=== PATIENT | female | born 1950 | race Caucasian/White ===

== ENCOUNTER → 2019-11-22 11:27 | Outpatient (CLI) | payer MEDICARE, BC, SELFPAY ==
--- NOTE | ~2019-11-22 | MM_ITS ---
EXAMINATION: MM screening kamila BI w david HISTORY: Screening mammogram TECHNIQUE: Craniocaudal and mediolateral oblique 3-D tomosynthesis images were obtained and synthetic 2-D images were generated. CAD analysis was submitted and interpreted. COMPARISON: 10/23/2018, 10/13/2017, 10/01/2016 bilateral digital screening mammogram examinations BREAST PARENCHYMAL COMPOSITION: There are scattered areas of fibroglandular density. FINDINGS: Occasional benign calcifications. Stable mild fibroglandular asymmetry. There is no evid ence of suspicious mass, calcification, or architectural distortion to suggest malignancy in either b reast. There has been no suspicious interval change. IMPRESSION: 1. No mammographic evidence of malignancy. 2. Recommend routine screening mammography in one year. BI-RADS Category 2: Benign finding(s). Reviewed, dictated and finalized at location A. 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
== END ==
PROVIDERS: PCP Internal Medicine; Visit Provider Internal Medicine
DX: Z12.31 Encounter for screening mammogram for malignant neoplasm of breast (principal)
CPT/HCPCS: 77063; 77067

== ENCOUNTER 2020-03-07 12:15 | Outpatient (CLI) | payer MEDICARE, BC, SELFPAY ==
--- NOTE | ~2020-03-07 | CT_ITS ---
EXAMINATION: CT abdomen w con INDICATION: Primary biliary cirrhosis, elevated liver function tests TECHNIQUE: Computed tomographic images of the abdomen were obtained after the administration of 100 c c of Omnipaque 350 intravenous contrast. The dose-length product (DLP) was 743.77 mGy-cm. Automated e xposure control and iterative reconstruction technique were employed. COMPARISON: 02/22/2015 FINDINGS: The lung bases are clear. The heart size is normal. Chronic mild liver surface nodularity i s again noted. A 2.6 cm mass of liver segment is decrease in size and has previously been characte rized as a hemangioma. There is diffuse heterogeneous enhancement of the liver, consistent with histo ry of primary biliary cirrhosis Stones are present in the nondistended gallbladder. The spleen, pancr eas, and adrenal glands are normal. There are areas of cortical scarring in the right kidney. The lef t kidney is unremarkable. There is chronic mild upper abdominal lymphadenopathy which is likely react felecia. There is severe thoracolumbar spondylosis. IMPRESSION: 1. Findings consistent with history of primary biliary cirrhosis including liver surface nodularity a nd heterogeneous enhancement of the liver. 2. Cholelithiasis without evidence of cholecystitis. Reviewed, dictated and finalized at location A. IMPRESSION: 1. Findings consistent with history of primary biliary cirrhosis including live r surface nodularity and heterogeneous enhancement of the liver. 2. Cholelithiasis without evidence of cholecystitis.
[2020-03-07 12:38] LABS: Estimated Glomerular Filt Rate > 60
== END 2020-03-07 12:16 | disposition home or self-care (01) ==
LOC: ANHIMG 12:19
PROVIDERS: PCP Internal Medicine; Visit Provider Internal Medicine Gastroenterology
DX: K74.3 Primary biliary cirrhosis (principal); R94.5 Abnormal results of liver function studies; K80.20 Calculus of gallbladder without cholecystitis without obstruction
CPT/HCPCS: 36415; 74160; Q9967

== ENCOUNTER → 2020-06-29 10:29 | Outpatient (CLI) | payer MEDICARE, BC, SELFPAY ==
--- NOTE | ~2020-06-29 | XR_ITS ---
EXAMINATION: HAND-SHEA ARTHRITIS 3+VIEWS DATE: 06/29/2020 11:03 INDICATION: Rheumatoid arthritis with limited range of motion at both hands, right greater than left TECHNIQUE: Posteroanterior, lateral, and oblique views of the left and of the right hands as well as a ballcatchers view of both hands were obtained. COMPARISON: None. FINDINGS: No fracture at either hand. Advanced osteoarthritis at the bilateral first carpal metacarpal joints w ith remodeling of the bones at both sides of the joint space and mild dorsal subluxation of the base of the first metacarpals. Severe osteoarthritis at the right second distal interphalangeal joint. Mod erate severity at the bilateral triscaphe joints and at the majority the remaining interphalangeal alla ints of both hands. There are secondary mild ulnar angulation at the right third and fifth proximal i nterphalangeal joints. Mild osteoarthritis at the bilateral first carpal metacarpal joints. No cortic al erosions or significant joint space narrowing at the remaining metacarpophalangeal joints to sugge st rheumatoid arthritis. IMPRESSION: 1. Polyarticular osteoarthritis, advanced at the bilateral first carpometacarpal joints and moderate to severe at many of the remaining joints in both hands. No findings to suggest rheumatoid arthritis. Reviewed, dictated and finalized at location A. IMPRESSION: 1. Polyarticular osteoarthritis, advanced at the bilateral first carpometacarpa l joints and moderate to severe at many of the remaining joints in both hands. No findings to suggest rheumatoid arthritis.
== END ==
PROVIDERS: PCP Internal Medicine; Visit Provider Internal Medicine
DX: E03.9 Hypothyroidism, unspecified (principal); M05.79 Rheumatoid arthritis with rheumatoid factor of multiple sites without organ or systems involvement
CPT/HCPCS: 73130

== ENCOUNTER → 2020-10-08 13:17 | Outpatient (CLI) | payer MEDICARE, BC, SELFPAY ==
--- NOTE | ~2020-10-08 | CT_ITS ---
EXAMINATION: CT abdomen wo/w con DATE: 10/08/2020 13:53 INDICATION: Abdominal pain. Primary biliary cirrhosis. TECHNIQUE: Computed tomography (CT) of the abdomen was performed without and with 100 mL Omnipaque-35 0 intravenous contrast. Automated exposure control and iterative reconstruction technique were employ ed. The dose-length product was 1885.19 mGy-cm. COMPARISON: 03/07/2020 FINDINGS: Unchanged minimal lingular atelectasis/scarring. Heart size is normal. No pericardial or pleural effu baljeet. Small diverticulum arising from the fundus of the stomach. Hepatomegaly with nodular liver surf kuldeep consistent with given history of cirrhosis with minimal perihepatic ascites. There is a subtle 3. 5 x 2.1 cm region of decreased attenuation on the precontrast images in segment 7 of liver which sunni esponds to a hemangioma identified with characteristic contrast enhancement pattern on prior MRI date d 02/17/2009. There is no discernible contrast enhancement or washout relative to the surrounding live r on the postcontrast images. No other suspicious hepatic lesions identified. A few small calcified g allstones in the dependent aspect of the partially decompressed, normal-appearing gallbladder. No int ra or extra hepatic biliary ductal dilation. Splenomegaly measuring 14.2 cm in craniocaudal length. S plenic calcification consistent with old granulomatous disease. Pancreas, bilateral adrenal glands an d kidneys are normal. Diffuse mesenteric edema and multiple mildly enlarged gastrohepatic, periportal , portacaval and para-aortic lymph nodes which are likely reactive. The visualized tip of the appendi x is normal. No bowel obstruction. Severe thoracolumbar spondylosis. IMPRESSION: 1. Cirrhosis with portal venous hypertension as evidenced by both splenomegaly, minimal perihepatic a scites and diffuse mesenteric edema. 2. Mild likely reactive abdominal lymphadenopathy. 3. Cholelithiasis. Reviewed, dictated and finalized at location A. 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 Cirrhosis with portal venous hypertension as evidenced by both splenomegaly, minimal perihepatic ascites and diffuse mesenteric edema. 2. Mild likely reactive abdominal lymphadenopathy. 3. Cholelithiasis.
[2020-10-08 13:38] LABS: Estimated Glomerular Filt Rate > 60
== END | disposition home or self-care (01) ==
PROVIDERS: PCP Internal Medicine; Visit Provider Internal Medicine
DX: R10.9 Unspecified abdominal pain (principal); K74.3 Primary biliary cirrhosis; K80.20 Calculus of gallbladder without cholecystitis without obstruction
CPT/HCPCS: 74170; Q9967

== ENCOUNTER → 2020-11-16 00:30 | Outpatient (CLI) | payer MEDICARE, BC, SELFPAY ==
[2020-11-16 17:47] LABS: SARS-CoV-2 RNA PCR Negative
== END ==
PROVIDERS: PCP Internal Medicine; Visit Provider Internal Medicine Gastroenterology
DX: Z01.812 Encounter for preprocedural laboratory examination (principal); Z20.822 Contact with and (suspected) exposure to COVID-19
CPT/HCPCS: C9803; U0003; U0005

== ENCOUNTER 2020-11-19 00:50 | Day surgery (SDC) | payer MEDICARE, BC, SELFPAY ==
[2020-11-09 09:48] VITALS: BMI 32.9
[2020-11-19 08:09] VITALS: BP 146/63; PULSE 74; RESP 20; TEMP 36.8; O2SAT 97
[2020-11-19] MEDS: LACTATED RINGERS 1,000 ML 150 ML IV CONT (08:18)
--- NOTE | 2020-11-19 09:08 | PM.HPGS ---
History of Present Illness History of Present Illness Consent: Risks, benefits, and alternatives have been discussed and questions answered. Patient agrees to proceed with procedure. Chief complaint: hx of colon polyps, Primary Biliary Cirrhosis Narrative: Sheba Nunez is a 70 year old female with a history of multiple colon polyps. She is also having epigastric abdominal pain PMFSH Past Medical History Medical History Allergies OSCAR positive (~09/2020) Asthma H/O gastroesophageal reflux (GERD) Mitral valve disease Psoriasis Psoriasis with arthropathy Surgical History Surgical History H/O tubal ligation History of mandibular surgery Family History Family History Father Cerebrovascular accident Family history of heart disease in male family member before age 55 Family history of cardiovascular disease Social History Social History Smoking packs per day: 1.5 Smoking cigarettes per day: 30.0 Years smoked: 50 Smoking pack-years: 75.00 Smoking status: Former smoker Tobacco type: cigarettes Smoking end date: 09/21/10 Alcohol intake: current Drinks per week: 5 Substance use type: does not use Living arrangements: alone Spiritual care concerns: No Meds Home Medications and Allergies Home Medications Medication Instructions Recorded Confirmed Type aspirin 81 mg tablet,delayed 81 mg PO DAILY 08/26/19 11/13/20 History release calcium carbonate 600 mg(1,500 1 tablet PO BID 08/26/19 11/13/20 History mg)-vitamin D3 800 unit chewable tablet folic acid 1 mg tablet 1 mg PO DAILY 08/26/19 11/13/20 History albuterol sulfate 90 mcg/actuation 1 inhalation INHALATION Q4H PRN 02/20/20 11/13/20 History aerosol inhaler umeclidinium 62.5 mcg-vilanterol 1 inhalation INHALATION Q24H #14 04/16/20 11/13/20 Rx 25 mcg/actuation powdr for each inhalation lansoprazole 30 mg capsule,delayed 30 mg PO DAILY #90 cap 08/20/20 11/13/20 Rx release lisinopril 10 1 tablet PO DAILY #90 tablet 09/03/20 11/13/20 Rx mg-hydrochlorothiazide 12.5 mg tablet omega 5-kot-ukh-fish oil 1,200 mg 1 cap PO DAILY 09/04/20 11/13/20 History (144 mg-216 mg) capsule ursodiol 300 mg capsule See Rx Instructions .ROUTE 09/17/20 11/13/20 Rx .COMPLEX #270 cap levothyroxine 200 mcg capsule 200 mcg PO DAILY #90 cap 10/10/20 11/13/20 Rx Allergies Allergy/AdvReac Type Severity Reaction Status Date / Time cefuroxime Allergy Unknown Swelling Verified 11/19/20 08:05 of Lip/Tongue/Throat Vital Signs Vital Signs - 24 hr 11/19/20 08:09 Temperature 36.8 C Pulse Rate 74 Respiratory Rate 20 Blood Pressure 146/63 H Pulse Oximetry 97 Exam Const: General: alert Orientation/consciousness: patient oriented x3 Resp: Auscultation: clear to auscultation bilaterally Cardio: Rhythm: regular rhythm GI: GI Palp: Yes Soft to palpation and No Tenderness to palpation present (GI) Neuro: General: patient oriented x3 Assessment and Plan Assessment and plan (1) Colon cancer screening: Code(s): Z12.11 - Encounter for screening for malignant neoplasm of colon Status: Acute (2) Epigastric pain: Code(s): R10.13 - Epigastric pain Status: Acute Assessment and Plan: Colonoscopy with possible biopsy or polypectomy or cautery or injection of substances.EGD with possible biopsy or dilatation or cautery.
--- NOTE | 2020-11-19 09:10 | WPDANESEPPF ---
Anes - Initial Pre Proc Eval Procedure: Operation Date: 11/19/20 09:30 Proposed Procedures p Esophagogastroduodenoscopy & Colonoscopy - Edward Marie MD Date/Time: 11/19/20 09:10 Surgeon: Edward Marie MD Pre Op Diagnosis: hx of colon polyps, Primary Biliary Cirrhosis Patient Data Age: 70 Gender: F Height: 5 ft 4 in Weight: 82.9 kg Last Vital Signs Temp 98.2 F 11/19/20 08:09 Pulse 74 11/19/20 08:09 Resp 20 11/19/20 08:09 BP 146/63 H 11/19/20 08:09 Pulse Ox 97 11/19/20 08:09 Allergies Allergy/AdvReac Type Severity Reaction Status Date / Time cefuroxime Allergy Unknown Swelling Verified 11/19/20 08:05 of Lip/Tongue/Throat Home Medications Medication Instructions Recorded Confirmed Type aspirin 81 mg tablet,delayed 81 mg PO DAILY 08/26/19 11/13/20 History release calcium carbonate 600 mg(1,500 1 tablet PO BID 08/26/19 11/13/20 History mg)-vitamin D3 800 unit chewable tablet folic acid 1 mg tablet 1 mg PO DAILY 08/26/19 11/13/20 History albuterol sulfate 90 mcg/actuation 1 inhalation INHALATION Q4H PRN 02/20/20 11/13/20 History aerosol inhaler umeclidinium 62.5 mcg-vilanterol 1 inhalation INHALATION Q24H #14 04/16/20 11/13/20 Rx 25 mcg/actuation powdr for each inhalation lansoprazole 30 mg capsule,delayed 30 mg PO DAILY #90 cap 08/20/20 11/13/20 Rx release lisinopril 10 1 tablet PO DAILY #90 tablet 09/03/20 11/13/20 Rx mg-hydrochlorothiazide 12.5 mg tablet omega 7-opr-wip-fish oil 1,200 mg 1 cap PO DAILY 09/04/20 11/13/20 History (144 mg-216 mg) capsule ursodiol 300 mg capsule See Rx Instructions .ROUTE 09/17/20 11/13/20 Rx .COMPLEX #270 cap levothyroxine 200 mcg capsule 200 mcg PO DAILY #90 cap 10/10/20 11/13/20 Rx Patient hx anesthesia problems: none Family hx anesthesia problems: none PMFSH Past Medical History Medical History Allergies OSCAR positive (~09/2020) Asthma H/O gastroesophageal reflux (GERD) Mitral valve disease Psoriasis Psoriasis with arthropathy Surgical History Surgical History H/O tubal ligation History of mandibular surgery Family History Family History Father Cerebrovascular accident Family history of heart disease in male family member before age 55 Family history of cardiovascular disease Social History Social History Smoking packs per day: 1.5 Smoking cigarettes per day: 30.0 Years smoked: 50 Smoking pack-years: 75.00 Smoking status: Former smoker Tobacco type: cigarettes Smoking end date: 09/21/10 Alcohol intake: current Drinks per week: 5 Substance use type: does not use Living arrangements: alone Spiritual care concerns: No Anes - Eval Final PreProcedure Day of Procedure 11/19/20 09:10 Patient weight: obese Heart: regular rate and rhythm Lungs: clear to auscultation Airway: Mallampati scale class II Neurological: alert and oriented Last oral intake: >/= 8 hours ASA classification: III Emergent: no Anesthetic plan: proceed Anesthesia type and monitoring: general GIVS and standard monitoring Informed Consent: The patient's anesthetic plan and its attendant risks and benefits were discussed with the patient/family/POA. Questions were solicited and answers provided to the satisfaction of the patient/family/POA.
[2020-11-19 09:57] VITALS: BP 95/57; PULSE 67; RESP 24; O2SAT 95
[2020-11-19 10:07] VITALS: BP 122/74; PULSE 70; RESP 20; O2SAT 98
[2020-11-19 10:17] VITALS: BP 121/68; PULSE 70; RESP 20; O2SAT 99
[2020-11-19] MEDS: SIMETHICONE ORAL SUSPENSION 20 MG/0.3 ML 30 ML BOTTLE 0.6 ML IRRIGATION (10:35)
== END 2020-11-19 10:31 | disposition home or self-care (01) ==
PROVIDERS: PCP Internal Medicine; Visit Provider Internal Medicine Gastroenterology
PROC: 0DJ08ZZ Inspection of Upper Intestinal Tract, Via Natural or Artificial Opening Endoscopic (ICD-10-PCS; CPT 43235; principal; 2020-11-19 09:30)
DX: Z12.11 Encounter for screening for malignant neoplasm of colon (principal); D12.0 Benign neoplasm of cecum; D12.3 Benign neoplasm of transverse colon; K31.7 Polyp of stomach and duodenum; I85.00 Esophageal varices without bleeding; K21.9 Gastro-esophageal reflux disease without esophagitis; I05.9 Rheumatic mitral valve disease, unspecified; L40.50 Arthropathic psoriasis, unspecified; J45.909 Unspecified asthma, uncomplicated; Z87.891 Personal history of nicotine dependence; Z79.82 Long term (current) use of aspirin
CPT/HCPCS: 45385; 43251; 88305; A9270; J2001; J2704; J7120

== ENCOUNTER → 2020-11-28 10:33 | Outpatient (CLI) | payer MEDICARE, BC, SELFPAY ==
--- NOTE | ~2020-11-28 | CT_ITS ---
EXAMINATION:CT lung screening DATE: 11/28/2020 10:58 INDICATION: Personal history of tobacco dependence. Smoker who quit 10 years ago with 75 pack year hi story. TECHNIQUE: Computed tomography (CT) of the chest was performed without intravenous contrast. Automate d exposure control and iterative reconstruction technique were employed. The dose-length product (DLP ) was 82.96 mGy-cm. COMPARISON: Chest CT 01/07/19 FINDINGS: There is mild atelectasis bilaterally. There is mild emphysema. Calcified right lung nodule s and calcified right hilar lymph nodes are consistent with old granulomatous disease. No pleural eff usion. The heart size is normal. There are coronary artery calcifications. No pericardial effusion. T he liver demonstrates surface nodularity, consistent with cirrhosis. There is a moderate volume of as cites. There is severe cervical and thoracic spondylosis. IMPRESSION: 1. Lung-RADS category 1: Negative. Continue annual screening with noncontrast low-dose chest CT in 12 months. 2. Cirrhosis of the liver. 3. Moderate volume of ascites. Reviewed, dictated and finalized at location A. 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 Lung-RADS category 1: Negative. Continue annual screening with noncontrast l ow-dose chest CT in 12 months. 2. Cirrhosis of the liver. 3. Moderate volume of ascites.
== END ==
PROVIDERS: PCP Internal Medicine; Visit Provider Internal Medicine
DX: Z12.2 Encounter for screening for malignant neoplasm of respiratory organs (principal); Z87.891 Personal history of nicotine dependence; K76.0 Fatty (change of) liver, not elsewhere classified; R18.8 Other ascites
CPT/HCPCS: 71271

== ENCOUNTER → 2020-11-28 10:34 | Outpatient (CLI) | payer MEDICARE, BC, SELFPAY ==
--- NOTE | ~2020-11-28 | XR_ITS ---
EXAMINATION: XR sacroiliac joints min 3V INDICATION: Psoriasis, chronic low back pain TECHNIQUE: AP and bilateral oblique views of the sacroiliac joints are obtained. COMPARISON: None available FINDINGS: The joint spaces are normal. There is no abnormal erosion or sclerosis of the sacroiliac alla ints. No fracture is identified. There is mild lower lumbar spondylosis. Phleboliths are present in t he pelvis. IMPRESSION: 1. Unremarkable examination. Reviewed, dictated and finalized at location A. 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
== END ==
PROVIDERS: PCP Internal Medicine; Visit Provider Internal Medicine
DX: L40.9 Psoriasis, unspecified (principal)
CPT/HCPCS: 72202

== ENCOUNTER 2020-11-29 09:01 | Outpatient (CLI) | payer MEDICARE, BC, SELFPAY | END 2020-11-29 09:02 | disposition home or self-care (01) | LOC: ANHCOVIDVC 09:01 | PROVIDERS: PCP Internal Medicine | DX: Z23 Encounter for immunization (principal) | CPT/HCPCS: 0001A; 91300 ==

== ENCOUNTER 2020-12-20 09:01 | Outpatient (CLI) | payer MEDICARE, BC, SELFPAY | END 2020-12-20 09:02 | disposition home or self-care (01) | LOC: ANHCOVIDVC 09:01 | PROVIDERS: PCP Internal Medicine | DX: Z23 Encounter for immunization (principal) | CPT/HCPCS: 0002A; 91300 ==

== ENCOUNTER 2021-01-07 08:08 | Outpatient (CLI) | payer MEDICARE, BC, SELFPAY ==
--- NOTE | ~2021-01-07 | XR_ITS ---
XR pelvis 1-2V DATE: 01/07/2021 08:28 INDICATION: Low back pain, right posterior hip pain. No injury. TECHNIQUE: AP view COMPARISON: None FINDINGS: The pubic symphysis and sacroiliac joints are intact. No pelvic fracture or bone destructio n is evident. No fracture or dislocation is evident at either hip. Hip joint spaces are symmetric and relatively preserved. IMPRESSION: No significant abnormality Reviewed, dictated and finalized at location A. IMPRESSION: No significant abnormality
--- NOTE | ~2021-01-07 | XR_ITS ---
XR lumbar spine 2-3V DATE: 01/07/2021 08:28 INDICATION: Low back pain radiating to right hip TECHNIQUE: AP, lateral, coned lateral lumbosacral views COMPARISON: None FINDINGS: Prominent eburnation and degenerative spurring at multiple lower thoracic interspaces. There are 6 functional lumbar vertebrae. There is multilevel degenerative disc disease, most pronounced at the last lumbosacral interspaces. There is prominent degenerative change at the apophyseal joints with slight grade 1 anterolisthesis b etween last 2 functional lumbar vertebra as result. The lumbar pedicles are intact. The sacroiliac joints are intact. IMPRESSION: Extensive degenerative changes of the lower thoracic and lumbar spine Reviewed, dictated and finalized at location A. IMPRESSION: Extensive degenerative changes of the lower thoracic and lumbar spi ne
[2021-01-10 06:09] LABS: Triiodothyronine T3 Free 2.4 pg/mL (2.3-4.2)
== END 2021-01-07 08:09 | disposition home or self-care (01) ==
PROVIDERS: PCP Internal Medicine; Visit Provider Internal Medicine
DX: E03.9 Hypothyroidism, unspecified (principal); M51.34 Other intervertebral disc degeneration, thoracic region; M51.36 Other intervertebral disc degeneration, lumbar region
CPT/HCPCS: 36415; 72100; 72170; 84439; 84443; 84481

== ENCOUNTER 2021-01-14 07:57 | Outpatient (CLI) | payer MEDICARE, BC, SELFPAY ==
--- NOTE | 2021-01-14 | EST_ITS ---
Patient Info Name: Sheba Nunez Age: 70 years : 1950 Gender: Female Ht: 63 in Wt: 170 lbs BSA: 1.88 m2 Exam Date: 01/14/2021 9:10 AM Exam Location: [facility] Stress Patient Status: Outpatient Admit Date: 01/14/2021 Staff Ordering Physician: Solo Alcocer MD Attending Provider: Solo Alcocer MD Exercise Technologist: Jenny Gaytan RDCS Exercise Physician: Gerald Rausch DO Exam Type: CA stress jennifer w NM Study Info A regadenoson stress test was performed. Summary 1. 1. Negative lexiscan stress test for ischemic ST changes by ECG criteria. 2. 2. Stable hemodynamics throughout the test. 3. 3. Nuclear scan to follow and will be reported separately. Please correlate with it. 4. 4. Patient informed of the above results. Protocol: Lexiscan Stress ECG Details Stage: REST Duration (min): 8 min : 4 sec HR (bpm): 71 SBP (mmHg): 119 DBP (mmHg): 67 Stage: REST Duration (min): 10 min : 24 sec HR (bpm): 70 SBP (mmHg): 119 DBP (mmHg): 67 Stage: STAGE 1 Duration (min): 1 min : 0 sec HR (bpm): 86 SBP (mmHg): 123 DBP (mmHg): 71 Stage: RECOVERY Duration (min): 1 min : 0 sec HR (bpm): 91 SBP (mmHg): 123 DBP (mmHg): 53 Stage: RECOVERY Duration (min): 2 min : 0 sec HR (bpm): 90 SBP (mmHg): 123 DBP (mmHg): 53 Stage: RECOVERY Duration (min): 3 min : 0 sec HR (bpm): 90 SBP (mmHg): 121 DBP (mmHg): 55 Stage: RECOVERY Duration (min): 3 min : 8 sec HR (bpm): 89 SBP (mmHg): 121 DBP (mmHg): 55 Rest HR: 70 bpm Peak HR: 93 bpm Rest Sys BP: 119 mmHg Peak Sys BP: 123 mmHg Max Pred HR: 152 bpm % Max Pred HR: 61 % Target HR: 129 bpm Max RPP: 11,439 bpm*mmHg Termination Reason: Completed protocol Cardiac Symptoms: Shortness of breath Total Time: 1 min : 0 sec Rest Munson BP: 67 mmHg Peak Munson BP: 71 mmHg Total Dose: 0.4 mg Resting ECG Sinus rhythm, borderline ST-T wave abnormality in inferior leads. Stress ECG No ST changes. Arrhythmias None. Report Signatures
--- NOTE | ~2021-01-14 | NM_ITS ---
EXAMINATION: NM jennifer stress w perfusion DATE: 01/14/2021 11:44 INDICATION: Chest pain. TECHNIQUE: Rest images were obtained following intravenous administration of 10.9 mCi Tc99m tetrofosm in (Myoview). The patient was infused intravenously with Lexiscan (regadenoson). Then, 33.4 mCi Tc99m tetrofosmin (Myoview) was administered intravenously, and stress images were obtained. Data was lana nstructed into short axis and horizontal and vertical long axis SPECT images. Gated SPECT images were also obtained. COMPARISON: None. FINDINGS: There is no definite reversible or fixed perfusion abnormality to suggest ischemia or infar ction. There is no segmental wall motion abnormality. Left ventricular ejection fraction measures > 70%. IMPRESSION: 1. No definite ischemia or infarct. 2. Normal left ventricular ejection fraction measuring >70%. Reviewed, dictated and finalized at location A.
== END 2021-01-14 07:58 | disposition home or self-care (01) ==
PROVIDERS: PCP Internal Medicine; Visit Provider Internal Medicine
DX: R07.9 Chest pain, unspecified (principal)
CPT/HCPCS: 78452; 93017; A9502; J2785

== ENCOUNTER → 2021-01-26 08:09 | Outpatient (CLI) | payer MEDICARE, BC, SELFPAY ==
--- NOTE | ~2021-01-26 | MR_ITS ---
EXAMINATION: MR cervical spine wo con DATE: 01/26/2021 09:45 INDICATION: Neck pain. TECHNIQUE: Magnetic resonance imaging (MRI) of the cervical spine was performed without intravenous c ontrast. Sequences included sagittal T2-weighted FSE, sagittal STIR FSE, sagittal T1-weighted FSE, ax ial MERGE, and axial T2-weighted FSE. COMPARISON: Cervical spine MRI 10/15/2011 FINDINGS: There is 11 degrees dextroscoliosis of cervical spine. There is 2 mm anterolisthesis of C4 on C5, 2 mm retrolisthesis of C5 on C6, and 2 mm anterolisthesis of C7 on T1. There is mildly decreas ed disc height at C4-C5 and severely decreased disc height at C5-C6 and C6-C7. The spinal cord signal intensity is normal. The following disc levels are specifically discussed: C2-C3: The disc does not extend beyond the endplate margin. There is ankylosis of the uncovertebral j oints without hypertrophy. There is ankylosis of the facet joints without hypertrophy. There is no ne ural foraminal stenosis. There is no central canal stenosis. C3-C4: The disc does not extend beyond the endplate margin. There is ankylosis of the uncovertebral j oints without hypertrophy. There is ankylosis of the facet joints with mild hypertrophy. There is mil d bilateral neural foraminal stenosis. There is no central canal stenosis. C4-C5: The disc does not extend beyond the endplate margin. There is severe bilateral uncovertebral j oint osteoarthritis. There is severe bilateral facet joint osteoarthritis. There is moderate bilatera l neural foraminal stenosis. There is mild central canal stenosis. C5-C6: The disc is bulging. There is severe bilateral uncovertebral joint osteoarthritis. There is mi ld right and severe left facet joint osteoarthritis. There is mild right and moderate left neural for aminal stenosis. There is mild central canal stenosis with ventral indentation of the spinal cord. C6-C7: The disc is bulging. There is severe bilateral uncovertebral joint osteoarthritis. There is mi ld right and moderate left facet joint osteoarthritis. There is mild right and moderate left neural f oraminal stenosis. There is mild central canal stenosis with ventral indentation of the spinal cord. C7-T1: The disc does not extend beyond the endplate margin. There is no uncovertebral joint osteoarth ritis. There is severe bilateral facet joint osteoarthritis. There is mild bilateral neural foraminal stenosis. There is no central canal stenosis. IMPRESSION: 1. Severe cervical spondylosis, stable from 10/15/2011. 2. Ankylosis of the uncovertebral joints and facet joints at C2-C3 and C3-C4. Reviewed, dictated and finalized at location A.
--- NOTE | ~2021-01-26 | MR_ITS ---
EXAMINATION: MR lumbar spine wo con DATE: 01/26/2021 10:05 INDICATION: Low back pain. TECHNIQUE: Magnetic resonance imaging (MRI) of the lumbar spine was performed without intravenous con trast. Sequences included sagittal T2-weighted FSE, sagittal T2-weighted FS FSE, sagittal T1-weighted FSE, and axial T2-weighted FSE. COMPARISON: Lumbar spine radiographs 01/07/2021 FINDINGS: There is 4 degrees dextrocurvature of lumbar spine. There is 3 mm retrolisthesis of T12 on L1, L1 on L2, L2 on L3, and L3 on L4. There is mild chronic anterior wedging of T11 and T12 vertebral bodies. There is severely decreased disc height from T10-T11 through T12-L1, moderately decreased di sc height from L1-L2 through L4-L5, and severely decreased disc height at L5-S1. There is a hemangiom a in L2 vertebral body. The distal spinal cord signal intensity is normal. The conus medullaris is at L1-L2. The following disc levels are specifically discussed: L1-L2: The disc is bulging. There is moderate bilateral facet joint osteoarthritis. There is mild ofe ateral neural foraminal stenosis. There is mild central canal stenosis. L2-L3: The disc is bulging. There is moderate bilateral facet joint osteoarthritis. There is mild ofe ateral neural foraminal stenosis. There is mild central canal stenosis. L3-L4: The disc is bulging and has an annular fissure. There is mild bilateral facet joint osteoarthr itis. There is mild right neural foraminal stenosis. There is mild central canal stenosis. L4-L5: The disc is bulging and has an annular fissure. There is severe bilateral facet joint osteoart hritis. There is mild bilateral neural foraminal stenosis. There is moderate central canal stenosis. L5-S1: The disc is bulging and has an annular fissure. There is severe right and moderate left facet joint osteoarthritis. There is mild bilateral neural foraminal stenosis. There is mild central canal stenosis. IMPRESSION: 1. Severe lumbar spondylosis. Reviewed, dictated and finalized at location A.
== END ==
PROVIDERS: PCP Internal Medicine; Visit Provider Nurse Practitioner Family
DX: M47.892 Other spondylosis, cervical region (principal); M47.896 Other spondylosis, lumbar region
CPT/HCPCS: 72141; 72148

== ENCOUNTER → 2021-01-31 10:08 | Outpatient (CLI) | payer MEDICARE, BC, SELFPAY ==
--- NOTE | ~2021-01-31 | MM_ITS ---
EXAMINATION: MM screening [facility] BI w david HISTORY: Screening mammogram TECHNIQUE: Craniocaudal and mediolateral oblique 3-D tomosynthesis images were obtained and synthetic 2-D images were generated. CAD analysis was submitted and interpreted. COMPARISON: 11/22/2019, 10/23/2018, 10/13/2017 BREAST PARENCHYMAL COMPOSITION: There are scattered areas of fibroglandular density. FINDINGS: There is no evidence of suspicious mass, calcification, or architectural distortion to sugg est malignancy in either breast. There has been no suspicious interval change. IMPRESSION: 1. No mammographic evidence of malignancy. 2. Recommend routine screening mammography in one year. BI-RADS Category 1: Negative Reviewed, dictated and finalized at location A.
== END ==
PROVIDERS: PCP Internal Medicine; Visit Provider Internal Medicine
DX: Z12.31 Encounter for screening mammogram for malignant neoplasm of breast (principal)
CPT/HCPCS: 77063; 77067

== ENCOUNTER 2021-03-29 14:08 | Inpatient (IN) | payer MEDICARE, BC, SELFPAY ==
--- NOTE | ~2021-03-29 | US_ITS ---
EXAMINATION: US retroperitoneal duplex ltd DATE: 03/30/2021 09:21 INDICATION: Hypertension. TECHNIQUE: Multiple grayscale, color Doppler, and pulsed Doppler images of the kidneys and renal jennifer joanna were obtained. COMPARISON: CT abdomen 10/08/2020 FINDINGS: The aorta peak systolic velocity is 151 cm/s. The right renal artery peak systolic velocity is 99 cm/ s in the proximal segment, 92 cm/s in the mid segment, and 53 cm/s in the distal segment. The left re nal artery peak systolic velocity is 64 cm/s in the proximal segment, 89 cm/s in the mid segment, and 52 cm/s in the distal segment. IMPRESSION: 1. No Doppler evidence of renal artery stenosis. The prior CT similarly shows no significant renal a rtery stenosis. Reviewed, dictated and finalized at location A. IMPRESSION: 1. No Doppler evidence of renal artery stenosis. The prior CT similarly shows no significant renal artery stenosis.
--- NOTE | ~2021-03-29 | US_ITS ---
EXAMINATION: US renal BI DATE: 03/30/2021 09:20 INDICATION: Acute kidney injury. TECHNIQUE: Multiple ultrasound grayscale images of the kidneys were obtained. COMPARISON: CT abdomen 10/08/2020 FINDINGS: The right kidney measures 10.1 x 4.9 x 4.1 cm. The left kidney measures 11.8 x 6.2 x 5.7 cm. The kidn eys demonstrate normal parenchymal echogenicity. There is no hydronephrosis. The bladder is normal. T here is a small volume of ascites. IMPRESSION: 1. Normal kidneys. No hydronephrosis. 2. Small volume of ascites. Reviewed, dictated and finalized at location A.
[2021-03-29 14:46] VITALS: BP 94/48; PULSE 83; RESP 18; TEMP 36.9; O2SAT 98
[2021-03-29 15:12] LABS: Basophils Absolute Auto 0.1 K/mm3 (0.0-0.1); Eosinophils Absolute Auto 0.2 K/mm3 (0-0.3); Eosinophils Percent Auto 1.3 % (0-4.4); Hematocrit 40.2 % (37.0-47.0); Hemoglobin 14.2 g/dL (12.0-15.0); Immature Granulocyte Absolute 0.03 K/mm3 (0.00-0.031); Immature Granulocyte Percent A 0.3 % (0-0.5); Lymphocytes Percent Auto 22.9 % (18.3-44.2); Mean Corpuscular HGB Conc 35.3 g/dl (32-36); Mean Corpuscular Hemoglobin 33.6 pg (26-34); Mean Corpuscular Volume 95.3 fl (80-100); Mean Platelet Volume 9.8 fl (7.4-10.4); Monocytes Absolute Auto 1.3 K/mm3 (0.1-0.6); Neutrophils Absolute Auto 7.2 K/mm3 (1.3-6.7); Neutrophils Percent Auto 63.5 % (45.5-73.1); Platelet Count Result 533 k/mm3 (150-375); Red Blood Count 4.22 M/mm3 (4.2-5.4); Red Cell Distribution Width 15.4 % (11.5-14.5); White Blood Count 11.4 K/mm3 (4.5-10.0)
[2021-03-29 15:25] LABS: Alanine Aminotransferase 19 U/L (4-35); Albumin Level 3.6 g/dL (3.5-5.1); Alkaline Phosphatase 367 U/L (38-126); Anion Gap 11 mmol/L (8-16); Aspartate Amino Transferase 43 U/L (14-36); Bilirubin,Total 1.6 mg/dL (0.2-1.3); Blood Urea Nitrogen 30 mg/dL (7-17); Calcium 9.3 mg/dL (8.4-10.2); Carbon Dioxide 24 mmol/L (22-30); Chloride 103 mmol/L (98-107); Estimated CRCL calculation 17 ml/min; Estimated Glomerular Filt Rate 17; Glucose 103 mg/dL (65-105); Lipase 272 U/L (23-300); Potassium 3.1 mmol/L (3.4-5.0); Sodium 138 mmol/L (137-145)
[2021-03-29 17:00] VITALS: BP 102/49; PULSE 82; RESP 14; O2SAT 99
--- NOTE | 2021-03-29 17:15 | ED.GENADULT ---
HPI - General Adult General Chief complaint: Recheck/Abnormal Lab/Rx Stated complaint: elevated BUN Time Seen by Provider: 03/29/21 17:05 History of Present Illness HPI narrative: Patient is 70 years old white female history of primary biliary cirrhosis, scheduled by Dr. Vance who works at [facility] to get CT scan of the abdomen and pelvis for regular checkup. Blood work-up today showed creatinine of 2.6. Patient was asked to go to the emergency room for further evaluation. Patient is asymptomatic, denying any fever, chills, nausea, vomiting, abdominal pain, chest pain, shortness of breath, increased the size of the ascites. Patient also would like to go home after evaluation. Patient is fully vaccinated for COVID-19. Patient was started on Lasix 20 mg once a day on March [address] Vance for ascites. Patient also not been drinking enough fluid lately. Related Data Home Medications Medication Instructions Recorded Confirmed calcium carbonate 600 mg(1,500 1 tablet PO BID 08/26/19 03/26/21 mg)-vitamin D3 800 unit chewable tablet folic acid 1 mg tablet 1 mg PO DAILY 08/26/19 03/26/21 albuterol sulfate 90 mcg/actuation 1 inhalation INHALATION Q4H PRN 02/20/20 03/26/21 aerosol inhaler omega 6-wet-cul-fish oil 1,200 mg 1 cap PO DAILY 09/04/20 03/26/21 (144 mg-216 mg) capsule vitamin B complex 1 tablet PO DAILY 11/26/20 03/26/21 furosemide 20 mg tablet 20 mg PO QAM 03/13/21 03/26/21 spironolactone 50 mg tablet 50 mg PO DAILY 03/13/21 03/26/21 Allergies Allergy/AdvReac Type Severity Reaction Status Date / Time No Known Allergies Allergy Verified 03/29/21 14:53 Review of Systems Review of Systems: Narrative: CONSTITUTIONAL: Denies fever, chills, or sweats. EYES: Denies visual changes, redness, or discharge. ENT: Denies rhinorrhea, congestion, sore throat, or otalgia. CARDIOVASCULAR: Denies chest pain, palpitations, or edema. RESPIRATORY: Denies cough or dyspnea. GASTROINTESTINAL: Denies abdominal pain, nausea, vomiting, or diarrhea. GENITOURINARY: Denies dysuria or hematuria. SKIN: Denies rash or itching. MUSCULOSKELETAL: Denies back pain, joint pain, or myalgia. NEUROLOGIC: Denies headache, numbness, or weakness. PSYCHIATRIC: Denies anxiety or depression. [facility] Past Medical History Medical History Allergies OSCAR positive (~09/2020) Ascites Asthma Benign essential hypertension BMI 28.0-28.9,adult BMI 29.0-29.9,adult BMI 31.0-31.9,adult COPD (chronic obstructive pulmonary disease) KELLER (dyspnea on exertion) Encounter for Medicare annual wellness exam Encounter for routine adult health examination without abnormal findings Follow up H/O gastroesophageal reflux (GERD) Hemorrhoid Hypothyroidism Low back pain Mitral valve disease Mixed hyperlipidemia On shelter drug therapy Personal history of nicotine dependence Psoriasis Psoriasis with arthropathy Umbilical hernia Surgical History Surgical History H/O tubal ligation History of colonoscopy History of mandibular surgery Family History Family History Father Cerebrovascular accident Family history of heart disease in male family member before age 55 Family history of cardiovascular disease Social History Social History Smoking packs per day: 1.5 Smoking cigarettes per day: 30.0 Years smoked: 50 Smoking pack-years: 75.00 Smoking status: Former smoker Tobacco type: cigarettes Smoking end date: 08/21/18 Alcohol intake: current Drinks per week: 5 Substance use type: does not use Spiritual care concerns: No Exam Narrative: Exam Narrative: General appearance: Well-developed, well-nourished Skin: Normal color Head: Normocephalic, nontraumatic Eyes: Clear conjunctiva ENT: Oropharynx normal, ears normal, nose normal N
[2021-03-29 17:55] LABS: Add Urine Microscopic? YES; Appearance Urine Cloudy (Clear); Bilirubin Urine Negative (Negative); Blood Urine Negative (Negative); Color Urine Amber (Yellow); Glucose Urine UA Negative (Negative); Hyaline Casts Urine 20-29 /lpf; Ketones Urine Negative (Negative); Leukocyte Esterase Ur Negative LEU/UL (Negative); Mucus Urine Rare /lpf; Nitrate Urine Negative (Negative); Protein Urine 1+ mg/dL (Negative); RBC Urine 0-2 /hpf (0-2); Specific Grav Ur 1.012 (1.001-1.035); Squamous Epithelial Cell Urine Few /hpf (Few); Urobilinogen Urine Negative mg/dL (<2.0); WBC Urine 0-3 /hpf
[2021-03-29 18:55] VITALS: BP 93/43; PULSE 77; RESP 18; O2SAT 95
[2021-03-29] MEDS: SODIUM CHLORIDE 0.9% IV 1,000 ML 999 ML IV CONT (19:49)
[2021-03-29] MEDS: POTASSIUM CHLORIDE 20 MEQ TABLET 40 MEQ PO (19:49)
[2021-03-29 20:00] VITALS: BP 84/41; PULSE 75; O2SAT 99
[2021-03-29 21:00] VITALS: BP 115/58; PULSE 85; RESP 18; TEMP 36.1; O2SAT 98
--- NOTE | 2021-03-29 21:00 | ADMGEN ---
This patient, Sheba Nunez, was admitted to Medical Room 340-01. Patient/family oriented to hospital policies and general routines including ID bracelet, bed and alarms, visiting hours, pain management, procedures, bathroom and other care routines, personal items, smoking policy, room service/diet, and visiting hours. Information on how to activate the Rapid Response Team has been discussed. Patient/Family are encouraged to report perceived risks to care and to ask questions if they do not understand what they are told or what they should do.
[2021-03-29] MEDS: SODIUM CHLORIDE 0.9% IV 1,000 ML 150 ML IV CONT (21:30)
[2021-03-29 23:31] VITALS: BP 103/46; PULSE 84; RESP 16; TEMP 36.2; O2SAT 97
--- NOTE | 2021-03-30 02:36 | PM.IMHP ---
H&P: HPI History of Present Illness Date/Time: 03/30/21 02:36 Chief Complaint: ABNORMAL LAB Narrative: THIS IS A 70-YEAR-OLD FEMALE WITH PAST MEDICAL HISTORY SIGNIFICANT FOR PRIMARY SCLEROSING CHOLANGITIS, HEPATIC SEVERAL. PATIENT PRESENTED TO THE EMERGENCY ROOM AFTER SHE WAS FOUND TO HAVE AN ABNORMAL LAB VALUE ON ROUTINE LAB WORK. CREATININE WAS ELEVATED. HOWEVER PATIENT DENIES ANY SYMPTOMS NO FEVERS NO CHILLS NO NAUSEA NO VOMITING NO DIARRHEA HAS HAD ISSUES WITH HER HEMORRHOIDS BUT NO OTHER ISSUES NO COUGH NO SPUTUM PRODUCTION NO CHEST PAIN NO SHORTNESS OF BREATH NO ABDOMINAL PAIN. ON REPEAT LAB WORK IN THE EMERGENCY SHE WAS FOUND TO HAVE A CREATININE OF 2.8. PATIENT STATED THAT SHE HAS BEEN ON 3 DIURETICS. Review of Systems Review of Systems: Narrative: ABNORMAL LAB VALUE Constitutional: Constitutional: Denies fatigue, Denies fever(s), Denies lethargy, Denies malaise and Denies weakness Eyes: Eyes: Denies change in vision ENT: Denies nasal congestion, Denies nasal discharge and Denies nasal obstruction Cardiovascular: Cardiovascular: Denies chest pain at rest, Denies irregular heart rhythm, Denies lightheadedness, Denies radiating jaw, neck or arm pain, Denies palpitations and Denies dyspnea on exertion Respiratory: Respiratory: Denies cough and Denies dyspnea Gastrointestinal: Gastrointestinal: Denies diarrhea, Denies nausea and Denies vomiting Genitourinary: Genitourinary: Reports no additional female genitourinary complaints Musculoskeletal: Musculoskeletal: Denies arthralgias and Denies joint swelling Integumentary/Breasts: Skin/Breast: Reports system reviewed and no additional complaints, except as docu Neurologic: Reports system reviewed and no additional complaints, except as documented Psychiatric: Psychiatric: Reports no additional psychiatric complaints Endocrine: Endocrine: Reports no additional endocrine complaints Hematologic/Lymphatic: Hematologic/Lymphatic: Reports no additional hematologic/lymphatic complaints Allergic/Immunologic: Allergic/Immunologic: Reports no additional allergic/immunologic complaints [facility] Past Medical History Medical History Allergies OSCAR positive (~09/2020) Ascites Asthma Benign essential hypertension BMI 28.0-28.9,adult BMI 29.0-29.9,adult BMI 31.0-31.9,adult COPD (chronic obstructive pulmonary disease) KELLER (dyspnea on exertion) Encounter for Medicare annual wellness exam Encounter for routine adult health examination without abnormal findings Follow up H/O gastroesophageal reflux (GERD) Hemorrhoid Hypothyroidism Low back pain Mitral valve disease 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 Personal history of nicotine dependence Psoriasis Psoriasis with arthropathy Umbilical hernia Surgical History Surgical History H/O tubal ligation History of colonoscopy History of mandibular surgery Family History Family History Father Cerebrovascular accident Family history of heart disease in male family member before age 55 Family history of cardiovascular disease Social History Social History Smoking packs per day: 1.5 Smoking cigarettes per day: 30.0 Years smoked: 50 Smoking pack-years: 75.00 Smoking status: Former smoker Tobacco type: cigarettes Second hand tobacco smoke exposure: Yes Smoking end date: 08/21/18 Alcohol intake: never Drinks per week: 5 Substance use: never Substance use type: does not use Spiritual care concerns: No Meds Home Medications and Allergies Home Medications Medication Instructions Recorded Confirmed Type calcium carbonate 600 mg(1,500 1 tablet PO BID 08/26/19 03/29/21 History mg)-vitamin D3 800 unit chewable tablet folic acid 1 mg tablet 1 mg PO DAILY 08/26/19 03/29/21 Histo
[2021-03-30] MEDS: SODIUM CHLORIDE 0.9% IV 1,000 ML 150 ML IV CONT ×3 (04:11→18:17)
[2021-03-30 06:09] LABS: Anion Gap 11 mmol/L (8-16); Blood Urea Nitrogen 29 mg/dL (7-17); Calcium 8.2 mg/dL (8.4-10.2); Carbon Dioxide 20 mmol/L (22-30); Chloride 108 mmol/L (98-107); Estimated CRCL calculation 17 ml/min; Estimated Glomerular Filt Rate 17; Glucose 87 mg/dL (65-105); Potassium 3.4 mmol/L (3.4-5.0); Sodium 139 mmol/L (137-145)
[2021-03-30] MEDS: LEVOTHYROXINE SODIUM 100 MCG TABLET 200 MCG PO (06:34)
[2021-03-30 06:52] LABS: Creatinine Urine 174.8 mg/dL
[2021-03-30 06:55] LABS: Sodium Urine Random 22 meq/L
[2021-03-30 08:00] VITALS: BP 91/42; PULSE 74; RESP 16; TEMP 36.1; O2SAT 99
[2021-03-30] MEDS: UMECLIDINIUM/VILANTEROL 62.5-25 MCG ELLIPTA 1 PUFF INHALATION (08:31)
[2021-03-30] MEDS: FOLIC ACID 1 MG TABLET PO (08:32)
[2021-03-30] MEDS: OMEGA 3 POLYUNSAT FATTY ACIDS 1 GM CAP PO (08:32)
[2021-03-30] MEDS: VITAMIN B COMPLEX CAPSULE 1 CAP PO (08:33)
[2021-03-30] MEDS: PSYLLIUM POWDER PACKET 1 PACKET PO ×2 (08:33→18:17)
[2021-03-30] MEDS: ROSUVASTATIN 10 MG TABLET 20 MG PO (08:33)
[2021-03-30] MEDS: ursodioL 300 MG CAPSULE 600 MG BY MOUTH ×2 (08:33→18:18)
[2021-03-30] MEDS: POTASSIUM CHLORIDE 20 MEQ PACKET (FOR LIQUID) 40 MEQ PO (08:33)
[2021-03-30] MEDS: LANSOPRAZOLE ORAL SUSP 30 MG/10 ML ORAL.SUSP PO (08:41)
[2021-03-30 09:27] VITALS: O2SAT 94
[2021-03-30] MEDS: LIOTHYRONINE SODIUM 5 MCG TABLET PO (09:28)
--- NOTE | 2021-03-30 10:27 | PM.CNNEP ---
Assessment and Plan Assessment and plan (1) SHELDON (acute kidney injury): Code(s): N17.9 - Acute kidney failure, unspecified Status: Acute Assessment and Plan: Sheba has acute kidney injury. Urine electrolytes are pre renal. UA is bland renal ultrasound is normal. She was just placed on diuretics. This is probably the culprit. She has been placed on IV fluids and diuretics were held. The creatinine has not changed but it has only been a few hours. The CO2 dropped a little bit with hydration. Will recheck this tomorrow. (2) Primary biliary cirrhosis: Code(s): K74.3 - Primary biliary cirrhosis Status: Acute Assessment and Plan: The patient has ascites and esophageal varices. (3) Acute hypokalemia: Code(s): E87.6 - Hypokalemia Status: Acute Assessment and Plan: Potassium was low on admission. This has been corrected. (4) Benign essential hypertension: Code(s): I10 - Essential (primary) hypertension Status: Acute Assessment and Plan: Blood pressure is a little bit soft. She is off her blood pressure meds (5) Mixed hyperlipidemia: Code(s): E78.2 - Mixed hyperlipidemia Status: Acute Assessment and Plan: she is on Crestor (6) COPD (chronic obstructive pulmonary disease): Qualifiers: COPD type: unspecified COPD Qualified Code(s): J44.9 - Chronic obstructive pulmonary disease, unspecified Code(s): J44.9 - Chronic obstructive pulmonary disease, unspecified Status: Acute Assessment and Plan: she has stopped smoking History of Present Illness Reason for Consult Consult date: 03/30/21 Chief Complaint Chief complaint: SHELDON,Hypokalemia,History of Primary Biliary Cirrhos History of Present Illness Narrative: Sheba is a very pleasant 70-year-old lady who has multiple medical problems including hypertension, hypothyroidism, hyperlipidemia, primary biliary cirrhosis With ascites and cirrhosis, autoimmune hypothyroidism. positive OSCAR, asthma, COPD, mitral valve disease, psoriasis. The patient has problem was PBC for many years. It was not until the last few months that she has developed ascites. She was referred to [facility] for evaluation. The doctor there placed her on diuretics. She was placed on a loop diuretic and spironolactone to balance the potassium in efforts to reduce the amount of ascites so that she may not need paracentesis. She started these about 2 weeks ago. She went to have a CT scan done with contrast yesterday so they did Pre testing creatinine which was elevated so she was sent to the emergency room. In the ER she was evaluated. She felt okay but her numbers were bad so she was admitted. She has been given some IV fluids. Her diuretics have been held. The patient stop smoking about 6 years ago go. She stopped drinking a while back as well. Review of Systems Constitutional: Constitutional: Reports no additional constitutional complaints Eyes: Eyes: Reports no additional eye complaints ENT: Reports system reviewed and no additional complaints, except as documented Cardiovascular: Cardiovascular: Reports no additional cardiovascular complaints Respiratory: Respiratory: Reports no additional respiratory complaints Gastrointestinal: Gastrointestinal: Reports no additional gastrointestinal complaints Genitourinary: Genitourinary: Reports no additional female genitourinary complaints Musculoskeletal: Musculoskeletal: Reports no additional musculoskeletal complaints Integumentary/Breasts: Skin/Breast: Reports system reviewed and no additional complaints, except as docu Neurologic: Reports system reviewed and no additional complaints, except as documented Psychiatric: Psychiatric: Reports no additional psychiatric complaints Endocrine: Endocrine: Reports no additional endocrine complaints [facility] Past Medical History Medical History (Reviewe
[2021-03-30 12:28] LABS: Albumin Level 2.9 g/dL (3.5-5.1); Anion Gap 11 mmol/L (8-16); Blood Urea Nitrogen 29 mg/dL (7-17); Calcium 8.5 mg/dL (8.4-10.2); Carbon Dioxide 19 mmol/L (22-30); Chloride 108 mmol/L (98-107); Estimated CRCL calculation 17 ml/min; Estimated Glomerular Filt Rate 18; Glucose 100 mg/dL (65-105); Potassium 4.2 mmol/L (3.4-5.0); Sodium 138 mmol/L (137-145)
--- NOTE | 2021-03-30 13:43 | PM.IMPN ---
Progress Note: A&P Assessment and Plan (1) SHELDON (acute kidney injury): Code(s): N17.9 - Acute kidney failure, unspecified Status: Acute Assessment and Plan: Likely 2nd to Lasix and Spironolactone but not improving with IV fluids. UA clear except 20-29 hyaline casts. Chip 22 with FENa 0.2%. Anticardiolipin Ab and mitochondrial Ab positive in November but does have PBC. Renal US normal and renal artery not stenotic. ATN? Dehydration? Hepatorenal? Continue to hold lisinopril, spironolactone and furosemide. Continue IV fluids for now. Appreciate nephrology input. (2) Primary biliary cirrhosis: Code(s): K74.3 - Primary biliary cirrhosis Status: Acute Assessment and Plan: Has developed ascites recently. Has not had paracentesis. Diuretics on hold. Ascites may worsen with the IV fluids. Follow. (3) Internal and external bleeding hemorrhoids: Code(s): K64.4 - Residual hemorrhoidal skin tags; K64.8 - Other hemorrhoids Status: Acute Assessment and Plan: Stable. Continue localized care with [facility]. (4) COPD (chronic obstructive pulmonary disease): Qualifiers: COPD type: unspecified COPD Qualified Code(s): J44.9 - Chronic obstructive pulmonary disease, unspecified Code(s): J44.9 - Chronic obstructive pulmonary disease, unspecified Status: Acute Assessment and Plan: Stable. She no longer smokes. Continue inhalers. (5) Psoriasis: Code(s): L40.9 - Psoriasis, unspecified Status: Acute Assessment and Plan: Patietn with skin rash bilateral LE and up into the groin. Buttock area also affected. Add Triamcinolone ointment prn (6) DVT prophylaxis: Code(s): Z29.9 - Encounter for prophylactic measures, unspecified Status: Acute Assessment and Plan: Heparin Subjective Date/time seen: 03/30/21 13:43 Interval history: 70yo female with PBC here for SHELDON. Patient had CT with contrast ordered but screening labs showed elevated Cr so she was told to come to the ED. She slwpt poorly. Poor UOP. Nml BMs. Poor oral intake over the past few months with a 30# weight loss since November. Has PBC and was doing well until recently when found to have ascites. Started on Lasix and Spirono 6/22/21. Exam Narrative: Exam Narrative: AF 96.9 91/42 74 16 94% ra Gen - NARD Chest - CTA bilaterally, nml RR CV - RRR S1/S2 Abd -Protuberant. Liver tip appreciated. Soft. Positive bowel sounds. Ext - No pedal edema. 2+ DP pulses bilaterally. Psych - normal mood but becomes tearful when talking about her dog being home alone Skin - small, scattered dry crusted lesions bilateral LE with patches of faint erythema worse medial thigh Objective Data Vital Signs Vital Signs: Vital Signs - 24 hr 03/29/21 14:46 03/29/21 17:00 03/29/21 18:55 Temperature 98.5 F Pulse Rate 83 82 77 Respiratory Rate 18 14 18 Blood Pressure 94/48 L 102/49 L 93/43 L Pulse Oximetry 98 99 95 03/29/21 20:00 03/29/21 21:00 03/29/21 23:31 Temperature 96.9 F L 97.1 F L Pulse Rate 75 85 84 Respiratory Rate 18 16 Blood Pressure 84/41 L 115/58 L 103/46 L Pulse Oximetry 99 98 97 03/30/21 08:00 03/30/21 09:27 Temperature 96.9 F L Pulse Rate 74 Respiratory Rate 16 Blood Pressure 91/42 L Pulse Oximetry 99 94 Intake/Output Intake/Output: Intake & Output 03/27/21 03/28/21 03/29/21 03/30/21 23:59 23:59 23:59 23:59 Intake Total 1000 2000 Output Total 75 250 Balance 925 1750 Meds/Results Medications: Active Medications Generic Name Dose Route Start Last Admin Trade Name Freq PRN Reason Stop Dose Admin Albuterol 1 puff 03/30/21 02:34 Albuterol Sulfate (*Sp) Aerosol 1 Puff INHALATION Q4H PRN Shortness Of Breath Calcium Carbonate 500 mg 03/30/21 09:00 03/30/21 08:31 Calcium/Vitamin D 500 Mg Tablet PO 500 mg BID MINAL Administration Fish Oil 1 gm
[2021-03-30 15:03] VITALS: BP 88/42; PULSE 82; RESP 16; TEMP 36.2; O2SAT 95
[2021-03-30] MEDS: TRIAMCINOLONE ACET 0.1% CREAM 15 GM TUBE 1 APPLIC TOPICAL (20:10)
[2021-03-30] MEDS: HEPARIN SODIUM 5,000 UNITS/ML VIAL 5000 UNITS SUB-Q (20:10)
[2021-03-30 23:53] VITALS: BP 102/56; PULSE 83; RESP 16; TEMP 36.6; O2SAT 94
[2021-03-31] MEDS: SODIUM CHLORIDE 0.9% IV 1,000 ML 125 ML IV CONT ×3 (01:47→17:29)
[2021-03-31] MEDS: LEVOTHYROXINE SODIUM 100 MCG TABLET 200 MCG PO (06:05)
[2021-03-31 06:12] LABS: Hematocrit 35.2 % (37.0-47.0); Hemoglobin 12.7 g/dL (12.0-15.0); Mean Corpuscular HGB Conc 36.1 g/dl (32-36); Mean Corpuscular Hemoglobin 34.3 pg (26-34); Mean Corpuscular Volume 95.1 fl (80-100); Mean Platelet Volume 10.1 fl (7.4-10.4); Platelet Count Result 435 k/mm3 (150-375); Red Cell Distribution Width 15.5 % (11.5-14.5); White Blood Count 10.1 K/mm3 (4.5-10.0)
[2021-03-31 06:35] LABS: Albumin Level 2.7 g/dL (3.5-5.1); Anion Gap 10 mmol/L (8-16); Blood Urea Nitrogen 26 mg/dL (7-17); Calcium 8.3 mg/dL (8.4-10.2); Carbon Dioxide 20 mmol/L (22-30); Chloride 111 mmol/L (98-107); Estimated CRCL calculation 22 ml/min; Estimated Glomerular Filt Rate 23; Glucose 84 mg/dL (65-105); Magnesium 1.6 mg/dL (1.6-2.3); Phosphorus 3.6 mg/dL (2.5-4.5); Potassium 3.5 mmol/L (3.4-5.0); Sodium 141 mmol/L (137-145)
[2021-03-31 06:39] LABS: Complement C3 103 mg/dL (88-165)
[2021-03-31 08:00] VITALS: BP 111/54; PULSE 80; RESP 20; TEMP 35.9; O2SAT 97
[2021-03-31] MEDS: PSYLLIUM POWDER PACKET 1 PACKET PO ×2 (08:37→17:47)
[2021-03-31] MEDS: ROSUVASTATIN 10 MG TABLET 20 MG PO (08:38)
[2021-03-31] MEDS: ursodioL 300 MG CAPSULE 600 MG BY MOUTH ×2 (08:38→17:47)
[2021-03-31] MEDS: VITAMIN B COMPLEX CAPSULE 1 CAP PO (08:38)
[2021-03-31] MEDS: LANSOPRAZOLE ORAL SUSP 30 MG/10 ML ORAL.SUSP PO (08:39)
[2021-03-31] MEDS: LIOTHYRONINE SODIUM 5 MCG TABLET PO (08:39)
[2021-03-31] MEDS: UMECLIDINIUM/VILANTEROL 62.5-25 MCG ELLIPTA 1 PUFF INHALATION (08:39)
[2021-03-31] MEDS: TRIAMCINOLONE ACET 0.1% CREAM 15 GM TUBE 1 APPLIC TOPICAL ×2 (08:39→20:46)
[2021-03-31] MEDS: FOLIC ACID 1 MG TABLET PO (08:39)
[2021-03-31] MEDS: OMEGA 3 POLYUNSAT FATTY ACIDS 1 GM CAP PO (08:39)
--- NOTE | 2021-03-31 09:01 | PM.IMPN ---
Progress Note: A&P Assessment and Plan (1) SHELDON (acute kidney injury): Code(s): N17.9 - Acute kidney failure, unspecified Status: Acute Assessment and Plan: Likely 2nd to Lasix and Spironolactone but not improving with IV fluids. UA clear except hyaline casts. Chip 22 with FENa 0.2%. Anticardiolipin Ab and mitochondrial Ab positive in November but does have PBC. Renal US normal and renal artery not stenotic. ATN? Dehydration? Hepatorenal? Continue to hold lisinopril, spironolactone and furosemide. Continue IV fluids for now. Appreciate nephrology input. (2) Primary biliary cirrhosis: Code(s): K74.3 - Primary biliary cirrhosis Status: Acute Assessment and Plan: Has developed ascites recently. Has not had paracentesis. Started on Lasix and Spirono 03/12/21. Diuretics on hold. Ascites worsened with the continous IV fluids. today stopped IVFs, want to restart diuresis with oral diuretics, but BPs are marginal. Abdominal ascites present with veins prominent. She sees Dr. Carrizales for her Liver Dsyfxn. Tomorrow, Sheba will need interventional radiology to take a look at her collection of abdominal ascites - may need a paracentesis prior to discharge. (3) Internal and external bleeding hemorrhoids: Code(s): K64.4 - Residual hemorrhoidal skin tags; K64.8 - Other hemorrhoids Status: Acute Assessment and Plan: Stable. Continue localized care with [facility]. no complaints at this time no bleeding noted (4) COPD (chronic obstructive pulmonary disease): Qualifiers: COPD type: unspecified COPD Qualified Code(s): J44.9 - Chronic obstructive pulmonary disease, unspecified Code(s): J44.9 - Chronic obstructive pulmonary disease, unspecified Status: Acute Assessment and Plan: Chronic. No wheezing, no SOB, no dyspnea, no O2 needed. Stable. She no longer smokes. Continue inhalers. (5) Psoriasis: Code(s): L40.9 - Psoriasis, unspecified Status: Acute Assessment and Plan: Chronic. Patient with skin rash bilateral LE and up into the groin. Buttock area also affected. Add Triamcinolone ointment prn (6) DVT prophylaxis: Code(s): Z29.9 - Encounter for prophylactic measures, unspecified Status: Acute Assessment and Plan: Heparin (7) Urinary retention: Code(s): R33.9 - Retention of urine, unspecified Status: Acute Assessment and Plan: May be due to her increased abdominal ascites may need paracentesis to improve bladder sensation Mabry was placed yesterday due to urinary retention. Patient did not have a mabry at home prior to this admission and would really like to have it out today, prior to discharge. do a voiding trial and discontinued her Mabry catheter today. Bladder scan PRn order placed. Consulted Urology Planning for D/C tomorrow if successful. Subjective Date/time seen: 03/31/21 09:01 Interval history: 70yo female with PBC here for SHELDON, Increasing Abdominal Ascites, and Urinary retention. Sheba had CT with contrast ordered but screening labs showed elevated Cr so she was told to come to the ED. She has been receiving IVFs continuously as renal function improving and admitted she still has very poor oral hydration intake. Today - stopped IVFs. Today, abdominal ascites present with veins prominent. Started on Lasix and Spirono 03/12/21. She sees Dr. Carrizales for her Liver Dsyfxn. Tomorrow, Sheba will need interventional radiology to take a look at her collection of abdominal ascites. She may need a paracentesis prior to discharge. Her abdomen appears to be taunt and rounded, and she is admitting to increasing discomfort and distension abdominally today. Discontinued her IVFs, want to do a voiding trial and discontinued her Mabry catheter. Mabry was placed yesterday due to urinary retention. Patient did not have a mabry at home prior to t
--- NOTE | 2021-03-31 10:15 | PM.PNNEP ---
Progress Note: A&P Assessment and Plan (1) SHELDON (acute kidney injury): Code(s): N17.9 - Acute kidney failure, unspecified Status: Acute Assessment and Plan: Sheba has acute kidney injury. Urine electrolytes are pre renal. UA is bland renal ultrasound is normal. her creatinine has fallen to 2.1 off the diuretics. It should return to normal. I think it is okay for her to go home today. 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 If there is any problem with a recurrence of an elevated creatinine I can see her in the office to follow up. Otherwise this can be as needed. (2) Primary biliary cirrhosis: Code(s): K74.3 - Primary biliary cirrhosis Status: Acute Assessment and Plan: The patient has ascites and esophageal varices. (3) Acute hypokalemia: Code(s): E87.6 - Hypokalemia Status: Acute Assessment and Plan: Resolved (4) Benign essential hypertension: Code(s): I10 - Essential (primary) hypertension Status: Acute Assessment and Plan: blood pressure is good at 1:11 a.m. today. (5) Mixed hyperlipidemia: Code(s): E78.2 - Mixed hyperlipidemia Status: Acute Assessment and Plan: she is on Crestor (6) COPD (chronic obstructive pulmonary disease): Qualifiers: COPD type: unspecified COPD Qualified Code(s): J44.9 - Chronic obstructive pulmonary disease, unspecified Code(s): J44.9 - Chronic obstructive pulmonary disease, unspecified Status: Acute Assessment and Plan: she has stopped smoking Subjective Date/time seen: 03/31/21 10:15 Interval history: Sheba is feeling better today. No chest pain. She has her usual shortness of breath with exertion. Juanita feels about the same Review of Systems Cardiovascular: Cardiovascular: Reports no additional cardiovascular complaints Respiratory: Respiratory: Reports no additional respiratory complaints Gastrointestinal: Gastrointestinal: Reports no additional gastrointestinal complaints Genitourinary: Genitourinary: Reports no additional female genitourinary complaints Exam Narrative: Exam Narrative: WDWN in NAD skin no rash head ncat lungs clear but distant breath sounds throughout cor reg no rub abd BS+ nontender and soft and distended ext no edema. Objective Data Vital Signs Vital Signs: Vital Signs - 24 hr 03/30/21 15:03 03/30/21 23:53 03/31/21 08:00 Temperature 36.2 C L 36.6 C 35.9 C L Pulse Rate 82 83 80 Respiratory Rate 16 16 20 Blood Pressure 88/42 L 102/56 L 111/54 L Pulse Oximetry 95 94 97 Intake/Output Intake/Output: Intake & Output 03/28/21 03/29/21 03/30/21 03/31/21 23:59 23:59 23:59 23:59 Intake Total 1000 3240 2100 Output Total 75 250 550 Balance 925 2990 1550 Meds/Results Medications: Active Medications Generic Name Dose Route Start Last Admin Trade Name Freq PRN Reason Stop Dose Admin Albuterol 1 puff 03/30/21 02:34 Albuterol Sulfate (*Sp) Aerosol 1 Puff INHALATION Q4H PRN Shortness Of Breath Calcium Carbonate 500 mg 03/30/21 09:00 03/31/21 08:39 Calcium/Vitamin D 500 Mg Tablet PO 500 mg BID MINAL Administration Fish Oil 1 gm 03/30/21 09:00 03/31/21 08:39 [place] 3 Polyunsat Fatty Acids 1 Gm Cap PO 1 gm DAILY MINAL Administration Folic Acid 1 mg 03/30/21 09:00 03/31/21 08:39 Folic Acid 1 Mg Tablet PO 1 mg DAILY MINAL Administration Heparin Sodium (Porcine) 5,000 units 03/30/21 21:00 03/31/21 08:39 Heparin Sodium 5,000 Units/Ml Vial SUB-Q Not Given Q12HR MINAL Sodium Chloride 1,000 mls @ 125 mls/hr 03/29/21 19:35 03/31/21 09:50 Normal Saline Iv IV CONT 125 mls/hr .Q8H MINAL Administration Lansoprazole 30 mg 03/30/21 09:00 03/31/21 08:39 Lansoprazole Oral Susp 30 Mg/10 Ml Oral.Susp PO 30 mg DAILY MINAL Administration Levothyroxine Sodium 200 mcg 03/30/21 06
--- NOTE | 2021-03-31 15:36 | PC.NURSE ---
Dr. Dempsey called for urology jd edwards consultant, update given to him
[2021-03-31 16:00] VITALS: BP 108/47; PULSE 83; RESP 20; TEMP 36.9; O2SAT 97
--- NOTE | 2021-03-31 17:30 | PC.NURSE ---
spoke with Lisa Renteria, regarding patient c/o increasing abdominal discomfort-related to ascites, orders noted to d/c IV fluids at this time.
[2021-03-31] MEDS: HEPARIN SODIUM 5,000 UNITS/ML VIAL 5000 UNITS SUB-Q (20:46)
[2021-03-31 20:54] VITALS: BP 111/41; PULSE 80; RESP 18; TEMP 36; O2SAT 95
[2021-04-01] MEDS: LEVOTHYROXINE SODIUM 100 MCG TABLET 200 MCG PO (06:04)
[2021-04-01 06:07] VITALS: BP 105/62; PULSE 78; RESP 18; TEMP 36.2; O2SAT 95
[2021-04-01 06:42] LABS: Alanine Aminotransferase 16 U/L (4-35); Albumin Level 2.8 g/dL (3.5-5.1); Alkaline Phosphatase 291 U/L (38-126); Anion Gap 10 mmol/L (8-16); Aspartate Amino Transferase 37 U/L (14-36); Bilirubin,Total 1.6 mg/dL (0.2-1.3); Blood Urea Nitrogen 21 mg/dL (7-17); Calcium 8.5 mg/dL (8.4-10.2); Carbon Dioxide 17 mmol/L (22-30); Chloride 110 mmol/L (98-107); Estimated CRCL calculation 31 ml/min; Estimated Glomerular Filt Rate 35; Glucose 77 mg/dL (65-105); Hematocrit 37.3 % (37.0-47.0); Hemoglobin 12.8 g/dL (12.0-15.0); Mean Corpuscular HGB Conc 34.3 g/dl (32-36); Mean Corpuscular Hemoglobin 33.8 pg (26-34); Mean Corpuscular Volume 98.4 fl (80-100); Mean Platelet Volume 9.9 fl (7.4-10.4); Platelet Count Result 394 k/mm3 (150-375); Potassium 3.3 mmol/L (3.4-5.0); Red Blood Count 3.79 M/mm3 (4.2-5.4); Red Cell Distribution Width 15.6 % (11.5-14.5); Sodium 137 mmol/L (137-145); White Blood Count 9.2 K/mm3 (4.5-10.0)
[2021-04-01 06:43] LABS: INR 1.4; Prothrombin Time 16.5 Seconds (11.1-14.7)
--- NOTE | 2021-04-01 06:50 | WPDURCON ---
Assessment and Plan Assessment and plan (1) Incomplete bladder emptying: Code(s): R33.9 - Retention of urine, unspecified Status: Acute Assessment and Plan: Incomplete bladder emptying is likely result of underlying hypotonic bladder.. Renal ultrasonography around the time of admission fails to show any hydronephrosis. I will start Flomax to enhance bladder emptying. As long as she has subjectively comfortable with her voiding pattern she can be discharged at any point, from our standpoint. She should follow-up within 3-4 weeks in our office. Urology Consult Note HPI Date Seen: 04/01/21 Requesting Physician: Lisa Bustos NP Primary Care Provider: Solo Alcocer MD Consult Narrative Narrative: Sheba Nunez is a 70 year old female, with extensive comorbidities is outlined elsewhere, we are asked to see for intermittent episodes of urinary retention. Patient describes intermittent subjective difficulty voiding with sense of incomplete emptying at home. She denies ever ever having carmen urinary retention requiring catheterization. Since catheter removal yesterday she has voided several times and does not since incomplete bladder emptying currently. She denies a history of gross hematuria recurring urinary tract infections. Review of Systems Cardiovascular: Cardiovascular: Denies chest pain, Denies lightheadedness, Denies palpitations and Denies dyspnea Respiratory: Respiratory: Denies dyspnea Gastrointestinal: Gastrointestinal: Denies diarrhea, Denies nausea and Denies vomiting Genitourinary: Genitourinary: Denies hematuria and Denies dysuria Endocrine: Endocrine: Denies palpitations PMF Past Medical History Medical History Allergies OSCAR positive (~09/2020) Ascites Asthma Benign essential hypertension BMI 28.0-28.9,adult BMI 29.0-29.9,adult BMI 31.0-31.9,adult COPD (chronic obstructive pulmonary disease) KELLER (dyspnea on exertion) Encounter for Medicare annual wellness exam Encounter for routine adult health examination without abnormal findings Follow up H/O gastroesophageal reflux (GERD) Hemorrhoid Hypothyroidism Low back pain Mitral valve disease Mixed hyperlipidemia On [facility] drug therapy Personal history of nicotine dependence Psoriasis Psoriasis with arthropathy Umbilical hernia Surgical History Surgical History H/O tubal ligation History of colonoscopy History of mandibular surgery Family History Family History Father Cerebrovascular accident Family history of heart disease in male family member before age 55 Family history of cardiovascular disease Social History Social History Smoking packs per day: 1.5 Smoking cigarettes per day: 30.0 Years smoked: 50 Smoking pack-years: 75.00 Smoking status: Former smoker Tobacco type: cigarettes Second hand tobacco smoke exposure: Yes Smoking end date: 08/21/18 Alcohol intake: never Drinks per week: 5 Substance use: never Substance use type: does not use Spiritual care concerns: No Meds Home Medications and Allergies Home Medications Medication Instructions Recorded Confirmed Type calcium carbonate 600 mg(1,500 1 tablet PO BID 08/26/19 03/29/21 History mg)-vitamin D3 800 unit chewable tablet folic acid 1 mg tablet 1 mg PO DAILY 08/26/19 03/29/21 History albuterol sulfate 90 mcg/actuation 1 inhalation INHALATION Q4H PRN 02/20/20 03/29/21 History aerosol inhaler omega 1-syd-mmc-fish oil 1,200 mg 1 cap PO DAILY 09/04/20 03/29/21 History (144 mg-216 mg) capsule vitamin B complex 1 tablet PO DAILY 11/26/20 03/29/21 History liothyronine 5 mcg tablet 5 mcg PO DAILY #90 tablet 12/04/20 03/29/21 Rx lisinopril 10 1 tablet PO DAILY #90 tablet 12/04/20 03/29/21
[2021-04-01] MEDS: UMECLIDINIUM/VILANTEROL 62.5-25 MCG ELLIPTA 1 PUFF INHALATION (08:01)
[2021-04-01] MEDS: PSYLLIUM POWDER PACKET 1 PACKET PO (09:03)
[2021-04-01] MEDS: TAMSULOSIN HCL 0.4 MG CAPSULE PO (09:04)
[2021-04-01] MEDS: ursodioL 300 MG CAPSULE 600 MG BY MOUTH (09:04)
[2021-04-01] MEDS: LANSOPRAZOLE ORAL SUSP 30 MG/10 ML ORAL.SUSP PO (09:04)
[2021-04-01] MEDS: VITAMIN B COMPLEX CAPSULE 1 CAP PO (09:05)
[2021-04-01] MEDS: OMEGA 3 POLYUNSAT FATTY ACIDS 1 GM CAP PO (09:05)
[2021-04-01] MEDS: LIOTHYRONINE SODIUM 5 MCG TABLET PO (09:05)
[2021-04-01] MEDS: HEPARIN SODIUM 5,000 UNITS/ML VIAL 5000 UNITS SUB-Q (09:06)
[2021-04-01] MEDS: ROSUVASTATIN 10 MG TABLET 20 MG PO (09:06)
[2021-04-01] MEDS: FOLIC ACID 1 MG TABLET PO (09:06)
[2021-04-01] MEDS: TRIAMCINOLONE ACET 0.1% CREAM 15 GM TUBE 1 APPLIC TOPICAL (09:08)
--- NOTE | 2021-04-01 12:29 | PM.DS ---
DS: Admitting Diagnosis Admitting Diagnosis Admitting Diagnosis: Abnormal kidney function DS: Discharge Diagnosis Discharge Diagnosis (1) SHELDON (acute kidney injury): Code(s): N17.9 - Acute kidney failure, unspecified Status: Acute Assessment and Plan: Patient was scheduled for CT with contrast but pre-procedures labs showed SHELDON. Likely 2nd to Lasix and Spironolactone that had been started recently. UA clear except 20-29 hyaline casts. Chip 22 with FENa 0.2%. Anticardiolipin Ab and mitochondrial Ab positive in November but does have PBC. Renal US normal and renal artery not stenotic. Most likely dehydration but can not exclude hepatorenal Lisinopril, spironolactone and furosemide were held. She was started on IV fluids. Nephrology followed along. (2) Primary biliary cirrhosis: Code(s): K74.3 - Primary biliary cirrhosis Status: Acute Assessment and Plan: Patient has a hx of PBC and is followed by GI. She was doing well but has developed ascites more recently. Has not had paracentesis and she states the GI doctor has been trying to hold off on performing this procedure. Diuretics were placed on hold on admission. Will have patient follow up with her GI doctor after discharge (3) Urinary retention: Code(s): R33.9 - Retention of urine, unspecified Status: Acute Assessment and Plan: Patient noted to have urine retention possibly. Bladder US could have picked up ascites fluid. Prater was placed. Urology consulted. Flomax started. We did a voiding trial and were able to discontinue her Prater catheter successfully. (4) Internal and external bleeding hemorrhoids: Code(s): K64.4 - Residual hemorrhoidal skin tags; K64.8 - Other hemorrhoids Status: Acute Assessment and Plan: Patient with chronic hemorrhoids. We treated with localized care with Elder De La [facility]. (5) COPD (chronic obstructive pulmonary disease): Qualifiers: COPD type: unspecified COPD Qualified Code(s): J44.9 - Chronic obstructive pulmonary disease, unspecified Code(s): J44.9 - Chronic obstructive pulmonary disease, unspecified Status: Acute Assessment and Plan: Patient with chronic COPD. She no longer smokes. We continued her inhalers. Some intermittent wheezing appreciated but no complaints of SOB or cough. (6) Psoriasis: Code(s): L40.9 - Psoriasis, unspecified Status: Acute Assessment and Plan: Patient with chronic psoriasis. Patient with skin rash bilateral LE and up into the groin. Buttock area also affected. We had Triamcinolone cream prn available. DS: Summary Hospital Course Reason for hospitalization: 70yo female with PBC presents with SHELDON found on routine testing. Please see H&P for details. Hospital Course: Please see above for details of hospital course Status at Discharge Cognitive/behavioral status at discharge: Stable Time Spent with Patient Time attestation: Total time spent providing and/or coordinating discharge services: 36 minutes Time spent: Greater than 30 minutes Exam Narrative: Exam Narrative: AF 97.1 105/62 78 18 95%ra Gen - NARD Chest - CTA bilaterally, nml RR CV - RRR S1/S2 Abd -Protuberant. +BS. Nontender. Ext - No pedal edema. Psych - normal mood Skin - small, scattered dry crusted lesions bilateral LE DS: Data Data Completed and Pending Labs on day of discharge: Labs from last 24 hours 04/01/21 04/01/21 04/01/21 05:38 05:38 05:38 WBC 9.2 RBC 3.79 L Hgb 12.8 Hct 37.3 MCV 98.4 MCH 33.8 MCHC 34.3 RDW 15.6 H Plt Count 394 H MPV 9.9 PT 16.5 H INR 1.4 Sodium 137 Potassium 3.3 L Chloride 110 H Carbon Dioxide 17 L Anion Gap 10 BUN 21 H Creatinine 1.50 H Estim Creat Clear Calc 31 Estimated GFR 35 L Glucose 77 Calcium 8.5 Total Bilirubin 1.6 H AST 37 H ALT 16 Alkaline
[2021-04-03 10:52] LABS: Anti Nuclear Antibody Pattern Nuclear, Speckled; Anti Nuclear Antibody Titer >=1:1280 (Negative)
[2021-04-04 04:47] LABS: Calcium/Creatinine Ratio, Ur 2 mg/g creat (10-320); Urine Calcium, Random 0.3 mg/dL (***); Urine Creatinine, Random 163 mg/dL (20-275)
== END 2021-04-01 14:00 | disposition home or self-care (01) | DRG 684 ==
LOC: ANHED 19:40 → ANH3MED 20:15
PROVIDERS: Emergency Medicine; Internal Medicine; Admitting Provider Internal Medicine; Emergency Provider Emergency Medicine; PCP Internal Medicine; Visit Provider Nurse Practitioner
DX: N17.9 Acute kidney failure, unspecified (principal); E87.6 Hypokalemia; K74.3 Primary biliary cirrhosis; J44.9 Chronic obstructive pulmonary disease, unspecified; K64.4 Residual hemorrhoidal skin tags; K64.8 Other hemorrhoids; I10 Essential (primary) hypertension; E78.5 Hyperlipidemia, unspecified; L40.9 Psoriasis, unspecified; N31.2 Flaccid neuropathic bladder, not elsewhere classified
CPT/HCPCS: 36415; 51701; 76775; 80048; 80053; 80069; 81001; 82310; 82570; 83690; 83735; 84300; 85025; 85027; 85610; 86038; 86039; 86160; 93976; 94640; 96360; 96361; 99285; A9270; G0378; J1644; J7030

== ENCOUNTER 2021-04-18 10:56 | Outpatient (CLI) | payer MEDICARE, BC, SELFPAY ==
[2021-04-18 12:27] LABS: Thyroid Stimulating Hormone 0.498 uIU/mL (0.465-4.680)
[2021-04-18 13:04] LABS: Free T4 Free Thyroxine 3.58 ng/mL (0.78-2.19)
== END 2021-04-18 10:57 | disposition home or self-care (01) ==
LOC: ANHLAB 11:02
PROVIDERS: PCP Internal Medicine; Visit Provider Internal Medicine
DX: E03.9 Hypothyroidism, unspecified (principal)
CPT/HCPCS: 36415; 84439; 84443; 84481

== ENCOUNTER 2021-05-20 11:37 | Outpatient (CLI) | payer MEDICARE, BC, SELFPAY ==
[2021-05-20 13:24] LABS: Free T4 Free Thyroxine 2.12 ng/mL (0.78-2.19)
[2021-05-22 12:22] LABS: Triiodothyronine T3 Free 2.1 pg/mL (2.3-4.2)
== END 2021-05-20 11:38 | disposition home or self-care (01) ==
PROVIDERS: PCP Internal Medicine; Visit Provider Internal Medicine
DX: E03.9 Hypothyroidism, unspecified (principal)
CPT/HCPCS: 36415; 84439; 84443; 84481

== ENCOUNTER 2021-05-21 12:16 | Inpatient (IN) | payer MEDICARE, BC, SELFPAY ==
--- NOTE | ~2021-05-21 | US_ITS ---
EXAMINATION: US paracentesis abd w/image DATE: 05/21/2021 15:49 INDICATION: Ascites. TECHNIQUE: The procedure and its risks and benefits were discussed with the patient. Potential risks discussed included bleeding and infection. The skin was prepped and draped in sterile fashion. 1% lid ocaine was used for local anesthesia. Under ultrasound guidance, a 5 Fr catheter with trochar was adv anced into the ascites in the left lower quadrant. Fluid was aspirated into vacuum bottles. The evelina ter was removed, and a dressing was applied. There were no immediate complications. FINDINGS: Ultrasound images demonstrate ascites and the catheter within the fluid. IMPRESSION: 1. Successful ultrasound-guided paracentesis yielding 5000 mL of clear yellow fluid. Reviewed, dictated and finalized at location A.
--- NOTE | ~2021-05-21 | US_ITS ---
EXAMINATION: US venous doppler [facility] DATE: 05/22/2021 10:11 INDICATION: Bilateral lower limb edema TECHNIQUE: Sage scale images without and with compression and Doppler images of the bilateral lower e xtremity veins were obtained. COMPARISON: None FINDINGS: The right common femoral vein, profunda femoral vein, femoral vein, popliteal vein, peroneal trunk, p osterior tibial veins, and greater saphenous vein are patent. The left common femoral vein, profunda femoral vein, femoral vein, popliteal vein, peroneal trunk, po sterior tibial veins, and greater saphenous vein are patent. IMPRESSION: 1. Patent bilateral lower extremity veins. No evidence of deep venous thrombosis. Reviewed, dictated and finalized at location A. IMPRESSION: 1. Patent bilateral lower extremity veins. No evidence of deep venous thrombosi s.
--- NOTE | ~2021-05-21 | US_ITS ---
EXAMINATION: US paracentesis abd w/image DATE: 05/24/2021 12:37 INDICATION: Ascites. TECHNIQUE: The procedure and its risks and benefits were discussed with the patient. Potential risks discussed included bleeding and infection. The skin was prepped and draped in sterile fashion. 1% lid ocaine was used for local anesthesia. Under ultrasound guidance, a 5 Fr catheter with trochar was adv anced into the ascites in the left lower quadrant. Fluid was aspirated into vacuum bottles. The evelina ter was removed, and a dressing was applied. There were no immediate complications. FINDINGS: Ultrasound images demonstrate ascites and the catheter within the fluid. IMPRESSION: 1. Successful ultrasound-guided paracentesis yielding 5000 mL of light yellow fluid. Reviewed, dictated and finalized at location A.
[2021-05-21 12:20] VITALS: BP 120/60; PULSE 95; RESP 19; TEMP 36.8; O2SAT 96
[2021-05-21 13:02] LABS: Basophils Absolute Auto 0.1 K/mm3 (0.0-0.1); Basophils Percent Auto 0.7 % (0.2-1.2); Eosinophils Absolute Auto 0.1 K/mm3 (0-0.3); Eosinophils Percent Auto 0.8 % (0-4.4); Hematocrit 34.5 % (37.0-47.0); Hemoglobin 12.5 g/dL (12.0-15.0); Immature Granulocyte Absolute 0.07 K/mm3 (0.00-0.031); Immature Granulocyte Percent A 0.6 % (0-0.5); Lymphocytes Absolute Auto 1.96 K/mm3 (0.9-3.2); Lymphocytes Percent Auto 17.9 % (18.3-44.2); Mean Corpuscular HGB Conc 36.2 g/dl (32-36); Monocytes Absolute Auto 0.9 K/mm3 (0.1-0.6); Monocytes Percent Auto 8.1 % (2.6-8.5); Neutrophils Absolute Auto 7.9 K/mm3 (1.3-6.7); Neutrophils Percent Auto 71.9 % (45.5-73.1); Platelet Count Result 253 k/mm3 (150-375); Red Blood Count 3.79 M/mm3 (4.2-5.4); Red Cell Distribution Width 17.9 % (11.5-14.5); White Blood Count 10.9 K/mm3 (4.5-10.0)
[2021-05-21 13:16] LABS: INR 1.2; Prothrombin Time 15.4 Seconds (11.1-14.7)
[2021-05-21 13:19] LABS: Alanine Aminotransferase 27 U/L (4-35); Albumin Level 3.2 g/dL (3.5-5.1); Alkaline Phosphatase 407 U/L (38-126); Anion Gap 11 mmol/L (8-16); Aspartate Amino Transferase 50 U/L (14-36); Bilirubin,Total 2.6 mg/dL (0.2-1.3); Blood Urea Nitrogen 34 mg/dL (7-17); Calcium 8.6 mg/dL (8.4-10.2); Carbon Dioxide 20 mmol/L (22-30); Chloride 101 mmol/L (98-107); Estimated CRCL calculation 21 ml/min; Estimated Glomerular Filt Rate 28; Glucose 102 mg/dL (65-110); Lipase 1380 U/L (23-300); Potassium 2.5 mmol/L (3.4-5.0); Sodium 132 mmol/L (137-145)
--- NOTE | 2021-05-21 14:00 | ECG_ITS ---
Measurements Intervals [place] Rate: 92 P: 65 RI: 183 QRS: 48 QRSD: 86 T: 0 QT: 366 QTc: 453 Interpretive Statements SINUS RHYTHM LOW QRS VOLTAGE IN LIMB LEADS BORDERLINE ST-T WAVE ABNORMALITY- ANTEROLAT/INF LEADS BASELINE ARTIFACT- III, V1, V3-V6 BORDERLINE ECG Electronically Signed On 05-21-2021 16:37:39 CDT by Gerald Rausch D.O.
--- NOTE | 2021-05-21 14:00 | ED.GENADULT ---
HPI - General Adult General Chief complaint: Unspecified Stated complaint: fluid on abd Time Seen by Provider: 05/21/21 13:38 Source: patient History of Present Illness HPI narrative: Patient is a 70 y/o female complaining of severe abdominal distention starting 1-2 months. She states that she has PBC and she is followed by Dr. Carrizales. She was referred to [facility] and had some medication adjustment was made. She states that she was noted to have elevated creatinine and her diuretics was stopped about 2 months. This may have aggravated her swelling. She also has bilateral leg swelling. Related Data Home Medications Medication Instructions Recorded Confirmed folic acid 1 mg tablet 1 mg PO DAILY 08/26/19 05/21/21 albuterol sulfate 90 mcg/actuation 1 inhalation INHALATION Q4H PRN 02/20/20 05/21/21 aerosol inhaler omega 6-mzg-ueg-fish oil 1,200 mg 1 cap PO DAILY 09/04/20 05/21/21 (144 mg-216 mg) capsule psyllium 1 packet PO BID 03/29/21 05/21/21 witch faith-glycerin (hamamel) 1 pad TOPICAL [id number] PRN 03/29/21 05/21/21 Allergies Allergy/AdvReac Type Severity Reaction Status Date / Time No Known Allergies Allergy Verified 05/21/21 11:30 Review of Systems Constitutional: Constitutional: Denies chills, Denies fever(s), Denies headache(s) and Denies weakness Eyes: Eyes: Denies blurry vision ENT: Denies headache(s) and Denies neck pain Cardiovascular: Cardiovascular: Denies chest pain, Reports leg edema and Denies dyspnea Respiratory: Respiratory: Denies cough and Denies dyspnea Gastrointestinal: Gastrointestinal: Denies abdominal pain, Denies diarrhea, Denies nausea, Denies vomiting and Reports other (abdominal swelling) Genitourinary: Genitourinary: Denies hematuria and Denies dysuria Musculoskeletal: Musculoskeletal: Denies back pain and Denies neck pain Neurologic: Denies headache(s) and Denies weakness [facility] Past Medical History Medical History (Updated 05/21/21 @ 16:51 by Anum Chilel MD) Allergies OSCAR positive (~09/2020) Anasarca Ascites Asthma Benign essential hypertension BMI 28.0-28.9,adult BMI 29.0-29.9,adult BMI 30.0-30.9,adult BMI 31.0-31.9,adult COPD (chronic obstructive pulmonary disease) Creatinine elevation KELLER (dyspnea on exertion) Encounter for Medicare annual wellness exam Encounter for routine adult health examination without abnormal findings Follow up H/O gastroesophageal reflux (GERD) Hemorrhoid Hypothyroidism Low back pain Mitral valve disease Mixed hyperlipidemia On [facility] living drug therapy Personal history of nicotine dependence Psoriasis Psoriasis with arthropathy Umbilical hernia Surgical History Surgical History H/O tubal ligation History of colonoscopy History of mandibular surgery Family History Family History Father Cerebrovascular accident Family history of heart disease in male family member before age 55 Family history of cardiovascular disease Social History Social History Smoking packs per day: 1.5 Smoking cigarettes per day: 30.0 Years smoked: 50 Smoking pack-years: 75.00 Smoking status: Current every day smoker Tobacco type: cigarettes Second hand tobacco smoke exposure: Yes Smoking end date: 08/21/18 Alcohol intake: never Drinks per week: 5 Substance use: never Substance use type: does not use Spiritual care concerns: No Exam Const: General: no acute distress and well developed Orientation/consciousness: oriented to person, oriented to place, oriented to time and patient oriented x3 HENMT: Head: normocephalic Ears: external ears normal General nose exam: Normal external nose present Eyes: General: appearance normal, both eyes and all related structures Conjunctivae: conjunctivae normal Neck: Neck: normal visual inspection and full ROM Chest:
[2021-05-21] MEDS: POTASSIUM CHLORIDE 20 MEQ TABLET 40 MEQ PO (14:08)
[2021-05-21 15:55] VITALS: BP 110/78; PULSE 97; RESP 16; O2SAT 100
[2021-05-21 16:13] LABS: Add Urine Microscopic? YES; Amorphous Sediment Urine Few; Appearance Urine Cloudy (Clear); Bacteria Urine Trace /hpf; Bilirubin Urine Negative (Negative); Blood Urine Negative (Negative); Color Urine Amber (Yellow); Glucose Urine UA Negative (Negative); Hyaline Casts Urine 20-29 /lpf; Ketones Urine Negative (Negative); Leukocyte Esterase Ur Negative LEU/UL (Negative); Mucus Urine Rare /lpf; Nitrate Urine Negative (Negative); Protein Urine 1+ mg/dL (Negative); Specific Grav Ur 1.016 (1.001-1.035); Squamous Epithelial Cell Urine Many /hpf (Few)
--- NOTE | 2021-05-21 17:00 | ADMGEN ---
This patient, Sheba Nunez, was admitted to 2 Medical Room 242-. Patient/family oriented to hospital policies and general routines including ID bracelet, bed and alarms, visiting hours, pain management, procedures, bathroom and other care routines, personal items, smoking policy, room service/diet, and visiting hours. Information on how to activate the Rapid Response Team has been discussed. Patient/Family are encouraged to report perceived risks to care and to ask questions if they do not understand what they are told or what they should do.
[2021-05-21 17:15] VITALS: BP 103/53; PULSE 92; RESP 16; TEMP 36.2; O2SAT 98
[2021-05-21 18:02] LABS: Appearance Peritoneal Fluid Hazy (Clear); Color Peritoneal Fluid Yellow (Colorless); Lymphocytes Peritoneal Fluid 32 %; Macrophages Peritoneal Fluid 56 %; Mesothelial Cells Peritoneal Fluid 3 %; Neutrophils Peritoneal Fluid 9 % (0-25); Nucleated Cells Peritoneal Flu 211 /uL (0-500); RBC Peritoneal Fluid 127 /uL (0-100000); Source Peritoneal Fluid Peritoneal Fluid
[2021-05-21 20:00] VITALS: BP 106/50; PULSE 83; RESP 20; TEMP 36.1; O2SAT 98
[2021-05-21] MEDS: ALBUMIN HUMAN 25% 25 GM/100 ML 200 ML IVPB (20:24)
--- NOTE | 2021-05-21 21:12 | PM.IMHP ---
H&P: HPI History of Present Illness Date/Time: 05/21/21 21:12 this is a 70-year-old female patient who came to the emergency room today with some abdominal distension that she stated started 1-2 months ago. The patient does have chronic liver disease and was seen by Dr. cooper. However he referred her to a physician in [place]. The patient stated that she went to a physician in [place] and was not satisfied with the care. It was a physician at [facility]. Patient had an elevated creatinine and had her diuretic stopped about 2 months ago. And she has increased and bilateral lower leg swelling. Patient's sodium was noted to be 132, potassium 2.5, creatinine 1.8, lipase 1380, 3.2 albumin, total bili room 2.6, AST 50, alkaline phosphatase 407. The patient's abdomen was distended and she was sent for paracentesis. There was a successful ultrasound-guided paracentesis yielding 500 mL of clear yellow fluid. The patient did have a renal ultrasound last month that was read as normal kidneys. No hydronephrosis. Small volume ascites. The patient was given a 40 mEq potassium orally and IV as well. She was also given albumin. The patient is being admitted to observation status on the date of service of 05/21/2021. Chief Complaint: Abdominal distension Review of Systems Review of Systems: All systems reviewed & are unremarkable except as noted in HPI and below Constitutional: Constitutional: Reports as per HPI and Reports no additional constitutional complaints Eyes: Eyes: Reports as per HPI and Reports no additional eye complaints ENT: Reports system reviewed and no additional complaints, except as documented and Reports Normal hearing present Cardiovascular: Cardiovascular: Reports no additional cardiovascular complaints Respiratory: Respiratory: Reports no additional respiratory complaints and Reports no additional respiratory complaints Gastrointestinal: Gastrointestinal: Reports as per HPI and Reports no additional gastrointestinal complaints Musculoskeletal: Musculoskeletal: Reports no additional musculoskeletal complaints Integumentary/Breasts: Skin/Breast: Reports system reviewed and no additional complaints, except as docu and Reports as per HPI Neurologic: Reports system reviewed and no additional complaints, except as documented, Reports as per HPI and Reports Normal hearing present Psychiatric: Psychiatric: Reports no additional psychiatric complaints and Reports as per HPI Endocrine: Endocrine: Reports no additional endocrine complaints Hematologic/Lymphatic: Hematologic/Lymphatic: Reports no additional hematologic/lymphatic complaints Allergic/Immunologic: Allergic/Immunologic: Reports no additional allergic/immunologic complaints PMFSH Past Medical History Medical History (Updated 05/21/21 @ 21:28 by Darling Levin NP) Allergies OSCAR positive (~09/2020) Anasarca Ascites Asthma Benign essential hypertension BMI 28.0-28.9,adult BMI 29.0-29.9,adult BMI 30.0-30.9,adult BMI 31.0-31.9,adult COPD (chronic obstructive pulmonary disease) Creatinine elevation KELLER (dyspnea on exertion) Encounter for Medicare annual wellness exam Encounter for routine adult health examination without abnormal findings Follow up H/O gastroesophageal reflux (GERD) Hemorrhoid Hypothyroidism Low back pain Mitral valve disease Mixed hyperlipidemia On [employer] [facility] drug therapy Personal history of nicotine dependence Psoriasis Psoriasis with arthropathy S/P abdominal paracentesis 5 L drained on 05/21/2020 Umbilical hernia Surgical History Surgical History H/O tubal ligation History of colonoscopy History of mandibular surgery Family History Family History Father Cerebrovascular accident Family history of heart disease in male family member before age 55 Family history of cardiovascular disease Social History
[2021-05-21 21:43] LABS: Ammonia 133 umol/L (9-30)
[2021-05-21 21:44] LABS: Anion Gap 12 mmol/L (8-16); Blood Urea Nitrogen 37 mg/dL (7-17); Calcium 8.1 mg/dL (8.4-10.2); Carbon Dioxide 21 mmol/L (22-30); Chloride 98 mmol/L (98-107); Estimated CRCL calculation 24 ml/min; Estimated Glomerular Filt Rate 32; Glucose 111 mg/dL (65-110); Magnesium 1.8 mg/dL (1.6-2.3); Potassium 2.9 mmol/L (3.4-5.0); Sodium 131 mmol/L (137-145)
[2021-05-21 22:00] VITALS: BP 106/50; PULSE 83; RESP 20; TEMP 36.1; O2SAT 98
[2021-05-21] MEDS: ursodioL 300 MG CAPSULE 600 MG BY MOUTH (22:45)
[2021-05-22] VITALS (10 sets, daily range): BP systolic 91–108; BP diastolic 42–49; PULSE 80–86; RESP 18–24; TEMP 36.8–37.2; O2SAT 96–98
[2021-05-22 05:42] LABS: Basophils Absolute Auto 0.1 K/mm3 (0.0-0.1); Basophils Percent Auto 0.7 % (0.2-1.2); Eosinophils Absolute Auto 0.1 K/mm3 (0-0.3); Eosinophils Percent Auto 1.2 % (0-4.4); Hematocrit 27.5 % (37.0-47.0); Hemoglobin 10.1 g/dL (12.0-15.0); Immature Granulocyte Absolute 0.05 K/mm3 (0.00-0.031); Immature Granulocyte Percent A 0.6 % (0-0.5); Lymphocytes Absolute Auto 1.62 K/mm3 (0.9-3.2); Lymphocytes Percent Auto 20.1 % (18.3-44.2); Mean Corpuscular HGB Conc 36.7 g/dl (32-36); Mean Corpuscular Hemoglobin 33.1 pg (26-34); Mean Corpuscular Volume 90.2 fl (80-100); Mean Platelet Volume 9.9 fl (7.4-10.4); Monocytes Absolute Auto 0.8 K/mm3 (0.1-0.6); Monocytes Percent Auto 10.4 % (2.6-8.5); Neutrophils Absolute Auto 5.4 K/mm3 (1.3-6.7); Platelet Count Result 174 k/mm3 (150-375); Red Blood Count 3.05 M/mm3 (4.2-5.4); Red Cell Distribution Width 17.3 % (11.5-14.5); White Blood Count 8.1 K/mm3 (4.5-10.0)
[2021-05-22] MEDS: LEVOTHYROXINE SODIUM 150 MCG TABLET PO (06:19)
[2021-05-22 06:39] LABS: Alanine Aminotransferase 20 U/L (4-35); Albumin Level 2.5 g/dL (3.5-5.1); Alkaline Phosphatase 270 U/L (38-126); Anion Gap 12 mmol/L (8-16); Aspartate Amino Transferase 34 U/L (14-36); Bilirubin,Total 2.3 mg/dL (0.2-1.3); Blood Urea Nitrogen 34 mg/dL (7-17); Calcium 8.1 mg/dL (8.4-10.2); Carbon Dioxide 19 mmol/L (22-30); Chloride 100 mmol/L (98-107); Estimated CRCL calculation 26 ml/min; Estimated Glomerular Filt Rate 35; Glucose 81 mg/dL (65-110); Lipase 916 U/L (23-300); Magnesium 1.7 mg/dL (1.6-2.3); Potassium 2.7 mmol/L (3.4-5.0); Sodium 131 mmol/L (137-145)
[2021-05-22 08:11] LABS: Thyroid Stimulating Hormone Reflex 0.984 uIU/mL (0.465-4.68)
[2021-05-22] MEDS: TAMSULOSIN HCL 0.4 MG CAPSULE PO (08:38)
[2021-05-22] MEDS: ROSUVASTATIN 10 MG TABLET 20 MG PO (08:38)
[2021-05-22] MEDS: LIOTHYRONINE SODIUM 5 MCG TABLET PO (08:38)
[2021-05-22] MEDS: FOLIC ACID 1 MG TABLET PO (08:38)
[2021-05-22] MEDS: PSYLLIUM POWDER PACKET 1 PACKET PO ×2 (08:39→16:09)
[2021-05-22] MEDS: LANSOPRAZOLE ORAL SUSP 30 MG/10 ML ORAL.SUSP PO (08:39)
[2021-05-22] MEDS: ursodioL 300 MG CAPSULE 600 MG BY MOUTH ×2 (08:41→16:09)
--- NOTE | 2021-05-22 11:17 | WPDGICN ---
Assessment and Plan Assessment and plan (1) Primary biliary cirrhosis: Code(s): K74.3 - Primary biliary cirrhosis Status: Acute Assessment and Plan: patient with known primary biliary cholangitis. She has had recent deterioration of her liver function. She has been on May for many years. She has new development of ascites. She has been referred to [facility] but is not satisfied with her current physician at [facility]. Plan is to continue supportive care. (2) Ascites: Qualifiers: Ascites type: other type Qualified Code(s): R18.8 - Other ascites Code(s): R18.8 - Other ascites Status: Acute Assessment and Plan: Ascites is felt to be secondary to PBC. Low this is new development since September of this year. She now has renal insufficiency and diuretics have been discontinued. Paracentesis was performed last evening. She may need intermittent paracentesis is to control the ascites. Hopefully we can reapply met diuretics under the direction of the renal service if possible. Low-salt diet is advised. Daily weights encourage. Close monitoring of her creatinine encourage. (3) Chronic renal failure, stage 3 (moderate): Code(s): N18.30 - Chronic kidney disease, stage 3 unspecified Status: Acute Assessment and Plan: Patient appears to have acute on chronic renal insufficiency. It appears to be related to diuretic induced volume contraction. Hopefully hepato- renal syndrome is not present. This will need to be monitored closely. And hopefully we can reapply minute diuretics to control her ascites. (4) History of colon polyps: Code(s): Z86.010 - Personal history of colonic polyps Status: Acute Assessment and Plan: Recent colonoscopy in October revealed no evidence recurrent polyps. GI Consult Note Consult date/time: 05/22/21 11:17 HPI: Sheba Nunez is a 70 year old female I am asked to see because of cirrhosis and ascites. Patient has a long history of primary biliary cholangitis. She has been on May for many years. Recently began to have elevation of her LFTs. She has been seen at [facility] system hepatology and additional workup for her liver was implemented. Since the of the year has begun to have increasing abdominal distention and ascites. During this interval of time she had increasing renal insufficiency. It was felt this may be secondary to contrast dye. Or perhaps diuretic induced azotemia. Patient subsequently had all diuretics discontinued. She underwent abdominal paracentesis at [facility] within the last 2 months. The results of this is not available to me. She was admitted through [facility] last night with increasing ascites. Abdominal paracentesis was performed last evening. Screening colonoscopy was performed by Dr. Marie in October of this year. Review of Systems Review of Systems: All systems reviewed & are unremarkable except as noted in HPI and below PMFSH Past Medical History Medical History (Updated 05/21/21 @ 21:28 by Darling Levin NP) Allergies OSCAR positive (~09/2020) Anasarca Ascites Asthma Benign essential hypertension BMI 28.0-28.9,adult BMI 29.0-29.9,adult BMI 30.0-30.9,adult BMI 31.0-31.9,adult COPD (chronic obstructive pulmonary disease) Creatinine elevation KELLER (dyspnea on exertion) Encounter for Medicare annual wellness exam Encounter for routine adult health examination without abnormal findings Follow up H/O gastroesophageal reflux (GERD) Hemorrhoid Hypothyroidism Low back pain Mitral valve disease Mixed hyperlipidemia On client retention specialist drug therapy Personal history of nicotine dependence Psoriasis Psoriasis with arthropathy S/P abdominal paracentesis 5 L drained on 05/21/2020 Umbilical hernia Surgical History Surgical History H/O tubal ligation History of colonoscopy History of mandibular surger
[2021-05-22 12:25] LABS: Anion Gap 13 mmol/L (8-16); Blood Urea Nitrogen 32 mg/dL (7-17); Carbon Dioxide 18 mmol/L (22-30); Chloride 100 mmol/L (98-107); Estimated CRCL calculation 27 ml/min; Estimated Glomerular Filt Rate 37; Glucose 123 mg/dL (65-110); Magnesium 1.7 mg/dL (1.6-2.3); Potassium 3.1 mmol/L (3.4-5.0); Sodium 131 mmol/L (137-145)
--- NOTE | 2021-05-22 14:07 | PM.IMPN ---
Progress Note: A&P Assessment and Plan (1) Hypokalemia: Code(s): E87.6 - Hypokalemia Status: Acute Assessment and Plan: THE patient was given po potassium and iv potassium. The patient was taken off of her diuretics a couple months ago. Will continue to monitor her BMP and check her magnesium as well. 05/22/21 14:07 Patient is 62-year-old female with long history of primary biliary cholangitis now has developed elevated liver enzymes and has ascites patient had been seen by Dr. Sofie oscar, was referred to mobile paint specialist at the [facility] and workup is in progress, patient presented emergency depart with complaint of abdominal pain and enlarged ascites,on 05/21 patient had a paracentesis and 5 L was removed, patient states feeling much better, patient also history of acute kidney injury as patient had been diuresis to help her with her ascites. recent ultrasound showed normal kidneys, patient is off diuresis, will consult office communication professor further recommended, will continue to monitor patient kidney function. (2) Primary biliary cirrhosis: Code(s): K74.3 - Primary biliary cirrhosis Status: Acute Assessment and Plan: The patient stated that she was referred to a [facility] Dr. however she felt that she was not getting the care that she needed. She stated that he increased her ursodiol but has not followed up with him. The patient stated that she has seen Dr. cooper and would like to follow-up with him. (3) Ascites: Qualifiers: Ascites type: other type Qualified Code(s): R18.8 - Other ascites Code(s): R18.8 - Other ascites Status: Acute Assessment and Plan: The patient was given albumin and taken to ultrasound and 5 L of fluid was drawn off of abdomen. (4) Anasarca: Code(s): R60.1 - Generalized edema Status: Acute Assessment and Plan: The patient's abdomen still continues to be slightly distended and she has 4+ pitting edema to lower extremities. The patient was not restarted on the diuretics at this time as she has low potassium and acute on chronic renal failure. (5) Mixed hyperlipidemia: Code(s): E78.2 - Mixed hyperlipidemia Status: Acute Assessment and Plan: Continue with home medications. It looks like the patient may be on Crestor. (6) Benign essential hypertension: Code(s): I10 - Essential (primary) hypertension Status: Acute Assessment and Plan: Continue with home medications. (7) COPD (chronic obstructive pulmonary disease): Qualifiers: COPD type: unspecified COPD Qualified Code(s): J44.9 - Chronic obstructive pulmonary disease, unspecified Code(s): J44.9 - Chronic obstructive pulmonary disease, unspecified Status: Acute Assessment and Plan: Continue with home medications. Continue with home inhaler (8) Chronic renal failure, stage 3 (moderate): Code(s): N18.30 - Chronic kidney disease, stage 3 unspecified Status: Acute Assessment and Plan: Patient's creatinine is 1.8. Last month it was 1.5 and 2.1. The patient is seen the office communication professor in the past. Also she had a renal ultrasound last month that was negative for any kidney disease. (9) Hypothyroidism: Qualifiers: Hypothyroidism type: unspecified Qualified Code(s): E03.9 - Hypothyroidism, unspecified Code(s): E03.9 - Hypothyroidism, unspecified Status: Acute Assessment and Plan: Check thyroid level continue with her levothyroxine Subjective Date/time seen: 05/22/21 14:07 Patient is 62-year-old female with long history of primary biliary cholangitis now has developed elevated liver enzymes and has ascites patient had been seen by Dr. Sofie oscar, was referred to mobile paint specialist at the [facility] and workup is in progress, patient presented emergency depart with complaint of abdominal pain and enlarged ascites,on 05/21 patient had a paracentesis and 5 L was rem
[2021-05-22] MEDS: POTASSIUM CHLORIDE 20 MEQ TABLET 40 MEQ PO (16:09)
[2021-05-22] MEDS: ONDANSETRON INJ 4 MG/2 ML VIAL IV PUSH (22:30)
[2021-05-23] VITALS (11 sets, daily range): BP systolic 92–104; BP diastolic 43–56; PULSE 80–89; RESP 16–20; TEMP 36.2–37.1; O2SAT 95–99
[2021-05-23] MEDS: LEVOTHYROXINE SODIUM 150 MCG TABLET PO (06:01)
[2021-05-23] MEDS: FOLIC ACID 1 MG TABLET PO (08:22)
[2021-05-23] MEDS: LIOTHYRONINE SODIUM 5 MCG TABLET PO (08:22)
[2021-05-23] MEDS: TAMSULOSIN HCL 0.4 MG CAPSULE PO (08:22)
[2021-05-23] MEDS: ROSUVASTATIN 10 MG TABLET 20 MG PO (08:22)
[2021-05-23] MEDS: PSYLLIUM POWDER PACKET 1 PACKET PO ×2 (08:22→16:47)
[2021-05-23] MEDS: LANSOPRAZOLE ORAL SUSP 30 MG/10 ML ORAL.SUSP PO (08:22)
--- NOTE | 2021-05-23 08:38 | WPDGIPROGNO ---
Progress Note: A&P Assessment and Plan (1) Primary biliary cirrhosis: Code(s): K74.3 - Primary biliary cirrhosis Status: Acute Assessment and Plan: Patient with known primary biliary cholangitis and now with cirrhosis. Plan to continue May on a daily basis. Follow LFTs intermittently. (2) Ascites: Qualifiers: Ascites type: other type Qualified Code(s): R18.8 - Other ascites Code(s): R18.8 - Other ascites Status: Acute Assessment and Plan: Ascites improved after paracentesis. Plan to restart diuretics. Initially with Aldactone. We may add small doses of Lasix. She will need close monitoring of electrolytes. Suggest follow-up BMP in 1 week. From GI perspective she may be discharged on a low-salt diet. Daily weights are encourage she should keep a diarrhea at home. We will see her in office in follow-up in 1 week. Dose of diarrhea will be advanced pending weights and electrolyte results. Subjective Date/time seen: 05/23/21 08:38 Patient feels much better after abdominal paracentesis. Anxious to go home. Tolerating diet. No abdominal pain. Still notes some distention. She has significant pedal edema as well. Review of Systems Review of Systems: All systems reviewed & are unremarkable except as noted in HPI and below Exam Narrative: Physical exam reveals patient be alert. Vital signs are stable. HEENT exam reveals her to be anicteric. Lungs are clear. Heart without murmur. Abdomen distended with shifting dullness. Much improved from presentation. Extremities with 3+ edema. She does have proximal muscle wasting. Objective Data Vital Signs Vital Signs: Vital Signs - 24 hr 05/22/21 10:00 05/22/21 12:00 05/22/21 14:21 Temperature 98.4 F 98.9 F Pulse Rate 82 82 85 Respiratory Rate 20 18 Blood Pressure 98/48 L 97/49 L Pulse Oximetry 98 98 05/22/21 16:00 05/22/21 18:00 05/22/21 20:00 Temperature 98.3 F 98.9 F Pulse Rate 86 85 85 Respiratory Rate 24 H 18 Blood Pressure 91/42 L 108/48 L Pulse Oximetry 98 96 05/23/21 00:00 05/23/21 00:13 05/23/21 04:00 Temperature 97.6 F 97.1 F L Pulse Rate 84 81 81 Respiratory Rate 18 18 Blood Pressure 104/43 L 94/50 L Pulse Oximetry 96 97 Intake/Output Intake/Output: Intake & Output 05/20/21 05/21/21 05/22/21 05/23/21 23:59 23:59 23:59 23:59 Intake Total 240 760 600 Output Total 5000 Balance -4760 760 600 Meds/Results Medications: Active Medications Generic Name Dose Route Start Last Admin Trade Name Freq PRN Reason Stop Dose Admin Folic Acid 1 mg 05/22/21 09:00 05/23/21 08:22 Folic Acid 1 Mg Tablet PO 1 mg DAILY MINAL Administration Lansoprazole 30 mg 05/22/21 08:00 05/23/21 08:22 Lansoprazole Oral Susp 30 Mg/10 Ml Oral.Susp PO 30 mg DAILY@0800 MINAL Administration Levothyroxine Sodium 150 mcg 05/22/21 06:30 05/23/21 06:01 Levothyroxine Sodium 150 Mcg Tablet PO 150 mcg DAILY@0630 MINAL Administration Liothyronine Sodium 5 mcg 05/22/21 09:00 05/23/21 08:22 Liothyronine Sodium 5 Mcg Tablet PO 5 mcg DAILY MINAL Administration Ondansetron HCl 4 mg 05/22/21 22:14 05/22/21 22:30 Ondansetron Inj 4 Mg/2 Ml Vial IV PUSH 4 mg Q6H PRN Administration Nausea And Vomiting Psyllium Hydrophilic Mucilloid 1 packet 05/22/21 09:00 05/23/21 08:22 Psyllium Powder Packet PO 1 packet BID MINAL Administration Rosuvastatin Calcium 20 mg 05/22/21 09:00 05/23/21 08:22 Rosuvastatin 10 Mg Tablet PO 20 mg DAILY MINAL Administration Spironolactone 25 mg 05/23/21 09:00 Spironolactone 25 Mg Tablet PO BID [facility] Tamsulosin HCl 0.4 mg 05/22/21 09:00 05/23/21 08:22 Tamsulosin Hcl 0.4 Mg Capsule PO 0.4 mg QAM MINAL Administration Umeclidinium/Vilanterol 1 puff 05/22/21 08:00 05/23/21 08:20 Umeclidinium/Vilanterol 62.5-25 Mcg Ellipta INHALATION Not Given DAILYRT [facility] Ursodiol 600 mg 05/21/21 2
[2021-05-23] MEDS: UMECLIDINIUM/VILANTEROL 62.5-25 MCG ELLIPTA 1 PUFF INHALATION (09:00)
[2021-05-23] MEDS: ursodioL 300 MG CAPSULE 600 MG BY MOUTH ×2 (09:32→16:47)
[2021-05-23] MEDS: POTASSIUM CHLORIDE 20 MEQ TABLET PO (09:32)
[2021-05-23] MEDS: SPIRONOLACTONE 25 MG TABLET PO ×2 (09:32→16:47)
--- NOTE | 2021-05-23 14:07 | PM.IMPN ---
Progress Note: A&P Assessment and Plan (1) Hypokalemia: Code(s): E87.6 - Hypokalemia Status: Acute Assessment and Plan: THE patient was given po potassium and iv potassium. The patient was taken off of her diuretics a couple months ago. Will continue to monitor her BMP and check her magnesium as well. 05/23/21 14:07 05/22 Patient is 62-year-old female with long history of primary biliary cholangitis now has developed elevated liver enzymes and has ascites patient had been seen by Dr. Sofie oscar, was referred to physical education teacher at the [facility] and workup is in progress, patient presented emergency depart with complaint of abdominal pain and enlarged ascites,on 05/21 patient had a paracentesis and 5 L was removed, patient states feeling much better, patient also history of acute kidney injury as patient had been diuresis to help her with her ascites. recent ultrasound showed normal kidneys, patient is off diuresis, will consult batch unit treater further recommended, will continue to monitor patient kidney function. 05/23 patient remains clinically stable was seen by GI and added spironolactone to help with her diuresing, patient denies any abdominal pain nausea or vomiting fever or chills, continue to monitor will monitor patient kidney function, if remains clinically stable will discharge the patient home tomorrow (2) Primary biliary cirrhosis: Code(s): K74.3 - Primary biliary cirrhosis Status: Acute Assessment and Plan: The patient stated that she was referred to a [facility] DrBeata however she felt that she was not getting the care that she needed. She stated that he increased her ursodiol but has not followed up with him. The patient stated that she has seen Dr. cooper and would like to follow-up with him. (3) Ascites: Qualifiers: Ascites type: other type Qualified Code(s): R18.8 - Other ascites Code(s): R18.8 - Other ascites Status: Acute Assessment and Plan: The patient was given albumin and taken to ultrasound and 5 L of fluid was drawn off of abdomen. (4) Anasarca: Code(s): R60.1 - Generalized edema Status: Acute Assessment and Plan: The patient's abdomen still continues to be slightly distended and she has 4+ pitting edema to lower extremities. The patient was not restarted on the diuretics at this time as she has low potassium and acute on chronic renal failure. (5) Mixed hyperlipidemia: Code(s): E78.2 - Mixed hyperlipidemia Status: Acute Assessment and Plan: Continue with home medications. It looks like the patient may be on Crestor. (6) Benign essential hypertension: Code(s): I10 - Essential (primary) hypertension Status: Acute Assessment and Plan: Continue with home medications. (7) COPD (chronic obstructive pulmonary disease): Qualifiers: COPD type: unspecified COPD Qualified Code(s): J44.9 - Chronic obstructive pulmonary disease, unspecified Code(s): J44.9 - Chronic obstructive pulmonary disease, unspecified Status: Acute Assessment and Plan: Continue with home medications. Continue with home inhaler (8) Chronic renal failure, stage 3 (moderate): Code(s): N18.30 - Chronic kidney disease, stage 3 unspecified Status: Acute Assessment and Plan: Patient's creatinine is 1.8. Last month it was 1.5 and 2.1. The patient is seen the batch unit treater in the past. Also she had a renal ultrasound last month that was negative for any kidney disease. (9) Hypothyroidism: Qualifiers: Hypothyroidism type: unspecified Qualified Code(s): E03.9 - Hypothyroidism, unspecified Code(s): E03.9 - Hypothyroidism, unspecified Status: Acute Assessment and Plan: Check thyroid level continue with her levothyroxine Subjective Date/time seen: 05/23/21 14:07 05/22 Patient is 62-year-old female with long history of primary biliary cholangitis
[2021-05-23 14:49] LABS: Total Protein Peritoneal Fluid <3.0 g/dL
[2021-05-24] VITALS: BP 99/50; PULSE 83; PULSE 85; RESP 16; TEMP 36.8; O2SAT 95
[2021-05-24 04:00] VITALS: BP 99/52; PULSE 76; PULSE 85; RESP 16; TEMP 36.3; O2SAT 97
[2021-05-24] MEDS: LEVOTHYROXINE SODIUM 150 MCG TABLET PO (06:03)
[2021-05-24 06:54] LABS: Hematocrit 30.4 % (37.0-47.0); Mean Corpuscular HGB Conc 36.2 g/dl (32-36); Mean Corpuscular Volume 93.8 fl (80-100); Platelet Count Result 185 k/mm3 (150-375); Red Blood Count 3.24 M/mm3 (4.2-5.4); Red Cell Distribution Width 18.2 % (11.5-14.5); White Blood Count 8.8 K/mm3 (4.5-10.0)
[2021-05-24 07:05] LABS: Alanine Aminotransferase 22 U/L (4-35); Albumin Level 2.6 g/dL (3.5-5.1); Alkaline Phosphatase 291 U/L (38-126); Anion Gap 7 mmol/L (8-16); Aspartate Amino Transferase 41 U/L (14-36); Bilirubin,Total 2.6 mg/dL (0.2-1.3); Blood Urea Nitrogen 31 mg/dL (7-17); Calcium 8.3 mg/dL (8.4-10.2); Carbon Dioxide 20 mmol/L (22-30); Chloride 107 mmol/L (98-107); Estimated CRCL calculation 33 ml/min; Estimated Glomerular Filt Rate 37; Glucose 99 mg/dL (65-110); Magnesium 1.6 mg/dL (1.6-2.3); Potassium 3.9 mmol/L (3.4-5.0); Sodium 134 mmol/L (137-145)
[2021-05-24 08:00] VITALS: PULSE 82
[2021-05-24] MEDS: PSYLLIUM POWDER PACKET 1 PACKET PO (08:40)
[2021-05-24] MEDS: ursodioL 300 MG CAPSULE 600 MG BY MOUTH (08:40)
[2021-05-24] MEDS: FOLIC ACID 1 MG TABLET PO (08:40)
[2021-05-24] MEDS: TAMSULOSIN HCL 0.4 MG CAPSULE PO (08:40)
[2021-05-24] MEDS: ROSUVASTATIN 10 MG TABLET 20 MG PO (08:40)
[2021-05-24] MEDS: SPIRONOLACTONE 25 MG TABLET PO (08:40)
[2021-05-24] MEDS: LIOTHYRONINE SODIUM 5 MCG TABLET PO (08:40)
[2021-05-24] MEDS: LANSOPRAZOLE ORAL SUSP 30 MG/10 ML ORAL.SUSP PO (08:42)
--- NOTE | 2021-05-24 09:02 | WPDGIPROGNO ---
Progress Note: A&P Assessment and Plan (1) Primary biliary cirrhosis: Code(s): K74.3 - Primary biliary cirrhosis Status: Acute Assessment and Plan: Patient with primary biliary cholangitis now with cirrhosis. Plan is to continue May after discharge. We will need to treat cirrhosis symptomatically.. Low-salt diet is advised. We will ask patient follow-up in the office in 1 month. Follow-up electrolytes in a week. (2) Ascites: Qualifiers: Ascites type: other type Qualified Code(s): R18.8 - Other ascites Code(s): R18.8 - Other ascites Status: Acute Assessment and Plan: Patient's renal function is improved. Now on Aldactone. We will gradually give small amounts of diuretics. Electrolytes will need to be monitored routinely. Initially 1 week after discharge. Patient should remain on a low-salt diet. Encouraged to keep a diary with daily weights. (3) Hypokalemia: Code(s): E87.6 - Hypokalemia Status: Acute Assessment and Plan: Potassium level improved. Plan to monitor with frequent electrolytes after discharge. (4) Chronic renal failure, stage 3 (moderate): Code(s): N18.30 - Chronic kidney disease, stage 3 unspecified Status: Acute Assessment and Plan: Patient with a history of renal insufficiency. Likely diuretic induced. We will need to monitor her closely after discharge. Subjective Date/time seen: 05/24/21 09:02 Patient is alert and comfortable this morning. She reports no bleeding tolerating diet without difficulty. Review of Systems Review of Systems: All systems reviewed & are unremarkable except as noted in HPI and below Exam Narrative: Physical exam reveals patient be alert. Comfortable at rest. She may have some mild icterus. Lungs are clear. Heart without murmur. Abdomen is distended with some shifting dullness. No organomegaly evident. No localized tenderness. Extremities reveal proximal muscle wasting some mild edema in the lower extremities. Objective Data Vital Signs Vital Signs: Vital Signs - 24 hr 05/23/21 10:00 05/23/21 12:00 05/23/21 14:00 Temperature 98.5 F 97.9 F Pulse Rate 83 84 89 Respiratory Rate 18 20 Blood Pressure 97/46 L 102/56 L Pulse Oximetry 97 99 05/23/21 16:00 05/23/21 20:00 05/23/21 21:38 Temperature 98.8 F Pulse Rate 87 86 86 Respiratory Rate 16 Blood Pressure 92/50 L Pulse Oximetry 96 05/24/21 00:00 05/24/21 04:00 Temperature 98.3 F 97.4 F L Pulse Rate 85 76 Respiratory Rate 16 16 Blood Pressure 99/50 L 99/52 L Pulse Oximetry 95 97 Intake/Output Intake/Output: Intake & Output 05/21/21 05/22/21 05/23/21 05/24/21 23:59 23:59 23:59 23:59 Intake Total 071 468 7640 170 Output Total 5000 600 Balance -4760 760 1130 170 Meds/Results Medications: Active Medications Generic Name Dose Route Start Last Admin Trade Name Freq PRN Reason Stop Dose Admin Folic Acid 1 mg 05/22/21 09:00 05/24/21 08:40 Folic Acid 1 Mg Tablet PO 1 mg DAILY MINAL Administration Lansoprazole 30 mg 05/22/21 08:00 05/24/21 08:42 Lansoprazole Oral Susp 30 Mg/10 Ml Oral.Susp PO 30 mg DAILY@0800 MINAL Administration Levothyroxine Sodium 150 mcg 05/22/21 06:30 05/24/21 06:03 Levothyroxine Sodium 150 Mcg Tablet PO 150 mcg DAILY@0630 MINAL Administration Liothyronine Sodium 5 mcg 05/22/21 09:00 05/24/21 08:40 Liothyronine Sodium 5 Mcg Tablet PO 5 mcg DAILY MINAL Administration Ondansetron HCl 4 mg 05/22/21 22:14 05/22/21 22:30 Ondansetron Inj 4 Mg/2 Ml Vial IV PUSH 4 mg Q6H PRN Administration Nausea And Vomiting Psyllium Hydrophilic Mucilloid 1 packet 05/22/21 09:00 05/24/21 08:40 Psyllium Powder Packet PO 1 packet BID MINAL Administration Rosuvastatin Calcium 20 mg 05/22/21 09:00 05/24/21 08:40 Rosuvastatin 10 Mg Tablet PO 20 mg DAILY MINAL Administration Spironolactone 25 mg
[2021-05-24 10:00] VITALS: BP 96/49; PULSE 71; RESP 16; TEMP 36.7; O2SAT 94
[2021-05-24] MEDS: UMECLIDINIUM/VILANTEROL 62.5-25 MCG ELLIPTA 1 PUFF INHALATION (10:16)
[2021-05-24 12:00] VITALS: PULSE 81
--- NOTE | 2021-05-24 12:58 | PM.DS ---
DS: Admitting Diagnosis Admitting Diagnosis Chief Complaint: Abdominal distension DS: Discharge Diagnosis Discharge Diagnosis (1) Hypokalemia: Code(s): E87.6 - Hypokalemia Status: Acute Assessment and Plan: THE patient was given po potassium and iv potassium. The patient was taken off of her diuretics a couple months ago. Will continue to monitor her BMP and check her magnesium as well. 05/23/21 14:07 05/22 Patient is 62-year-old female with long history of primary biliary cholangitis now has developed elevated liver enzymes and has ascites patient had been seen by Dr. Sofie oscar, was referred to integration assistant at the [facility] and workup is in progress, patient presented emergency depart with complaint of abdominal pain and enlarged ascites,on 05/21 patient had a paracentesis and 5 L was removed, patient states feeling much better, patient also history of acute kidney injury as patient had been diuresis to help her with her ascites. recent ultrasound showed normal kidneys, patient is off diuresis, will consult bulldogger further recommended, will continue to monitor patient kidney function. 05/23 patient remains clinically stable was seen by GI and added spironolactone to help with her diuresing, patient denies any abdominal pain nausea or vomiting fever or chills, continue to monitor will monitor patient kidney function, if remains clinically stable will discharge the patient home tomorrow (2) Primary biliary cirrhosis: Code(s): K74.3 - Primary biliary cirrhosis Status: Acute Assessment and Plan: The patient stated that she was referred to a [facility] DrBeata however she felt that she was not getting the care that she needed. She stated that he increased her ursodiol but has not followed up with him. The patient stated that she has seen Dr. cooper and would like to follow-up with him. (3) Ascites: Qualifiers: Ascites type: other type Qualified Code(s): R18.8 - Other ascites Code(s): R18.8 - Other ascites Status: Acute Assessment and Plan: The patient was given albumin and taken to ultrasound and 5 L of fluid was drawn off of abdomen. (4) Anasarca: Code(s): R60.1 - Generalized edema Status: Acute Assessment and Plan: The patient's abdomen still continues to be slightly distended and she has 4+ pitting edema to lower extremities. The patient was not restarted on the diuretics at this time as she has low potassium and acute on chronic renal failure. (5) Mixed hyperlipidemia: Code(s): E78.2 - Mixed hyperlipidemia Status: Acute Assessment and Plan: Continue with home medications. It looks like the patient may be on Crestor. (6) Benign essential hypertension: Code(s): I10 - Essential (primary) hypertension Status: Acute Assessment and Plan: Continue with home medications. (7) COPD (chronic obstructive pulmonary disease): Qualifiers: COPD type: unspecified COPD Qualified Code(s): J44.9 - Chronic obstructive pulmonary disease, unspecified Code(s): J44.9 - Chronic obstructive pulmonary disease, unspecified Status: Acute Assessment and Plan: Continue with home medications. Continue with home inhaler (8) Chronic renal failure, stage 3 (moderate): Code(s): N18.30 - Chronic kidney disease, stage 3 unspecified Status: Acute Assessment and Plan: Patient's creatinine is 1.8. Last month it was 1.5 and 2.1. The patient is seen the bulldogger in the past. Also she had a renal ultrasound last month that was negative for any kidney disease. (9) Hypothyroidism: Qualifiers: Hypothyroidism type: unspecified Qualified Code(s): E03.9 - Hypothyroidism, unspecified Code(s): E03.9 - Hypothyroidism, unspecified Status: Acute Assessment and Plan: Check thyroid level continue with her levothyroxine DS: Summary Hospital Course Reason f
[2021-05-24 14:40] LABS: Albumin Peritoneal Fluid 0.6 g/dL
== END 2021-05-24 14:31 | disposition home or self-care (01) | DRG 433 ==
LOC: ANHED 13:38 → ANH2MED 16:29
PROVIDERS: Emergency Medicine; Nurse Practitioner; Admitting Provider Family Medicine; Emergency Provider Emergency Medicine; PCP Internal Medicine; Visit Provider Family Medicine
DX: K74.3 Primary biliary cirrhosis (principal); R18.8 Other ascites; E87.6 Hypokalemia; N18.30 Chronic kidney disease, stage 3 unspecified; E78.2 Mixed hyperlipidemia; I12.9 Hypertensive chronic kidney disease with stage 1 through stage 4 chronic kidney disease, or unspecified chronic kidney disease; J44.9 Chronic obstructive pulmonary disease, unspecified; E03.9 Hypothyroidism, unspecified; Z79.899 Other long term (current) drug therapy; Z86.010 Personal history of colon polyps; Z87.891 Personal history of nicotine dependence
CPT/HCPCS: 36415; 49083; 80048; 80053; 81001; 82042; 82140; 83690; 83735; 84157; 84439; 84443; 84481; 85025; 85027; 85060; 85610; 87070; 87075; 87086; 87088; 87205; 89051; 93005; 93970; 94640; 96374; 96375; 96376; 99285; A9270; G0378; J2405; J3480; P9047

== ENCOUNTER 2021-05-30 14:25 | Outpatient (NON) | payer MEDICARE, BC, SELFPAY | END 2021-05-30 14:26 | disposition home or self-care (01) | PROVIDERS: PCP Internal Medicine; Visit Provider Internal Medicine Gastroenterology | DX: R19.7 Diarrhea, unspecified (principal) | CPT/HCPCS: 87045; 87324; 87427; 89055 ==

== ENCOUNTER 2021-06-03 15:13 | Outpatient (CLI) | payer MEDICARE, BC, SELFPAY ==
[2021-06-03 16:20] LABS: Potassium 3.6 mmol/L (3.4-5.0)
[2021-06-03 16:22] LABS: Anion Gap 13 mmol/L (8-16); Blood Urea Nitrogen 43 mg/dL (7-17); Calcium 8.8 mg/dL (8.4-10.2); Carbon Dioxide 18 mmol/L (22-30); Chloride 94 mmol/L (98-107); Estimated Glomerular Filt Rate 14; Glucose 110 mg/dL (65-110); Sodium 125 mmol/L (137-145)
== END 2021-06-03 15:14 | disposition home or self-care (01) ==
LOC: ANHLAB 15:18
PROVIDERS: PCP Internal Medicine; Visit Provider Internal Medicine
DX: I10 Essential (primary) hypertension (principal)
CPT/HCPCS: 36415; 80048

== ENCOUNTER 2021-06-19 13:46 | Outpatient (CLI) | payer MEDICARE, BC, SELFPAY ==
[2021-06-19 14:39] LABS: Alanine Aminotransferase 22 U/L (4-35); Alkaline Phosphatase 439 U/L (38-126); Anion Gap 13 mmol/L (8-16); Aspartate Amino Transferase 44 U/L (14-36); Blood Urea Nitrogen 57 mg/dL (7-17); Calcium 8.6 mg/dL (8.4-10.2); Carbon Dioxide 17 mmol/L (22-30); Chloride 99 mmol/L (98-107); Estimated Glomerular Filt Rate 19; Glucose 131 mg/dL (65-110); Potassium 3.1 mmol/L (3.4-5.0); Sodium 129 mmol/L (137-145)
[2021-06-19 14:43] LABS: Ammonia 165 umol/L (9-30)
== END 2021-06-19 13:47 | disposition home or self-care (01) ==
LOC: ANHLAB 13:51
PROVIDERS: PCP Internal Medicine; Visit Provider Internal Medicine Gastroenterology
DX: K72.90 Hepatic failure, unspecified without coma (principal); R18.8 Other ascites; K74.3 Primary biliary cirrhosis
CPT/HCPCS: 36415; 80048; 80076; 82140

== ENCOUNTER 2021-06-21 12:57 | Inpatient (IN) | payer MEDICARE, BC, SELFPAY ==
[2021-06-21] VITALS (12 sets, daily range): BP systolic 99–118; BP diastolic 46–67; PULSE 86–91; RESP 16–20; TEMP 36.4–36.6; O2SAT 96–100; BMI 26.6
--- NOTE | ~2021-06-21 | XR_ITS ---
XR chest 2V DATE: 06/21/2021 14:09 INDICATION: Cough, shortness of breath TECHNIQUE: AP and lateral views COMPARISON: 11/28/2020 CT lung screening FINDINGS: There is bilateral low lung volume with mild atelectasis at the lung bases. Normal heart size. No hilar or mediastinal enlargement. Aortic arch calcification. No pleural effusion or pulmonary vascular congestion or pneumothorax. Bilateral rotator cuff atrophy. Diffuse osteopenia. Scoliosis and degenerative change of the thoracic and lumbar spine. IMPRESSION: Low lung volumes and mild bibasilar atelectasis Reviewed, dictated and finalized at location B.
--- NOTE | ~2021-06-21 | US_ITS ---
EXAMINATION: US abdomen limited DATE: 06/25/2021 10:03 INDICATION: Abnormal liver function tests. TECHNIQUE: Multiple grayscale and Doppler ultrasound images of the abdomen were obtained. COMPARISON: CT abdomen 10/08/2020 FINDINGS: The liver demonstrates coarsened echotexture and surface nodularity, consistent with cirrho sis. There is normal flow in main portal vein. The gallbladder is normal in size and contains sludge. Gallbladder wall thickening is seen, likely secondary to chronic liver disease. The common duct is n ormal and measures 4 mm. There is a moderate volume of ascites. IMPRESSION: 1. Cirrhosis of the liver. 2. Moderate volume of ascites. Reviewed, dictated and finalized at location A.
--- NOTE | ~2021-06-21 | US_ITS ---
EXAMINATION: US paracentesis abd w/image DATE: 06/22/2021 11:47 CDT INDICATION: Ascites TECHNIQUE: Survey imaging of the abdomen was performed. The procedure for ultrasound-guided thoracen tesis and its risk and benefits were discussed with the patient. Risks included but were not limited to pain, bleeding, pneumothorax and infection. The patient verbalized understanding and provided wri tten consent. A time-out was performed to document the patient's name, date of , and site of procedure. The l eft lower abdomen was prepped and draped in usual sterile fashion. 1% lidocaine was used for local a nesthesia. Utilizing ultrasound guidance, a 5 rwandan cather was advanced into pleural fluid. Aspira tion was performed. The patient tolerated procedure without immediate complication. Sterile bandages were applied over t he aspiration site(s).] FINDINGS: 2200 cc of yellowish fluid obtained without complication. IMPRESSION: 1. Successful ultrasound-guided paracentesis. 2200 cc of fluid obtained without complication. Reviewed, dictated and finalized at location A. IMPRESSION: 1. Successful ultrasound-guided paracentesis. 2200 cc of fluid obtained withou t complication.
--- NOTE | ~2021-06-21 | US_ITS ---
EXAMINATION: US paracentesis abd w/image DATE: 06/24/2021 16:41 INDICATION: Ascites. TECHNIQUE: The procedure and its risks, benefits, and alternatives were discussed with the patient. P otential risks discussed included bleeding and infection. The skin was prepped and draped in sterile fashion. 1% lidocaine was used for local anesthesia. Under ultrasound guidance, a 5 Fr catheter with trochar was advanced into the ascites in the left lower quadrant. Fluid was aspirated. The catheter w as removed, and a dressing was applied. There were no immediate complications. FINDINGS: Ultrasound images demonstrate ascites and the catheter within the fluid. IMPRESSION: 1. Successful ultrasound-guided paracentesis yielding 4400 mL of clear, kerri-colored fluid. Reviewed, dictated and finalized at location A. IMPRESSION: 1. Successful ultrasound-guided paracentesis yielding 4400 mL of clear, kerri- colored fluid.
--- NOTE | ~2021-06-21 | US_ITS ---
EXAMINATION: US renal BI DATE: 06/24/2021 16:41 INDICATION: Chronic kidney disease. TECHNIQUE: Multiple ultrasound grayscale images of the kidneys were obtained. COMPARISON: CT abdomen 10/08/2020 FINDINGS: The right kidney measures 9.0 x 3.8 x 4.0 cm. The left kidney measures 9.4 x 4.1 x 4.2 cm. The kidney s demonstrate normal parenchymal echogenicity. There is no hydronephrosis. The bladder is normal. The re is a large volume of ascites. IMPRESSION: 1. Normal kidneys. No hydronephrosis. 2. Large volume of ascites. Reviewed, dictated and finalized at location A.
--- NOTE | ~2021-06-21 | CT_ITS ---
EXAMINATION: CT brain wo [facility] EXAM DATE: 06/21/2021 17:04 INDICATION: Fall, head trauma. TECHNIQUE: Spiral CT of the head was performed without contrast. Axial, coronal and sagittal images were reviewed. The dose-length product (DLP) for this examination was 681.00 mGy-cm. The exposure w as tailored according to patient size, and iterative reconstruction (ASIR) was used as additional dos e reduction technique. There is no prior study for comparison. FINDINGS: There is no acute intraparenchymal hemorrhage. No evidence of intraparenchymal brain mass lesion. No evidence of acute infarction. Please note that initial head CT has limited sensitivity f or small or acute infarctions. There is mild periventricular and subcortical hypodensity, nonspecific but probably related to small vessel ischemic disease. There is moderate prominence of the sulci a nd ventricles related to cerebral atrophy. There is intracranial carotid arteriosclerosis. There a re no extra-axial collections. There is no mass effect or midline shift. The orbits are unremarkabl e. Soft tissue is unremarkable. The visualized sinuses and mastoid air cells are well aerated. IMPRESSION: 1. No acute intracranial findings. 2. Chronic age related findings. Reviewed, dictated and finalized at location A.
[2021-06-21 13:43] LABS: Basophils Absolute Auto 0.1 K/mm3 (0.0-0.1); Basophils Percent Auto 0.3 % (0.2-1.2); Eosinophils Percent Auto 0.2 % (0-4.4); Hematocrit 29.8 % (37.0-47.0); Hemoglobin 10.7 g/dL (12.0-15.0); Immature Granulocyte Absolute 0.09 K/mm3 (0.00-0.031); Immature Granulocyte Percent A 0.6 % (0-0.5); Lymphocytes Absolute Auto 1.78 K/mm3 (0.9-3.2); Lymphocytes Percent Auto 12.4 % (18.3-44.2); Mean Corpuscular HGB Conc 35.9 g/dl (32-36); Mean Corpuscular Hemoglobin 33.3 pg (26-34); Mean Corpuscular Volume 92.8 fl (80-100); Mean Platelet Volume 10.3 fl (7.4-10.4); Neutrophils Absolute Auto 11.4 K/mm3 (1.3-6.7); Neutrophils Percent Auto 79.5 % (45.5-73.1); Platelet Count Result 218 k/mm3 (150-375); Red Blood Count 3.21 M/mm3 (4.2-5.4); White Blood Count 14.3 K/mm3 (4.5-10.0)
[2021-06-21 13:52] LABS: Ammonia 162 umol/L (9-30)
[2021-06-21 13:54] LABS: Alanine Aminotransferase 31 U/L (4-35); Albumin Level 3.1 g/dL (3.5-5.1); Alkaline Phosphatase 425 U/L (38-126); Anion Gap 15 mmol/L (8-16); Aspartate Amino Transferase 62 U/L (14-36); Bilirubin,Total 2.3 mg/dL (0.2-1.3); Blood Urea Nitrogen 63 mg/dL (7-17); Calcium 9.1 mg/dL (8.4-10.2); Carbon Dioxide 16 mmol/L (22-30); Chloride 102 mmol/L (98-107); Estimated CRCL calculation 16 ml/min; Estimated Glomerular Filt Rate 19; Glucose 83 mg/dL (65-110); Lipase 764 U/L (23-300); Potassium 3.8 mmol/L (3.4-5.0); Sodium 133 mmol/L (137-145)
--- NOTE | 2021-06-21 14:01 | ECG_ITS ---
Measurements Intervals [place] Rate: 89 P: 59 MI: 172 QRS: 62 QRSD: 75 T: 47 QT: 362 QTc: 440 Interpretive Statements SINUS RHYTHM CANNOT RULE OUT SEPTAL INFARCT, AGE INDETERMINATE BASELINE ARTIFACT- II, III, AVR, AVL, AVF, V4-V6 ABNORMAL ECG Electronically Signed On 06-21-2021 14:08:33 CDT by Gerald Rausch D.O.
[2021-06-21 14:44] LABS: Add Urine Microscopic? YES; Appearance Urine Clear (Clear); Bacteria Urine Trace /hpf; Bilirubin Urine Negative (Negative); Blood Urine Negative (Negative); Color Urine Amber (Yellow); Glucose Urine UA Negative (Negative); Ketones Urine Negative (Negative); Leukocyte Esterase Ur Negative LEU/UL (Negative); Nitrate Urine Negative (Negative); Protein Urine 1+ mg/dL (Negative); RBC Urine 0-2 /hpf (0-2); Specific Grav Ur 1.016 (1.001-1.035); Squamous Epithelial Cell Urine Rare /hpf (Few); Urobilinogen Urine Negative mg/dL (<2.0); WBC Urine 0-3 /hpf
--- NOTE | 2021-06-21 14:45 | PM.IMHP ---
H&P: HPI History of Present Illness Date/Time: 06/21/21 14:45 Chief Complaint: Found down, confused. Narrative: This is an unfortunate 70-year-old female with primary biliary cholangitis now with cirrhosis and ascites, hypothyroidism, and GERD who presented to the emergency department earlier today via EMS from home after she was found down, confused. The patient is encephalopathic and is not able to provide history and as such all of the following is obtained via a review of her electronic medical records as well as discussions with staff. Her friend and neighbor, Kristi, found her today however. I have not been able to get in touch with her as of yet for further information. There is no documentation as to when the patient was last seen in her normal state of health though she was seen in follow-up by Dr. Carrizales on 06/19/2021 at which time she seemed to be a bit confused with slow mentation. Labs done at that time revealed an elevated ammonia level of 165 and she was prescribed rifaximin; patient had reported 1 to 2 loose stools a day thus she was not started on lactulose. Unfortunately her renal function has worsened over the last several months and her diuretics had to be cut back some though as of 2 days ago she was still taking spironolactone. In any regard, it does not appear that the patient filled her rifaximin according to the external medication list. At the time my evaluation the patient is alert but disoriented and cannot provide me any history; the only words that she said to me during my exam or her 1st name and ?I am cold.? Of note the patient was referred to a paper box cutter at [place] and is my understanding that ?a workup is in process? though other notes have stated that she has decided not to follow-up with them thus I am not certain where we stand on this. Review of Systems Review of Systems: Unable to be assessed accurately given patient's encephalopathy. [facility] Past Medical History Medical History (Updated 06/21/21 @ 21:35 by Brandy Flores PA-C) OSCAR positive (09/2020) Ascites Asthma Benign essential hypertension Chronic obstructive pulmonary disease Cirrhosis of liver with ascites Gastroesophageal reflux disease Hypothyroidism Mixed hyperlipidemia Personal history of nicotine dependence Primary biliary cholangitis Psoriasis with arthropathy Umbilical hernia Surgical History Surgical History (Updated 06/21/21 @ 21:01 by Brandy Flores PA-C) History of colonoscopy History of mandibular surgery History of tubal ligation Family History Family History Father Cerebrovascular accident Family history of heart disease in male family member before age 55 Family history of cardiovascular disease Social History Social History (Updated 06/21/21 @ 21:04 by Brandy Flores PA-C) Social History: The patient lives in her own home in [place]. She is from her 1st and from her 2nd. She has an adult son. 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 1.5 pack a day smoker for nearly 50 years, quit in August 2018. No significant alcohol use. Emergency contact: Kristi Og, friend. Meds Home Medications and Allergies Home Medications Medication Instructions Recorded Confirmed Type folic acid 1 mg tablet 1 mg PO DAILY 08/26/19 06/21/21 History rosuvastatin 20 mg tablet 20 mg PO DAILY #90 tablet 01/08/21 06/21/21 Rx umeclidinium 62.5 mcg-vilanterol 1 inh INHALATION Q24H #3 ea 02/11/21 06/21/21 Rx 25 mcg/actuation powdr for inhalation tamsulosin 0.4 mg PO QAM #30 cap 04/01/21 06/21/21 Rx lansoprazole [Prevacid] 30 mg PO DAILY 05/21/21 06/21/21 History spironolactone 25 mg PO BID #60 tablet 05/24/21 06/21/21 Rx levothyroxine 150 mcg tablet 150 mcg PO DAILY #90 tablet 06/03/21 06/21/21 Rx liothyronine 5 mcg tablet 5 mcg PO DAILY #90 tablet 06/03/21 06/21/21 Rx ursodiol 600 mg PO BID 06/21/21 06/21/21 History Allergies Allergy/
--- NOTE | 2021-06-21 14:49 | ED.AMS ---
HPI - Altered Mental Status General Chief Complaint: Altered Mental Status Stated Complaint: weakness Time Seen by Provider: 06/21/21 13:04 Source: patient Mode of arrival: EMS Limitations: clinical condition History of Present Illness HPI narrative: 70-year-old female Limited history due to confusion Patient has a history of primary biliary cirrhosis She was seen in the office a couple of days ago because of problems with worsening mental status Labs were sent which ultimately supported diagnosis of hepatic encephalopathy including an elevated ammonia level of 165 She had been prescribed rifaximin but it is unclear whether she had started to take it, and had not been prescribed lactulose because she was apparently already having diarrhea Also she apparently had her diuretics curtailed, possibly elsewhere, because it was causing a rise in her creatinine Related Data Home Medications Medication Instructions Recorded Confirmed folic acid 1 mg tablet 1 mg PO DAILY 08/26/19 06/05/21 lansoprazole [Prevacid] 30 mg PO DAILY 05/21/21 06/05/21 Allergies Allergy/AdvReac Type Severity Reaction Status Date / Time No Known Allergies Allergy Verified 06/21/21 13:13 Review of Systems Review of Systems: ROS unobtainable: Yes unobtainable due to medical condition and unobtainable due to mental status Constitutional: Constitutional: Reports weakness Gastrointestinal: Gastrointestinal: Reports diarrhea and Denies vomiting PMFSH Past Medical History Medical History Allergies OSCAR positive (~09/2020) Anasarca Ascites Asthma Benign essential hypertension BMI 27.0-27.9,adult BMI 28.0-28.9,adult BMI 29.0-29.9,adult BMI 30.0-30.9,adult BMI 31.0-31.9,adult COPD (chronic obstructive pulmonary disease) Creatinine elevation KELLER (dyspnea on exertion) Encounter for Medicare annual wellness exam Encounter for routine adult health examination without abnormal findings Follow up H/O gastroesophageal reflux (GERD) Hemorrhoid Hypothyroidism Impacted cerumen of both ears Low back pain Mitral valve disease Mixed hyperlipidemia On manager terminal drug therapy Personal history of nicotine dependence Psoriasis Psoriasis with arthropathy S/P abdominal paracentesis 5 L drained on 05/21/2020 Umbilical hernia Surgical History Surgical History H/O tubal ligation History of colonoscopy History of mandibular surgery Family History Family History Father Cerebrovascular accident Family history of heart disease in male family member before age 55 Family history of cardiovascular disease Social History Social History Social History: The patient has 1 son. The patient is from her 1st and from her 2nd. The patient retired from [employer]. The patient stated that she has not drink for months and months. The patient quit smoking in 2018. The patient continues to be a full code and does not have a durable power litigation attorney associate for healthcare. The patient lives home alone. Smoking packs per day: 1.5 Smoking cigarettes per day: 30.0 Years smoked: 50 Smoking pack-years: 75.00 Smoking status: Former smoker Tobacco type: cigarettes Second hand tobacco smoke exposure: Yes Smoking end date: 09/04/18 Alcohol intake: never Drinks per week: 5 Substance use: never Substance use type: does not use Spiritual care concerns: No Exam Const: General: cooperative, confusion and ill appearing Nutritional Appearance: thin Limitations: altered mental status HENMT: Head: normal to inspection, normocephalic, atraumatic, no contusions, no hematomas and no lacerations Ears: external ears normal General nose exam: no epistaxis Mouth: Yes dry mucous membranes Eyes:
[2021-06-21 16:19] LABS: Appearance Peritoneal Fluid Hazy (Clear); Color Peritoneal Fluid Yellow (Colorless); Neutrophils Peritoneal Fluid 26 % (0-25); Nucleated Cells Peritoneal Flu 155 /uL (0-500); RBC Peritoneal Fluid 427 /uL (0-100000); Source Peritoneal Fluid Peritoneal Fluid
[2021-06-21 16:20] LABS: Lymphocytes Peritoneal Fluid 13 %; Macrophages Peritoneal Fluid 22 %; Mesothelial Cells Peritoneal Fluid 2 %; Monocytes Peritoneal Fluid 37 %
--- NOTE | 2021-06-21 18:33 | ADMGEN ---
This patient, Sheba Nunez, was admitted to Medical Room 343-01. Patient/family oriented to hospital policies and general routines including ID bracelet, bed and alarms, visiting hours, pain management, procedures, bathroom and other care routines, personal items, smoking policy, room service/diet, and visiting hours. Information on how to activate the Rapid Response Team has been discussed. Patient/Family are encouraged to report perceived risks to care and to ask questions if they do not understand what they are told or what they should do.
[2021-06-21] MEDS: LACTATED RINGERS 1,000 ML 75 ML IV CONT (18:42)
[2021-06-21 21:50] LABS: INR 1.4; Prothrombin Time 17.2 Seconds (11.1-14.7)
[2021-06-21 21:51] LABS: Partial Thromboplastin Time 37.1 SECONDS (22.3-36.8)
[2021-06-21 21:54] LABS: Lactic Acid Reflex 1.4 mmol/L (0.7-2.1)
[2021-06-21 21:54] LABS: Creatine Kinase 87 U/L (30-135)
[2021-06-21 21:58] LABS: Anion Gap 14 mmol/L (8-16); Blood Urea Nitrogen 65 mg/dL (7-17); CRP 7.1 mg/dL (<1.0); Carbon Dioxide 18 mmol/L (22-30); Chloride 102 mmol/L (98-107); Estimated CRCL calculation 18 ml/min; Estimated Glomerular Filt Rate 18; Glucose 71 mg/dL (65-110); Magnesium 1.8 mg/dL (1.6-2.3); Potassium 3.6 mmol/L (3.4-5.0); Sodium 134 mmol/L (137-145)
[2021-06-21 22:01] LABS: Immature Reticulocyte Fraction 13.5 % (3.0-15.9); Reticulocyte Hemoglobin Conten 40.3 pg (28.2-35.7); Reticulocyte Percent 1.68 % (0.7-4.3); Reticulocytes Absolute 0.05 B/L (32.2-175.7)
[2021-06-21 22:11] LABS: Lactate Dehydrogenase 652 U/L (313-618)
[2021-06-21 22:24] LABS: Iron 112 ug/dL (37-170)
[2021-06-21 22:33] LABS: Percent Iron Saturation 79 % (20-50)
[2021-06-21 22:37] LABS: Alveolar/Arterial O2 Gradient 54.6 mmHg; Carboxyhemoglobin 0.3 % THb (0-2.0); Fractional Inspired Oxygen 21 %; HCO3 ABG 16.5 mEq/l (22.0-26.0); Methemoglobin ABG 0.3 %THb (0-1.5); Oxygen Content ABG 12.4 %vol (16.0-22.0); PO2 ABG 70.3 mmHg (80.0-100.0); PO2 FiO2 Ratio Arterial Blood 3.35 %; Reduced Hemoglobin 6.4 %THb (0-5.0); Total Hemoglobin 9.4 g/dL (12.0-18.0)
[2021-06-21 22:45] LABS: Device ROOM AIR; Modified Allen's Test Pass; PCO2 ABG 20.7 mmHg (35.0-45.0); Site Drawn RIGHT RADIAL
[2021-06-21] MEDS: rifAXIMin 550 MG TABLET PO (22:56)
[2021-06-21] MEDS: LACTULOSE ENEMA 200 GM/1,000 ML ENEMA RECTAL (22:57)
[2021-06-21 23:34] LABS: Folic Acid 9.2 ng/mL (2.76->20); Vitamin B12 > 1000.0 pg/mL (239-931)
[2021-06-21 23:45] LABS: Free T4 Free Thyroxine Reflex 1.52 ng/dL (0.78-2.19)
[2021-06-21 23:54] LABS: Ferritin > 2000.00 ng/mL (11.1-264)
[2021-06-22 00:36] LABS: Total Triiodothyronine (T3) 0.46 NG/ML (0.97-1.69)
[2021-06-22 05:11] VITALS: BP 100/48; PULSE 80; RESP 17; TEMP 36.5; O2SAT 99
[2021-06-22 06:03] LABS: Ammonia 98 umol/L (9-30)
[2021-06-22 06:07] LABS: Basophils Percent Auto 0.4 % (0.2-1.2); Eosinophils Absolute Auto 0.1 K/mm3 (0-0.3); Eosinophils Percent Auto 1.1 % (0-4.4); Hematocrit 27.7 % (37.0-47.0); Hemoglobin 9.6 g/dL (12.0-15.0); Immature Granulocyte Absolute 0.09 K/mm3 (0.00-0.031); Immature Granulocyte Percent A 0.8 % (0-0.5); Lymphocytes Absolute Auto 2.07 K/mm3 (0.9-3.2); Lymphocytes Percent Auto 18.2 % (18.3-44.2); Mean Corpuscular HGB Conc 34.7 g/dl (32-36); Mean Corpuscular Hemoglobin 33.2 pg (26-34); Mean Corpuscular Volume 95.8 fl (80-100); Mean Platelet Volume 10.3 fl (7.4-10.4); Monocytes Absolute Auto 0.9 K/mm3 (0.1-0.6); Monocytes Percent Auto 7.6 % (2.6-8.5); Neutrophils Absolute Auto 8.2 K/mm3 (1.3-6.7); Neutrophils Percent Auto 71.9 % (45.5-73.1); Platelet Count Result 177 k/mm3 (150-375); Red Blood Count 2.89 M/mm3 (4.2-5.4); Red Cell Distribution Width 20.1 % (11.5-14.5); White Blood Count 11.4 K/mm3 (4.5-10.0)
[2021-06-22 06:18] LABS: INR 1.5; Prothrombin Time 17.7 Seconds (11.1-14.7)
[2021-06-22 06:19] LABS: Alanine Aminotransferase 28 U/L (4-35); Alkaline Phosphatase 368 U/L (38-126); Anion Gap 14 mmol/L (8-16); Aspartate Amino Transferase 53 U/L (14-36); Blood Urea Nitrogen 63 mg/dL (7-17); Calcium 8.9 mg/dL (8.4-10.2); Carbon Dioxide 17 mmol/L (22-30); Chloride 105 mmol/L (98-107); Estimated CRCL calculation 18 ml/min; Estimated Glomerular Filt Rate 18; Glucose 67 mg/dL (65-110); Magnesium 1.9 mg/dL (1.6-2.3); Partial Thromboplastin Time 38.3 SECONDS (22.3-36.8); Potassium 3.5 mmol/L (3.4-5.0); Sodium 136 mmol/L (137-145)
[2021-06-22] MEDS: LEVOTHYROXINE SODIUM 150 MCG TABLET PO (06:39)
[2021-06-22] MEDS: FOLIC ACID 1 MG TABLET PO (12:33)
[2021-06-22] MEDS: LIOTHYRONINE SODIUM 5 MCG TABLET PO (12:33)
[2021-06-22] MEDS: rifAXIMin 550 MG TABLET PO ×2 (12:33→20:28)
[2021-06-22] MEDS: ursodioL 300 MG CAPSULE 600 MG PO ×2 (12:33→18:07)
[2021-06-22] MEDS: TAMSULOSIN HCL 0.4 MG CAPSULE PO (12:33)
--- NOTE | 2021-06-22 13:00 | WPDGICN ---
Assessment and Plan Assessment and plan (1) Decompensated hepatic cirrhosis: Code(s): K72.90 - Hepatic failure, unspecified without coma; K74.60 - Unspecified cirrhosis of liver Status: Acute Assessment and Plan: here with decompensated cirrhosis, recurrent ascites for which had another paracentesis (no SBP) and this time also liver encephalopathy MELD score 23 supportive care, start nutrition support when more awake (2) Primary biliary cholangitis: Code(s): K74.3 - Primary biliary cirrhosis Status: Acute (3) Cirrhosis of liver with ascites: Code(s): K74.60 - Unspecified cirrhosis of liver; R18.8 - Other ascites Status: Acute Assessment and Plan: recent paracentesis will give extra albumin iv given renal failure (4) Acute on chronic renal failure: Code(s): N17.9 - Acute kidney failure, unspecified; N18.9 - Chronic kidney disease, unspecified Status: Acute Assessment and Plan: continue to monitor recent worsening renal failure challenge with iv albumin ? hepatorenal (5) Hepatic encephalopathy: Code(s): K72.90 - Hepatic failure, unspecified without coma Status: Acute Assessment and Plan: now that she is more awake will give lactulose tid by mouth to get 3-4 BM/d, continue with xifaxan GI Consult Note Consult date/time: 06/22/21 13:00 Reason for consult: hepatic encephalopathy, PBC with decompensated cirrhosis HPI: Sheba Nunez is a 70 year old female with history of primary biliary cholangitis on nain now with decompensated cirrhosis and ascites that required previous paracentesis, also worsening renal function who is patient of Dr Carrizales with recent hospitalization last month, she also has been evaluated by hepatology team at [facility] . This time she is admitted the hospital after she was found quite confused and lying down at her home by a friend. She was brought here via EMS from home and history obtained from records. Labs showed elevated ammonia level of 98 (recently started on xifaxan per records), creatinine 2.6 (recent labs 1.8-2.5), inr 1.5, bili 2. She was given xifaxan, also lactulose enema and slightly more responsive today per RN. She is talking and aware that she is at the hospital but still confused. She also just had paracentesis, no SBP. Review of Systems Constitutional: Constitutional: Reports weakness Eyes: Eyes: Reports no additional eye complaints ENT: Reports Normal hearing present Cardiovascular: Cardiovascular: Denies chest pain Respiratory: Respiratory: Denies dyspnea Gastrointestinal: Gastrointestinal: Denies vomiting Genitourinary: Genitourinary: Reports no additional female genitourinary complaints Musculoskeletal: Musculoskeletal: Denies neck pain Integumentary/Breasts: Skin/Breast: Denies dry skin Neurologic: Reports confusion Psychiatric: Psychiatric: Reports confusion [facility] Past Medical History Medical History (Updated 06/22/21 @ 13:17 by Stuart Bear MD) Acute on chronic renal failure OSCAR positive (09/2020) Ascites Asthma Benign essential hypertension Chronic obstructive pulmonary disease Cirrhosis of liver with ascites Decompensated hepatic cirrhosis Gastroesophageal reflux disease Hypothyroidism Mixed hyperlipidemia Personal history of nicotine dependence Primary biliary cholangitis Psoriasis with arthropathy Umbilical hernia Surgical History Surgical History (Updated 06/21/21 @ 21:01 by Brandy Flores PA-C) History of colonoscopy History of mandibular surgery History of tubal ligation Family History Family History Father Cerebrovascular accident Family history of heart disease in male family member before age 55 Family history of cardiovascular disease Social History Social History (Updated 06/21/21 @ 21:04 by Brandy Flores PA-C) Social History: The [place]
[2021-06-22 13:40] LABS: Appearance Peritoneal Fluid Clear (Clear); Color Peritoneal Fluid Yellow (Colorless); Nucleated Cells Peritoneal Flu 194 /uL (0-500); RBC Peritoneal Fluid 320 /uL (0-100000); Source Peritoneal Fluid Peritoneal Fluid
[2021-06-22 13:44] LABS: Lymphocytes Peritoneal Fluid 46 %; Macrophages Peritoneal Fluid 8 %; Mesothelial Cells Peritoneal Fluid 18 %; Neutrophils Peritoneal Fluid 25 % (0-25)
[2021-06-22 13:47] LABS: Monocytes Peritoneal Fluid 3 %
[2021-06-22 14:00] VITALS: BP 98/53; PULSE 89; RESP 16; TEMP 36.1; O2SAT 97
[2021-06-22] MEDS: LACTULOSE 20 GM/30 ML UDC PO ×2 (14:42→18:07)
[2021-06-22] MEDS: ALBUMIN HUMAN 25% 25 GM/100 ML 200 ML IVPB (14:42)
--- NOTE | 2021-06-22 14:54 | PM.IMPN ---
Progress Note: A&P Assessment and Plan (1) Hepatic encephalopathy: Code(s): K72.90 - Hepatic failure, unspecified without coma Status: Acute Assessment and Plan: She was given lactulose enema yesterday with multiple bowel movements. She has now resumed on rifaximin and lactulose orally. It has been documented that she has seen a pool player at [place] though I have been unable to find any information regarding that, in fact some documentation has stated that she has chosen not to follow-up with a pool player. Once her mentation improves we will need to have a carmen discussion with the patient regarding goals of care. Thoracentesis was performed which is negative for SBP. Meld score is 23. (2) Fall: Code(s): W19.XXXA - Unspecified fall, initial encounter Status: Acute Assessment and Plan: It appears that the patient may have had numerous falls recently given different stages of healing with regards to bruises and skin tears. Initiate fall precautions. Will need PT/OT when her mentation improves. (3) Cirrhosis of liver with ascites: Code(s): K74.60 - Unspecified cirrhosis of liver; R18.8 - Other ascites Status: Acute Assessment and Plan: Diagnostic paracentesis was done the emergency department yielding approximately 18 mL of fluid which have been sent for Gram stain and culture. Her white blood cell count is a bit elevated however her exam is benign and SBP is felt to be less likely. There is not much room to diurese the patient given her worsening renal function over the past couple of months. Paracentesis was performed which did not show any evidence of SBP. (4) Normocytic anemia: Code(s): D64.9 - Anemia, unspecified Status: Acute Assessment and Plan: Check iron studies as well as B12 and folate. Will also check stool for occult blood. (5) Primary biliary cholangitis: Code(s): K74.3 - Primary biliary cirrhosis Status: Acute Assessment and Plan: It is my understanding that the patient was referred to pool player at [facility] [place] and that a workup had been initiated though there other notations stating that she has decided not to follow hepatology. Records have been requested. Given the progression of her disease, now with renal failure, she is at a point in time where she needs to consider further treatment, interventions, or even transplant CHAVEZ. Unfortunately she is not alert enough to discuss her goals at this time. I do not see that a [id number] has been designated. Gastroenterology service recommendations appreciated. Jaya score is 23. (6) Renal failure: Code(s): N19 - Unspecified kidney failure Status: Acute Assessment and Plan: Creatinine was normal in September 2020 and has ranged anywhere from 1.40 to 3.20 since March 2021. She is receiving lactulose. She has peripheral edema on clinical examination and probably need to resume Lasix at some point. Hopefully we can continue her spironolactone. If renal parameters worsen then will involve nephrology service in her care. (7) Hypothyroidism: Code(s): E03.9 - Hypothyroidism, unspecified Status: Acute Assessment and Plan: Continue levothyroxine and liothyronine. TSH was minimally elevated. Free T4 is within normal range. Total T3 is mildly reduced be Subjective Date/time seen: 06/22/21 14:54 She was given lactulose enema yesterday and had multiple bowel movements since. She is still very confused and was nonverbal. She was comfortable and was not in any distress. She is scheduled to have paracentesis today Review of Systems Review of Systems: ROS unobtainable: Yes unobtainable due to mental status Exam Narrative: General awake but not alert. Was not in any distress. She was noncommunicative. 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
[2021-06-22] MEDS: ONDANSETRON INJ 4 MG/2 ML VIAL IV PUSH (15:11)
[2021-06-22 19:49] VITALS: BP 88/64; PULSE 92; RESP 18; TEMP 36.3; O2SAT 96
[2021-06-23] MEDS: LACTATED RINGERS 1,000 ML 75 ML IV CONT (01:24)
[2021-06-23 04:34] VITALS: BP 100/52; PULSE 79; RESP 17; TEMP 36.3; O2SAT 97
[2021-06-23 05:50] LABS: Basophils Absolute Auto 0.1 K/mm3 (0.0-0.1); Basophils Percent Auto 0.5 % (0.2-1.2); Eosinophils Absolute Auto 0.1 K/mm3 (0-0.3); Eosinophils Percent Auto 1.1 % (0-4.4); Hematocrit 22.5 % (37.0-47.0); Hemoglobin 8.1 g/dL (12.0-15.0); Immature Granulocyte Absolute 0.05 K/mm3 (0.00-0.031); Immature Granulocyte Percent A 0.5 % (0-0.5); Lymphocytes Absolute Auto 2.35 K/mm3 (0.9-3.2); Lymphocytes Percent Auto 24.3 % (18.3-44.2); Mean Corpuscular Hemoglobin 33.3 pg (26-34); Mean Corpuscular Volume 92.6 fl (80-100); Mean Platelet Volume 10.2 fl (7.4-10.4); Monocytes Absolute Auto 0.7 K/mm3 (0.1-0.6); Monocytes Percent Auto 7.4 % (2.6-8.5); Neutrophils Absolute Auto 6.4 K/mm3 (1.3-6.7); Neutrophils Percent Auto 66.2 % (45.5-73.1); Platelet Count Result 129 k/mm3 (150-375); Red Blood Count 2.43 M/mm3 (4.2-5.4); Red Cell Distribution Width 19.9 % (11.5-14.5); White Blood Count 9.7 K/mm3 (4.5-10.0)
[2021-06-23] MEDS: LEVOTHYROXINE SODIUM 150 MCG TABLET PO (05:58)
[2021-06-23 06:02] LABS: Anion Gap 15 mmol/L (8-16); Blood Urea Nitrogen 58 mg/dL (7-17); Calcium 8.6 mg/dL (8.4-10.2); Carbon Dioxide 15 mmol/L (22-30); Chloride 106 mmol/L (98-107); Estimated CRCL calculation 18 ml/min; Estimated Glomerular Filt Rate 19; Glucose 68 mg/dL (65-110); Sodium 136 mmol/L (137-145)
[2021-06-23] MEDS: UMECLIDINIUM/VILANTEROL 62.5-25 MCG ELLIPTA 1 PUFF INHALATION (08:00)
[2021-06-23] MEDS: LANSOPRAZOLE ORAL SUSP 30 MG/10 ML ORAL.SUSP PO (08:25)
[2021-06-23] MEDS: FOLIC ACID 1 MG TABLET PO (08:26)
[2021-06-23] MEDS: LIOTHYRONINE SODIUM 5 MCG TABLET PO (08:26)
[2021-06-23] MEDS: TAMSULOSIN HCL 0.4 MG CAPSULE PO (08:26)
[2021-06-23] MEDS: ursodioL 300 MG CAPSULE 600 MG PO ×2 (08:26→17:45)
[2021-06-23] MEDS: rifAXIMin 550 MG TABLET PO ×2 (08:26→20:40)
[2021-06-23] MEDS: LACTULOSE 20 GM/30 ML UDC PO ×3 (08:27→17:45)
--- NOTE | 2021-06-23 09:36 | WPDGIPROGNO ---
Progress Note: A&P Assessment and Plan (1) Hepatic encephalopathy: Code(s): K72.90 - Hepatic failure, unspecified without coma Status: Acute Assessment and Plan: more awake and alert than yesterday continue with oral lactulose- titrate to 3-4 BM/d and also xifaxan bid nutrition support Dr Carrizales will resume care tomorrow (2) Decompensated hepatic cirrhosis: Code(s): K72.90 - Hepatic failure, unspecified without coma; K74.60 - Unspecified cirrhosis of liver Status: Acute Assessment and Plan: with ascites and PSE, also CKD yesterday had elevated MELD score 23, will check labs in am again (3) Acute on chronic renal failure: Code(s): N17.9 - Acute kidney failure, unspecified; N18.9 - Chronic kidney disease, unspecified Status: Acute Assessment and Plan: s/p albumin iv after paracentesis- no SBP probably component of hepatorenal holding diuretics for now (4) Cirrhosis of liver with ascites: Code(s): K74.60 - Unspecified cirrhosis of liver; R18.8 - Other ascites Status: Acute Assessment and Plan: s/p paracentesis, more comfortable 2g Na diet (5) Primary biliary cholangitis: Code(s): K74.3 - Primary biliary cirrhosis Status: Acute Assessment and Plan: on nain, with decompensated cirrhosis Subjective Date/time seen: 06/23/21 09:36 Interval history: she is more awake today, talking and interacting. She says that still can not think straight and feels confused. Tolerating breakfast Review of Systems Review of Systems: All systems reviewed & are unremarkable except as noted in HPI and below Exam Const: General: comfortable, no acute distress and ill appearing chronically HENMT: General nose exam: Normal nares present Eyes: Sclera: sclerae normal Neck: Neck: supple Resp: Auscultation: clear to auscultation bilaterally Cardio: Rate: regular rate GI: GI Palp: Yes Soft to palpation and No Tenderness to palpation present (GI) Percussion: Yes Fluid wave present (less after paracentesis) Auscultation: normal bowel sounds Skin: Other: bruises in arms Neuro: Speech: normal speech Other: more awake and alert, + sbutle tremors Extrem: General: pedal edema Psych: Affect: normal affect Objective Data Vital Signs Vital Signs: Vital Signs - 24 hr 06/22/21 14:00 06/22/21 19:49 06/23/21 04:34 Temperature 97 F L 97.3 F L 97.3 F L Pulse Rate 89 92 79 Respiratory Rate 16 18 17 Blood Pressure 98/53 L 88/64 L 100/52 L Pulse Oximetry 97 96 97 Intake/Output Intake/Output: Intake & Output 06/20/21 06/21/21 06/22/21 06/23/21 23:59 23:59 23:59 23:59 Intake Total 752 768 Output Total 500 2200 Balance -500 -1448 768 Meds/Results Medications: Active Medications Generic Name Dose Route Start Last Admin Trade Name Freq PRN Reason Stop Dose Admin Folic Acid 1 mg 06/22/21 09:00 06/23/21 08:26 Folic Acid 1 Mg Tablet PO 1 mg DAILY MINAL Administration Lactated Ringer's 1,000 mls @ 75 mls/hr 06/21/21 15:50 06/23/21 01:24 Lr - Lactated Ringers Iv IV CONT 75 mls/hr .[id number] MINAL Administration Lactulose 20 gm 06/22/21 13:00 06/23/21 08:27 Lactulose 20 Gm/30 Ml Udc PO 20 gm TID MINAL Administration Lansoprazole 30 mg 06/22/21 08:00 06/23/21 08:25 Lansoprazole Oral Susp 30 Mg/10 Ml Oral.Susp PO 30 mg DAILY@0800 MINAL Administration Levothyroxine Sodium 150 mcg 06/22/21 06:30 06/23/21 05:58 Levothyroxine Sodium 150 Mcg Tablet PO 150 mcg DAILY@0630 MINAL Administration Liothyronine Sodium 5 mcg 06/22/21 09:00 06/23/21 08:26 Liothyronine Sodium 5 Mcg Tablet PO 5 mcg DAILY MINAL Administration Ondansetron HCl 4 mg 06/21/21 15:48 06/22/21 15:11 Ondansetron Inj 4 Mg/2 Ml Vial IV PUSH 4 mg Q4H PRN Administration Nausea Rifaximin 550 mg 06/22/21 09:00 06/23/21 08:26 Rifaximin 550 Mg Tablet PO 550 mg Q12HR MINAL Administration Tamsul
[2021-06-23 12:14] LABS: IFOB Positive Control Positive; Immunochemical Fecal Occult Bl Positive (N)
--- NOTE | 2021-06-23 12:21 | PM.IMPN ---
Progress Note: A&P Assessment and Plan (1) Hepatic encephalopathy: Code(s): K72.90 - Hepatic failure, unspecified without coma Status: Acute Assessment and Plan: She was given lactulose enema 07/11 with multiple bowel movements. She has now resumed on rifaximin and lactulose orally. Titrate lactulose to 3-4 bowel movements per day. It has been documented that she has seen a office clerk at [facility] though I have been unable to find any information regarding that, in fact some documentation has stated that she has chosen not to follow-up with a office clerk. Once her mentation improves we will need to have a carmen discussion with the patient regarding goals of care. Paracenteses was performed and 2.2 L fluid was drained which is negative for SBP. Fluid albumin and amylase is pending. Leukocyte count was 194 with polymorph neutrophil being 25%. Cultures are pending. Meld score is 23. Repeat serum ammonia in the a.m.. (2) Fall: Code(s): W19.XXXA - Unspecified fall, initial encounter Status: Acute Assessment and Plan: It appears that the patient may have had numerous falls recently given different stages of healing with regards to bruises and skin tears. Initiate fall precautions. Will need PT/OT when her mentation improves. (3) Cirrhosis of liver with ascites: Code(s): K74.60 - Unspecified cirrhosis of liver; R18.8 - Other ascites Status: Acute Assessment and Plan: Diagnostic paracentesis was done the emergency department yielding approximately 18 mL of fluid which have been sent for Gram stain and culture. Her white blood cell count is a bit elevated however her exam is benign and SBP is felt to be less likely. There is not much room to diurese the patient given her worsening renal function over the past couple of months. Paracentesis was performed which did not show any evidence of SBP. (4) Normocytic anemia: Code(s): D64.9 - Anemia, unspecified Status: Acute Assessment and Plan: Check iron studies as well as B12 and folate. Will also check stool for occult blood. (5) Primary biliary cholangitis: Code(s): K74.3 - Primary biliary cirrhosis Status: Acute Assessment and Plan: It is my understanding that the patient was referred to office clerk at [facility] and that a workup had been initiated though there other notations stating that she has decided not to follow hepatology. Records have been requested. Given the progression of her disease, now with renal failure, she is at a point in time where she needs to consider further treatment, interventions, or even transplant CHAVEZ. Unfortunately she is not alert enough to discuss her goals at this time. I do not see that a [id number] has been designated. Gastroenterology service recommendations appreciated. MELD score is 23. Recheck labs in a.m.. (6) Renal failure: Code(s): N19 - Unspecified kidney failure Status: Acute Assessment and Plan: Creatinine was normal in September 2020 and has ranged anywhere from 1.40 to 3.20 since March 2021. She is receiving lactulose. She has peripheral edema on clinical examination and probably need to resume Lasix at some point. I will hold off initiating Lasix today and reassess in the a.m.. She is still acidotic with serum bicarb of 15. I will add oral bicarb to her regimen. If renal parameters worsen then will involve nephrology service in her care. (7) Hypothyroidism: Code(s): E03.9 - Hypothyroidism, unspecified Status: Acute Assessment and Plan: Continue levothyroxine and liothyronine. TSH was minimally elevated. Free T4 is within normal range. Total T3 is mildly reduced be Additional Plan Her p.o. intake is adequate. I will stop IV fluids today. Nurse has reported cough when she is taking liquid diet. Speech evaluation has been requested. PT OT will be consulted.
[2021-06-23] MEDS: POTASSIUM CHLORIDE 20 MEQ PACKET (FOR LIQUID) 40 MEQ PO (12:50)
--- NOTE | 2021-06-23 13:08 | PCSTNOTE ---
Please refer to the Bedside Swallow Evaluation in the EMR. Please note, silent aspiration cannot be ruled out at bedside.
[2021-06-23 14:00] VITALS: PULSE 81; RESP 16; TEMP 36.4; O2SAT 98
[2021-06-23 14:42] VITALS: BP 86/44
[2021-06-23] MEDS: SODIUM BICARBONATE TAB 650 MG TABLET PO (17:45)
[2021-06-23 21:40] VITALS: BP 95/48; PULSE 104; RESP 24; TEMP 36; O2SAT 97
[2021-06-24 05:00] VITALS: BP 96/47; PULSE 79; RESP 20; TEMP 36.8; O2SAT 96
[2021-06-24] MEDS: LEVOTHYROXINE SODIUM 150 MCG TABLET PO (05:46)
[2021-06-24 06:02] LABS: Basophils Absolute Auto 0.1 K/mm3 (0.0-0.1); Basophils Percent Auto 0.6 % (0.2-1.2); Eosinophils Absolute Auto 0.1 K/mm3 (0-0.3); Eosinophils Percent Auto 1.3 % (0-4.4); Hematocrit 25.3 % (37.0-47.0); Immature Granulocyte Absolute 0.05 K/mm3 (0.00-0.031); Immature Granulocyte Percent A 0.5 % (0-0.5); Lymphocytes Absolute Auto 2.06 K/mm3 (0.9-3.2); Lymphocytes Percent Auto 20.1 % (18.3-44.2); Mean Corpuscular HGB Conc 35.6 g/dl (32-36); Mean Corpuscular Hemoglobin 33.7 pg (26-34); Mean Corpuscular Volume 94.8 fl (80-100); Mean Platelet Volume 10.9 fl (7.4-10.4); Monocytes Percent Auto 9.3 % (2.6-8.5); Neutrophils Percent Auto 68.2 % (45.5-73.1); Platelet Count Result 129 k/mm3 (150-375); Red Blood Count 2.67 M/mm3 (4.2-5.4); Red Cell Distribution Width 19.9 % (11.5-14.5); White Blood Count 10.2 K/mm3 (4.5-10.0)
[2021-06-24 06:06] LABS: Ammonia 72 umol/L (9-30)
[2021-06-24 06:12] LABS: INR 1.6; Prothrombin Time 18.7 Seconds (11.1-14.7)
[2021-06-24 06:27] LABS: Alanine Aminotransferase 23 U/L (4-35); Albumin Level 2.8 g/dL (3.5-5.1); Alkaline Phosphatase 311 U/L (38-126); Anion Gap 14 mmol/L (8-16); Aspartate Amino Transferase 42 U/L (14-36); Bilirubin,Total 2.1 mg/dL (0.2-1.3); Blood Urea Nitrogen 56 mg/dL (7-17); Calcium 8.5 mg/dL (8.4-10.2); Carbon Dioxide 17 mmol/L (22-30); Chloride 104 mmol/L (98-107); Estimated CRCL calculation 19 ml/min; Estimated Glomerular Filt Rate 20; Glucose 79 mg/dL (65-110); Potassium 3.1 mmol/L (3.4-5.0); Sodium 135 mmol/L (137-145)
--- NOTE | 2021-06-24 07:14 | WPDGIPROGNO ---
Progress Note: A&P Assessment and Plan (1) Decompensated hepatic cirrhosis: Code(s): K72.90 - Hepatic failure, unspecified without coma; K74.60 - Unspecified cirrhosis of liver Status: Acute Assessment and Plan: Patient has decompensated hepatic cirrhosis. [place] be on the basis of PBC. Now with ascites and hepatic encephalopathy. . Patient previously referred to [facility] but has failed to follow up with him. Agree that liver transplantation is a consideration. Patient previously is refused to follow up with [facility] lap grinder. Continue supportive care for now. (2) Primary biliary cholangitis: Code(s): K74.3 - Primary biliary cirrhosis Status: Acute Assessment and Plan: Patient with PBC now with decompensated cirrhosis. Continue May. (3) Hepatic encephalopathy: Code(s): K72.90 - Hepatic failure, unspecified without coma Status: Acute Assessment and Plan: Patient more alert today. A [place] encephalopathy with elevated ammonia. Continue lactulose and titrate to 2-3 stools a day. Xifaxan has been started will be continued as well. (4) Acute on chronic renal failure: Code(s): N17.9 - Acute kidney failure, unspecified; N18.9 - Chronic kidney disease, unspecified Status: Acute Assessment and Plan: Patient with renal insufficiency. This is limited diuretic use. Currently diuresis on hold. Continue to monitor renal function. Intermittent paracentesis may be required at this point. Cannot exclude a component of hepatorenal syndrome. Subjective Date/time seen: 06/24/21 07:14 Patient more alert today still. Very weak. Not much of an appetite. Review of Systems Review of Systems: ROS unobtainable: Yes unobtainable due to medical condition Exam Narrative: Physical exam reveals patient to be alert. She is somewhat cachectic. Proximal what muscle wasting noted. Few spider angiomatas. Abdomen distended with tympany. Extremities with 1+ edema at the ankles. Objective Data Vital Signs Vital Signs: Vital Signs - 24 hr 06/23/21 14:00 06/23/21 14:42 06/23/21 21:40 Temperature 97.6 F 96.8 F L Pulse Rate 81 104 H Respiratory Rate 16 24 H Blood Pressure 86/44 L 95/48 L Pulse Oximetry 98 97 06/24/21 05:00 Temperature 98.3 F Pulse Rate 79 Respiratory Rate 20 Blood Pressure 96/47 L Pulse Oximetry 96 Intake/Output Intake/Output: Intake & Output 06/21/21 06/22/21 06/23/21 06/24/21 23:59 23:59 23:59 23:59 Intake Total 752 2158 100 Output Total 500 2200 175 Balance -500 -1448 1982 100 Meds/Results Medications: Active Medications Generic Name Dose Route Start Last Admin Trade Name Freq PRN Reason Stop Dose Admin Folic Acid 1 mg 06/22/21 09:00 06/23/21 08:26 Folic Acid 1 Mg Tablet PO 1 mg DAILY MINAL Administration Lactulose 20 gm 06/22/21 13:00 06/23/21 17:45 Lactulose 20 Gm/30 Ml Udc PO 20 gm TID MINAL Administration Lansoprazole 30 mg 06/22/21 08:00 06/23/21 08:25 Lansoprazole Oral Susp 30 Mg/10 Ml Oral.Susp PO 30 mg DAILY@0800 MINAL Administration Levothyroxine Sodium 150 mcg 06/22/21 06:30 06/24/21 05:46 Levothyroxine Sodium 150 Mcg Tablet PO 150 mcg DAILY@0630 MINAL Administration Liothyronine Sodium 5 mcg 06/22/21 09:00 06/23/21 08:26 Liothyronine Sodium 5 Mcg Tablet PO 5 mcg DAILY MINAL Administration Ondansetron HCl 4 mg 06/21/21 15:48 06/22/21 15:11 Ondansetron Inj 4 Mg/2 Ml Vial IV PUSH 4 mg Q4H PRN Administration Nausea Rifaximin 550 mg 06/22/21 09:00 06/23/21 20:40 Rifaximin 550 Mg Tablet PO 550 mg Q12HR MINAL Administration Sodium Bicarbonate 650 mg 06/23/21 17:00 06/23/21 17:45 Sodium Bicarbonate Tab 650 Mg Tablet PO 650 mg BID MINAL Administration Tamsulosin HCl 0.4 mg 06/22/21 09:00 06/23/21 08:26 Tamsulosin Hcl 0.4 Mg Capsule PO 0.4 mg QAM MINAL Administration Umeclidinium/Vilanterol 1 p
[2021-06-24] MEDS: UMECLIDINIUM/VILANTEROL 62.5-25 MCG ELLIPTA 1 PUFF INHALATION (07:55)
[2021-06-24] MEDS: LANSOPRAZOLE ORAL SUSP 30 MG/10 ML ORAL.SUSP PO (08:17)
[2021-06-24 08:18] VITALS: RESP 20; O2SAT 95
[2021-06-24] MEDS: TAMSULOSIN HCL 0.4 MG CAPSULE PO (08:18)
[2021-06-24] MEDS: SODIUM BICARBONATE TAB 650 MG TABLET PO ×2 (08:18→17:40)
[2021-06-24] MEDS: LIOTHYRONINE SODIUM 5 MCG TABLET PO (08:18)
[2021-06-24] MEDS: ursodioL 300 MG CAPSULE 600 MG PO ×2 (08:18→17:41)
[2021-06-24] MEDS: LACTULOSE 20 GM/30 ML UDC PO ×3 (08:18→17:40)
[2021-06-24] MEDS: FOLIC ACID 1 MG TABLET PO (08:18)
[2021-06-24] MEDS: rifAXIMin 550 MG TABLET PO ×2 (08:18→20:34)
[2021-06-24] MEDS: POTASSIUM CHLORIDE 20 MEQ TABLET 40 MEQ PO ×2 (09:41→14:36)
[2021-06-24 09:53] LABS: Magnesium 1.9 mg/dL (1.6-2.3)
[2021-06-24 11:30] VITALS: BMI 27.2
--- NOTE | 2021-06-24 13:28 | PM.IMPN ---
Progress Note: A&P Assessment and Plan (1) Hepatic encephalopathy: Code(s): K72.90 - Hepatic failure, unspecified without coma Status: Acute Assessment and Plan: She was given lactulose enema 06/21 with multiple bowel movements. She has now resumed on rifaximin and lactulose orally 20 gm PO TID. It has been documented that she has been referred to sausage wrapper at [facility] or [facility] but has not followed up. Paracenteses was performed 06/22/21 and 2.2 L fluid was drained which is negative for SBP. Fluid albumin and amylase is pending. Leukocyte count was 194 with polymorph neutrophil being 25%. Cultures are pending. Meld score is 23. Serum ammonia still elevated today 72. 06/24/21 has not had a bowel movement per staff, told them to call Dr. Carrizales about need for possible titration in dosing for a goal of 3-4 bowel movements per day. I did discussed with the patient Hospice options. She told me she will have to talk to her friend Kristi about everything we have talked about. Repeat serum ammonia in the a.m.. (2) Renal failure: Code(s): N19 - Unspecified kidney failure Status: Acute Assessment and Plan: Creatinine was normal in September 2020 and has ranged anywhere from 1.40 to 3.20 since March 2021. She is receiving lactulose. She has peripheral edema on clinical examination and probably need to resume Lasix at some point. I will hold off initiating Lasix today and reassess in the a.m.. She is still acidotic with serum bicarb of 15. Continue oral bicarb 650 BID If renal parameters worsen then will involve nephrology service in her care. Will consult Nephrology due to continued elevated renal function and their input is appreciated. (3) Cirrhosis of liver with ascites: Code(s): K74.60 - Unspecified cirrhosis of liver; R18.8 - Other ascites Status: Acute Assessment and Plan: Diagnostic paracentesis was done the emergency department yielding approximately 18 mL of fluid which have been sent for Gram stain and culture. Her white blood cell count is a bit elevated however her exam is benign and SBP is felt to be less likely. There is not much room to diurese the patient given her worsening renal function over the past couple of months. Paracentesis was performed which did not show any evidence of SBP. (4) Normocytic anemia: Code(s): D64.9 - Anemia, unspecified Status: Acute Assessment and Plan: Most likely chronic due to liver cirrhosis and acute on chronic CKD. Iron studies as well as B12 and folate were normal. Patient had positive occult blood stool. will start pantoprazole and acid at this time. Will check H&H in the morning. Transfuse if less than 7. (5) Primary biliary cholangitis: Code(s): K74.3 - Primary biliary cirrhosis Status: Acute Assessment and Plan: It is my understanding that the patient was referred to sausage wrapper at [facility] and that a workup had been initiated though there other notations stating that she has decided not to follow hepatology. Records have been requested. Given the progression of her disease, now with renal failure, she is at a point in time where she needs to consider further treatment, interventions, or even transplant CHAVEZ. Unfortunately she is not alert enough to discuss her goals at this time. I do not see that a [id number] has been designated. Gastroenterology service recommendations appreciated. MELD score is 23. Recheck labs in a.m.. (6) Hypothyroidism: Code(s): E03.9 - Hypothyroidism, unspecified Status: Acute Assessment and Plan: Continue levothyroxine and liothyronine. TSH was minimally elevated. Free T4 is within normal range. Total T3 is mildly reduced (7) Fall: Code(s): W19.XXXA - Unspecified fall, initial encounter Status: Acute Assessment and Plan: It appears that the patient may have had
[2021-06-24] MEDS: LACTATED RINGERS 1,000 ML 70 ML IV CONT (14:50)
[2021-06-24 15:18] VITALS: BP 90/40; PULSE 77; RESP 16; TEMP 36.2; O2SAT 99
--- NOTE | 2021-06-24 15:37 | PCPTNOTE ---
On 06/24/21, the student, Jacques Treadwell, provided care and completed [facility] documentation on this patient. I have reviewed the student's documentation and agree with the findings.
--- NOTE | 2021-06-24 15:52 | PM.CNNEP ---
Assessment and Plan Assessment and plan (1) Acute on chronic renal failure: Code(s): N17.9 - Acute kidney failure, unspecified; N18.9 - Chronic kidney disease, unspecified Status: Acute Assessment and Plan: Sheba has chronic kidney disease. Her creatinine seems to run around 2. This may be due to chronic pre renal azotemia because of her cirrhosis. She also may have some vascular disease in the kidneys. Will check labs to investigate this more. Patient has acute kidney injury as well. this is in the setting of decompensated cirrhosis. This may be worsened pre renal status. hepatorenal syndrome is a possibility because her urine output is not very high. Will check a urine sodium to check on this. Her blood pressure is also low, probably from the 3rd spacing from the liver and possibly vasodilatation due to the liver. It is possible that she has infection as well but she has no fever or white count so I think this is less likely. Cultures are being done and she is going to get another paracentesis today. Obstruction is always a possibility. Will get a renal ultrasound. Rhabdomyolysis is always a possibility as well. Will check a CPK. It is unlikely this is glomerulonephritis in this clinical scenario but her risk of a GN is a little bit higher than baseline because she already has autoimmune diseases in her PBC and psoriasis. Out think the medication is doing any of this. At this point will continue the IV fluids. I am going to give her scheduled albumin as well. Will check urine electrolytes, serology, kappa lambda ratio, Renal ultrasound, and go from there. (2) Decompensated hepatic cirrhosis: Code(s): K72.90 - Hepatic failure, unspecified without coma; K74.60 - Unspecified cirrhosis of liver Status: Acute Assessment and Plan: the patient is on rifaximin. She is also on lactulose. She is getting and paracentesis today. (3) Normocytic anemia: Code(s): D64.9 - Anemia, unspecified Status: Acute Assessment and Plan: Will follow this along. Consider Epogen if the hemoglobin starts to drop. (4) Gastroesophageal reflux disease: Code(s): K21.9 - Gastro-esophageal reflux disease without esophagitis Status: Acute Assessment and Plan: She is on Prevacid at home for this (5) Hypothyroidism: Code(s): E03.9 - Hypothyroidism, unspecified Status: Acute Assessment and Plan: she is on thyroid supplementation. History of Present Illness Reason for Consult Consult date: 06/24/21 Chief Complaint Chief complaint: encephalopathy History of Present Illness Narrative: Sheba is an unfortunate 70-year-old lady who has primary biliary cirrhosis (recurrent ascites, hepatic encephalopathy, edema), anemia, positive OSCAR, hypertension, COPD, hypothyroidism, GERD, psoriasis, former smoker. The patient apparently was found at home on the floor by friends who called EMS. They brought her to [facility]. She was very confused. She was felt to be dehydrated and in the midst of hepatic encephalopathy. Her ammonia level was 165. She was given rifaximin. She had been at [facility] before and was referred to [facility] to the roustabout hand. She was also sent home on rifaximin the last visit. Apparently she did not make the appointment to see the roustabout hand and also did not fill her rifaximin. Patient was found have an elevated creatinine. This worsened and so renal consultation was requested. She can not give much of a history. There is no history of bladder infections hematuria kidney stones. She does not take nonsteroidal anti-inflammatory agents. In early May when she was here, her creatinine was about 1.4 on discharge. On admission here her creatinine was at 2.5. She has been given IV fluids and albumin but the creatinine has stayed elevated so renal consultation was requested. she also has a low bicarb, low-po
[2021-06-24] MEDS: ALBUMIN HUMAN 25% 25 GM/100 ML 100 ML IVPB ×2 (17:41→23:26)
[2021-06-24 17:46] LABS: Lactic Acid Reflex 1.7 mmol/L (0.7-2.1)
[2021-06-24 18:04] LABS: Parathyroid Intact 53.7 pg/mL (7.5-53.5)
[2021-06-24 19:01] LABS: Creatine Kinase 70 U/L (30-135)
[2021-06-24 19:14] LABS: Complement C3 46 mg/dL (88-165)
[2021-06-24 20:00] VITALS: PULSE 78; RESP 20; O2SAT 98
[2021-06-24] MEDS: PANTOPRAZOLE SODIUM IV 40 MG VIAL IV PUSH (20:34)
[2021-06-24 21:31] VITALS: BP 92/42; PULSE 78; RESP 20; TEMP 36.5; O2SAT 98
[2021-06-25 01:34] VITALS: PULSE 77; RESP 16; O2SAT 99
[2021-06-25] MEDS: ALBUMIN HUMAN 25% 25 GM/100 ML 100 ML IVPB ×3 (04:58→17:50)
[2021-06-25] MEDS: LEVOTHYROXINE SODIUM 150 MCG TABLET PO (04:58)
[2021-06-25 05:34] LABS: Hematocrit 25.4 % (37.0-47.0); Hemoglobin 9.2 g/dL (12.0-15.0); Mean Corpuscular HGB Conc 36.2 g/dl (32-36); Mean Corpuscular Hemoglobin 34.5 pg (26-34); Mean Corpuscular Volume 95.1 fl (80-100); Mean Platelet Volume 10.5 fl (7.4-10.4); Platelet Count Result 123 k/mm3 (150-375); Red Blood Count 2.67 M/mm3 (4.2-5.4); White Blood Count 14.1 K/mm3 (4.5-10.0)
[2021-06-25 05:43] LABS: Ammonia 157 umol/L (9-30)
[2021-06-25 05:45] LABS: INR 1.7; Prothrombin Time 19.4 Seconds (11.1-14.7)
[2021-06-25 05:46] LABS: Alanine Aminotransferase 20 U/L (4-35); Albumin Level 3.2 g/dL (3.5-5.1); Alkaline Phosphatase 258 U/L (38-126); Anion Gap 13 mmol/L (8-16); Aspartate Amino Transferase 39 U/L (14-36); Bilirubin,Total 2.3 mg/dL (0.2-1.3); Blood Urea Nitrogen 54 mg/dL (7-17); Calcium 9.1 mg/dL (8.4-10.2); Carbon Dioxide 17 mmol/L (22-30); Chloride 103 mmol/L (98-107); Estimated CRCL calculation 20 ml/min; Estimated Glomerular Filt Rate 21; Glucose 119 mg/dL (65-110); Magnesium 1.9 mg/dL (1.6-2.3); Potassium 4.4 mmol/L (3.4-5.0); Sodium 133 mmol/L (137-145)
[2021-06-25 05:53] VITALS: BP 98/40; PULSE 95; RESP 18; TEMP 36.6; O2SAT 97
--- NOTE | 2021-06-25 09:06 | PM.IMPN ---
Progress Note: A&P Additional Plan START OF DOCTOR JAVAD?S PROGRESS NOTE Subjective: The patient is encephalopathic at the present time and thus is unable to provide any feedback Objective: General: -encephalopathic -No acute distress -No dyspnea -No tachypnea Heart: -Regular rate -Regular rhythm -No murmurs -No gallops -No rubs Lungs: -No wheeze -No rhonchi -No rales Abdomen: -Normal bowel sounds in all four quadrants -No rebound -No guarding -No tenderness -abdominal distention present Extremities: -2/4 pulse in all four extremities -No clubbing -No cyanosis -2+ by pedal pitting edema present Additional Details / Additional Findings / Exceptions / Miscellaneous: Pertinent Laboratory Results / Pertinent Radiology Results / Pertinent Diagnostic Results / Pertinent Vital Signs: Blood pressure 98/40, white blood cell count 14.1, hemoglobin 9.2, platelet count 430233, INR 1.7, sodium 133, creatinine 2.3, total bili is 2.3, alkaline phosphatase 258, ammonia 157 Assessment / Plan: Primary biliary cirrhosis, question end-stage. Ursodiol 600 mg p.o. b.i.d.. Monitor LFTs periodically with CMP along with PT/INR. Right upper quadrant ultrasound pending Ascites, status post paracentesis June 22, 2021 with aspiration of 2.2 L of fluid Hypothyroidism. Synthroid will have 50 mg p.o. daily plus Cytomel 5 mg p.o. daily GERD. Protonix 40 mg IV q.12 hours COPD. Trelegy Ellipta: 1 inhalation daily Hypertension Hyperlipidemia Smoker. Patient counseled regarding smoking cessation Psoriasis Hyperammonemia. Monitor ammonia levels intermittently. Lactulose 30 g p.o. q.i.d. plus Xifaxan 550 mg p.o. b.i.d. Acute on chronic kidney disease, baseline creatinine approximately 2. I appreciate Nephrology evaluate the patient. Will monitor creatinine intermittently. Albumin 25 g IV q.6 hours was IV lactated Ringer's at 75 mL/hour plus sodium bicarbonate 650 mg p.o. b.i.d. Question of history of medical noncompliance. Patient will be counseled regarding medical compliance Anemia of chronic disease. Fecal occult blood is positive for which patient will need follow-up with Gastroenterology upon discharge. Will monitor hemoglobin level intermittently Thrombocytopenia, likely sequelae of primary biliary cirrhosis. Will monitor platelet count intermittently Hyponatremia. Will monitor sodium levels intermittently Elevated lipase. Monitor lipase levels intermittently DVT prophylaxis. Bilateral CT Disposition: Poor prognosis END OF DOCTOR JAVAD?S PROGRESS NOTE Subjective Date/time seen: 06/25/21 09:06 Objective Data Vital Signs Vital Signs: Vital Signs - 24 hr 06/24/21 15:18 06/24/21 20:00 06/24/21 21:31 Temperature 97.1 F L 97.7 F Pulse Rate 77 78 78 Respiratory Rate 16 20 20 Blood Pressure 90/40 L 92/42 L Pulse Oximetry 99 98 98 06/25/21 01:34 06/25/21 05:53 Temperature 97.9 F Pulse Rate 77 95 Respiratory Rate 16 18 Blood Pressure 98/40 L Pulse Oximetry 99 97 Intake/Output Intake/Output: Intake & Output 06/22/21 06/23/21 06/24/21 06/25/21 23:59 23:59 23:59 23:59 Intake Total 752 2158 920 100 Output Total 2200 175 4400 Balance -1448 1982 -3480 100 Meds/Results Medications: Active Medications Generic Name Dose Route Start Last Admin Trade Name Freq PRN Reason Stop Dose Admin Folic Acid 1 mg 06/22/21 09:00 06/24/21 08:18 Folic Acid 1 Mg Tablet PO 1 mg DAILY MINAL Administration Lactated Ringer's 1,000 mls @ 70 mls/hr 06/24/21 14:40 06/24/21 19:15 Lr - Lactated Ringers Iv IV CONT 70 mls/hr .[id number] MINAL Infusion Albumin Human 100 mls @ 60 mls/hr 06/24/21 18:00 06/25/21 04:58 Albutein IVPB 06/27/21 13:39 60 mls/hr Q6HR MINAL Administration Lactulose 30 gm 06/25/21 09:00 Lactulose 20 Gm/30 Ml Udc PO QID MINAL Lansoprazole 30 mg 06/22/21 08:00 06/24/21 08:17 Lansoprazole Oral [place]
[2021-06-25] MEDS: LACTATED RINGERS 1,000 ML 70 ML IV CONT (09:30)
[2021-06-25] MEDS: PANTOPRAZOLE SODIUM IV 40 MG VIAL IV PUSH ×2 (09:31→20:50)
[2021-06-25 09:33] LABS: Lipase 611 U/L (23-300)
--- NOTE | 2021-06-25 09:41 | PM.PNNEP ---
Progress Note: A&P Assessment and Plan (1) Acute on chronic renal failure: Code(s): N17.9 - Acute kidney failure, unspecified; N18.9 - Chronic kidney disease, unspecified Status: Acute Assessment and Plan: Sheba has chronic kidney disease. Her creatinine seems to run around 2. On renal ultrasound, the patient has smallish kidneys bilaterally. Urine electrolytes not done. UA was bland on the 1st. CK is okay Her creatinine peaked to 2.6 this admission and is now down to 2.3. Most likely this is pre renal azotemia due to her liver disease and pre renal factors related to the liver and to let the low blood pressure. (2) Decompensated hepatic cirrhosis: Code(s): K72.90 - Hepatic failure, unspecified without coma; K74.60 - Unspecified cirrhosis of liver Status: Acute Assessment and Plan: the patient is on rifaximin. She is also on lactulose. She had another paracentesis yesterday (3) Normocytic anemia: Code(s): D64.9 - Anemia, unspecified Status: Acute Assessment and Plan: Will follow this along. Hemoglobin up to 9.2. (4) Gastroesophageal reflux disease: Code(s): K21.9 - Gastro-esophageal reflux disease without esophagitis Status: Acute Assessment and Plan: She is on Prevacid at home for this (5) Hypothyroidism: Code(s): E03.9 - Hypothyroidism, unspecified Status: Acute Assessment and Plan: she is on thyroid supplementation. Subjective Date/time seen: 06/25/21 09:41 Interval history: Sheba does not feel very well today. Not very verbal. She has belly pain. She has aches and pains everywhere. She denies shortness of breath. Exam Narrative: WDWN female with eyes closed and moaning skin no rash head ncat lungs clear bilaterally cor reg no rub abd BS+ tender diffusely ext no edema. Objective Data Vital Signs Vital Signs: Vital Signs - 24 hr 06/24/21 15:18 06/24/21 20:00 06/24/21 21:31 Temperature 36.2 C L 36.5 C Pulse Rate 77 78 78 Respiratory Rate 16 20 20 Blood Pressure 90/40 L 92/42 L Pulse Oximetry 99 98 98 06/25/21 01:34 06/25/21 05:53 Temperature 36.6 C Pulse Rate 77 95 Respiratory Rate 16 18 Blood Pressure 98/40 L Pulse Oximetry 99 97 Intake/Output Intake/Output: Intake & Output 06/22/21 06/23/21 06/24/21 06/25/21 23:59 23:59 23:59 23:59 Intake Total 752 2158 920 1100 Output Total 2200 175 4400 Balance -1448 1983 -3480 1100 Meds/Results Medications: Active Medications Generic Name Dose Route Start Last Admin Trade Name Freq PRN Reason Stop Dose Admin Folic Acid 1 mg 06/22/21 09:00 06/25/21 09:31 Folic Acid 1 Mg Tablet PO 1 mg DAILY MINAL Administration Lactated Ringer's 1,000 mls @ 70 mls/hr 06/24/21 14:40 06/25/21 09:30 Lr - Lactated Ringers Iv IV CONT 70 mls/hr .[id number] MINAL Administration Albumin Human 100 mls @ 60 mls/hr 06/24/21 18:00 06/25/21 04:58 Albutein IVPB 06/27/21 13:39 60 mls/hr Q6HR MINAL Administration Lactulose 30 gm 06/25/21 09:00 06/25/21 09:29 Lactulose 20 Gm/30 Ml Udc PO 30 gm QID MINAL Administration Lansoprazole 30 mg 06/22/21 08:00 06/24/21 08:17 Lansoprazole Oral Susp 30 Mg/10 Ml Oral.Susp PO 30 mg DAILY@0800 MINAL Administration Levothyroxine Sodium 150 mcg 06/22/21 06:30 06/25/21 04:58 Levothyroxine Sodium 150 Mcg Tablet PO 150 mcg DAILY@0630 MINAL Administration Liothyronine Sodium 5 mcg 06/22/21 09:00 06/25/21 09:31 Liothyronine Sodium 5 Mcg Tablet PO 5 mcg DAILY MINAL Administration Ondansetron HCl 4 mg 06/21/21 15:48 06/22/21 15:11 Ondansetron Inj 4 Mg/2 Ml Vial IV PUSH 4 mg Q4H PRN Administration Nausea Pantoprazole Sodium 40 mg 06/24/21 21:00 06/25/21 09:31 Pantoprazole Sodium Iv 40 Mg Vial IV PUSH 40 mg Q12HR MINAL Administration Rifaximin 550 mg 06/22/21 09:00 10/05/21 09:31 Rifaximin 550 Mg Tablet PO 550
[2021-06-25] MEDS: UMECLIDINIUM/VILANTEROL 62.5-25 MCG ELLIPTA 1 PUFF INHALATION (10:19)
--- NOTE | 2021-06-25 10:33 | WPDGIPROGNO ---
Progress Note: A&P Assessment and Plan (1) Decompensated hepatic cirrhosis: Code(s): K72.90 - Hepatic failure, unspecified without coma; K74.60 - Unspecified cirrhosis of liver Status: Acute Assessment and Plan: Patient with end-stage liver disease. Apparently on the basis of primary biliary cholangitis. Currently encephalopathic with significant ascites. (2) Primary biliary cholangitis: Code(s): K74.3 - Primary biliary cirrhosis Status: Acute Assessment and Plan: Patient known to have PBC. Has been on May for some time. Currently admitted with failing liver. (3) Hepatic encephalopathy: Code(s): K72.90 - Hepatic failure, unspecified without coma Status: Acute Assessment and Plan: Patient encephalopathic this morning. Unable to give any history or discussion. Continue oral lactulose may need to be given via an NG tube. Continue Xifaxan if possible. Supportive care for now. (4) Cirrhosis of liver with ascites: Code(s): K74.60 - Unspecified cirrhosis of liver; R18.8 - Other ascites Status: Acute Assessment and Plan: Patient unable to tolerate diuresis because of azotemia worsening renal function. Intermittent paracenteses have been performed. No evidence of SBP at present. Will continue supportive care may need to consider code status. If patient improves to any significant degree. Consider transfer to tertiary care center for consideration of liver transplantation. (5) Renal failure: Code(s): N19 - Unspecified kidney failure Status: Acute Subjective Date/time seen: 06/25/21 10:33 Patient confused in poorly responsive this morning. Unable to answer any questions. Review of Systems Review of Systems: ROS unobtainable: Yes unobtainable due to mental status Exam Narrative: Patient arousable. Nonverbal. Not oriented. HEENT exam reveals some mild scleral icterus. Lungs are clear. Heart without murmur. Abdomen is distended. Shifting dullness in tympany evident. Bowel sounds are present. Extremities with cachexia proximal muscle wasting identified. Objective Data Vital Signs Vital Signs: Vital Signs - 24 hr 06/24/21 15:18 06/24/21 20:00 06/24/21 21:31 Temperature 97.1 F L 97.7 F Pulse Rate 77 78 78 Respiratory Rate 16 20 20 Blood Pressure 90/40 L 92/42 L Pulse Oximetry 99 98 98 06/25/21 01:34 06/25/21 05:53 Temperature 97.9 F Pulse Rate 77 95 Respiratory Rate 16 18 Blood Pressure 98/40 L Pulse Oximetry 99 97 Intake/Output Intake/Output: Intake & Output 06/22/21 06/23/21 06/24/21 06/25/21 23:59 23:59 23:59 23:59 Intake Total 752 2158 920 1100 Output Total 2200 175 4400 Balance -1448 1983 -3480 1100 Meds/Results Medications: Active Medications Generic Name Dose Route Start Last Admin Trade Name Freq PRN Reason Stop Dose Admin Folic Acid 1 mg 06/22/21 09:00 06/25/21 10:18 Folic Acid 1 Mg Tablet PO Not Given DAILY MINAL Lactated Ringer's 1,000 mls @ 70 mls/hr 06/24/21 14:40 06/25/21 09:30 Lr - Lactated Ringers Iv IV CONT 70 mls/hr .[id number] MINAL Administration Albumin Human 100 mls @ 60 mls/hr 06/24/21 18:00 06/25/21 04:58 Albutein IVPB 06/27/21 13:39 60 mls/hr Q6HR MINAL Administration Lactulose 30 gm 06/25/21 09:00 06/25/21 10:19 Lactulose 20 Gm/30 Ml Udc PO Not Given QID MINAL Lansoprazole 30 mg 06/22/21 08:00 06/24/21 08:17 Lansoprazole Oral Susp 30 Mg/10 Ml Oral.Susp PO 30 mg DAILY@0800 MINAL Administration Levothyroxine Sodium 150 mcg 06/22/21 06:30 06/25/21 04:58 Levothyroxine Sodium 150 Mcg Tablet PO 150 mcg DAILY@0630 MINAL Administration Liothyronine Sodium 5 mcg 06/22/21 09:00 06/25/21 10:19 Liothyronine Sodium 5 Mcg Tablet PO Not Given DAILY MINAL Ondansetron HCl 4 mg 06/21/21 15:48 06/22/21 15:11 Ondansetron Inj 4 Mg/2 Ml Vial IV PUSH 4 mg Q4H PRN Administration Nausea Pantopra
--- NOTE | 2021-06-25 14:01 | PCOTNOTE ---
Attempted to work with patient, patient not alert and unarousable, not answering questions. Attempted to have patient assist with bed mobility to reposition, requiring Total A x2 and refused to allow this therapist to perform Passive ROM in supine. Until patient is more arousable and participatory, patient may be appropriate to reduce to 2-3 days per week.
[2021-06-25 15:00] VITALS: PULSE 91; RESP 16; TEMP 36.1; O2SAT 97
[2021-06-25] MEDS: LACTULOSE ENEMA 200 GM/1,000 ML ENEMA RECTAL (18:48)
[2021-06-25 18:49] LABS: Add Urine Microscopic? YES; Appearance Urine Clear (Clear); Bilirubin Urine Negative (Negative); Blood Urine Negative (Negative); Color Urine Amber (Yellow); Glucose Urine UA Negative (Negative); Ketones Urine Negative (Negative); Leukocyte Esterase Ur Negative LEU/UL (NEGATIVE); Nitrate Urine Negative (Negative); Protein Urine Negative (Negative); Specific Grav Ur 1.016 (1.001-1.035); Urobilinogen Urine Negative mg/dL (<2.0)
--- NOTE | 2021-06-25 18:49 | PC.NURSE ---
This nurse attempted to contact the family in regards to the patients current condition and inquiring about who would be able to make her medical decisions for her since shes been non compliant today. The family friend stated that she had a phone number for a step daughter that could probably answer any questions about the patient and step in as a surrogate POA. The phone number given to this nurse was not in service. This nurse then called the personal property assessor back to see if there was an additional number but the friend was unsure of any additional information. The contact stated that she would go to the patients home and look for her address book to see if there was a different contact number for the family. During this time the step daughter Shanika Martinez reached out to this nurse to find out the information going on with the patient. This nurse informed the step daughter that we were needing someone that was a relation to the patient to step forward as a surrogate healthcare power of business attorney especially for the hospitalist to contact and discuss the patients condition and the steps going forward. The step daughter stated that she would be in contact with us and would allow the hospitalist to contact her to discuss the patients condition. This nurse informed the family member that the embedded case manager would be contacting them tomorrow to discuss what was going to happen and any paperwork that would need to be filled out and how the arrangements would be made. The family member, Shanika Martinez phone number [phone]. This nurse will follow up with casey saw operator in the morning and informed the night nurse to pass along to the day nurse.
[2021-06-25 18:54] LABS: Creatinine Urine 118.7 mg/dL; Total Protein Urine Random 17 mg/dL; Ur Ttl Prot Creatinine Ratio 0.14 mg/mg (0-0.20)
[2021-06-25 19:00] LABS: Sodium Urine Random < 5 meq/L
[2021-06-25 20:19] VITALS: BP 92/46; PULSE 89; RESP 17; TEMP 36.1; O2SAT 98
[2021-06-26] MEDS: ALBUMIN HUMAN 25% 25 GM/100 ML 100 ML IVPB ×2 (00:16→05:49)
[2021-06-26] MEDS: LACTULOSE ENEMA 200 GM/1,000 ML ENEMA RECTAL ×3 (00:54→11:41)
[2021-06-26 05:09] VITALS: BP 97/49; PULSE 96; RESP 18; TEMP 36.2; O2SAT 94
[2021-06-26] MEDS: LACTATED RINGERS 1,000 ML 70 ML IV CONT ×2 (05:48→08:06)
[2021-06-26 05:54] LABS: Basophils Absolute Auto 0.1 K/mm3 (0.0-0.1); Basophils Percent Auto 0.7 % (0.2-1.2); Eosinophils Absolute Auto 0.1 K/mm3 (0-0.3); Eosinophils Percent Auto 0.3 % (0-4.4); Hematocrit 24.7 % (37.0-47.0); Hemoglobin 8.9 g/dL (12.0-15.0); Immature Granulocyte Absolute 0.13 K/mm3 (0.00-0.031); Immature Granulocyte Percent A 0.7 % (0-0.5); Lymphocytes Absolute Auto 1.17 K/mm3 (0.9-3.2); Lymphocytes Percent Auto 6.2 % (18.3-44.2); Mean Corpuscular Volume 94.3 fl (80-100); Mean Platelet Volume 11.5 fl (7.4-10.4); Monocytes Absolute Auto 0.9 K/mm3 (0.1-0.6); Monocytes Percent Auto 4.9 % (2.6-8.5); Neutrophils Absolute Auto 16.5 K/mm3 (1.3-6.7); Neutrophils Percent Auto 87.2 % (45.5-73.1); Nucleated Red Blood Cells Perc 0.2 % (0.0-0.2); Platelet Count Result 116 k/mm3 (150-375); Red Blood Count 2.62 M/mm3 (4.2-5.4); Red Cell Distribution Width 20.3 % (11.5-14.5); White Blood Count 18.9 K/mm3 (4.5-10.0)
[2021-06-26 06:05] LABS: Alanine Aminotransferase 18 U/L (4-35); Albumin Level 3.5 g/dL (3.5-5.1); Alkaline Phosphatase 194 U/L (38-126); Anion Gap 15 mmol/L (8-16); Aspartate Amino Transferase 26 U/L (14-36); Bilirubin,Total 2.5 mg/dL (0.2-1.3); Blood Urea Nitrogen 59 mg/dL (7-17); Calcium 9.4 mg/dL (8.4-10.2); Carbon Dioxide 17 mmol/L (22-30); Chloride 104 mmol/L (98-107); Estimated CRCL calculation 16 ml/min; Estimated Glomerular Filt Rate 18; Glucose 83 mg/dL (65-110); Lipase 96 U/L (23-300); Sodium 136 mmol/L (137-145)
[2021-06-26 06:06] LABS: INR 2.5
[2021-06-26 06:09] LABS: Ammonia 83 umol/L (9-30)
[2021-06-26 06:26] LABS: Target Cells 2+ (NORMAL)
[2021-06-26] MEDS: PANTOPRAZOLE SODIUM IV 40 MG VIAL IV PUSH (08:05)
--- NOTE | 2021-06-26 08:37 | PM.IMPN ---
Progress Note: A&P Additional Plan START OF DOCTOR JAVAD?S PROGRESS NOTE Subjective: The patient is encephalopathic on this day however she is arousable, more so compared my encounter with her on June 25, 2021. Unfortunately I am unable to elicit any information from her Objective: General: -encephalopathic -No acute distress -No dyspnea -No tachypnea Heart: -Regular rate -Regular rhythm -No murmurs -No gallops -No rubs Lungs: -No wheeze -No rhonchi -No rales Abdomen: -Normal bowel sounds in all four quadrants -No rebound -No guarding -No tenderness -abdominal distention present Extremities: -2/4 pulse in all four extremities -No clubbing -No cyanosis -2+ by pedal pitting edema present Additional Details / Additional Findings / Exceptions / Miscellaneous: Pertinent Laboratory Results / Pertinent Radiology Results / Pertinent Diagnostic Results / Pertinent Vital Signs: Blood pressure 97/49, white blood count 18.9, hemoglobin 8.9, platelet count 09054, INR 2.5, creatinine 2.6, total rigors 2.5, alkaline phosphatase 1094, ammonia 83 Assessment / Plan: Primary biliary cirrhosis and primary biliary cholangitis, question end-stage. Ursodiol 600 mg p.o. b.i.d.. Monitor LFTs periodically with CMP along with PT/INR. Right upper quadrant ultrasound pending Spontaneous bacterial peritonitis prophylaxis. Levaquin 500 mg IV daily Gallbladder wall thickening. Levaquin 500 mg IV daily Ascites, status post paracentesis June 22, 2021 with aspiration of 2.2 L of fluid Hypothyroidism. Synthroid will have 50 mg p.o. daily plus Cytomel 5 mg p.o. daily GERD. Protonix 40 mg IV q.12 hours COPD. Trelegy Ellipta: 1 inhalation daily Hypertension Hyperlipidemia Smoker. Patient counseled regarding smoking cessation Psoriasis Hyperammonemia. Monitor ammonia levels intermittently. Lactulose 200 g per rectum q.6 hours. plus Xifaxan 550 mg p.o. b.i.d. Acute on chronic kidney disease, baseline creatinine approximately 2. I appreciate Nephrology evaluate the patient. Will monitor creatinine intermittently. Albumin 25 g IV q.6 hours was IV lactated Ringer's at 75 mL/hour plus sodium bicarbonate 650 mg p.o. b.i.d. Question of history of medical noncompliance. Patient will be counseled regarding medical compliance Anemia of chronic disease. Fecal occult blood is positive for which patient will need follow-up with Gastroenterology upon discharge. Will monitor hemoglobin level intermittently Thrombocytopenia, likely sequelae of primary biliary cirrhosis. Will monitor platelet count intermittently Hyponatremia. Will monitor sodium levels intermittently Elevated lipase. Monitor lipase levels intermittently DVT prophylaxis. Bilateral CT Disposition: Poor prognosis. I will speak with case management/social work to determine whether we can locate next of kin to institute comfort measures END OF DOCTOR JAVAD?S PROGRESS NOTE Subjective Date/time seen: 06/26/21 08:38 Objective Data Vital Signs Vital Signs: Vital Signs - 24 hr 06/25/21 15:00 06/25/21 20:19 06/26/21 05:09 Temperature 97.0 F L 97 F L 97.1 F L Pulse Rate 91 89 96 Respiratory Rate 16 17 18 Blood Pressure 92/46 L 97/49 L Pulse Oximetry 97 98 94 Intake/Output Intake/Output: Intake & Output 06/23/21 06/24/21 06/25/21 06/26/21 23:59 23:59 23:59 23:59 Intake Total 2158 920 1500 2250 Output Total 175 4400 500 Balance 1983 -3480 1000 2250 Meds/Results Medications: Active Medications Generic Name Dose Route Start Last Admin Trade Name Kikeq PRN Reason Stop Dose Admin Folic Acid 1 mg 06/22/21 09:00 06/26/21 08:04 Folic Acid 1 Mg Tablet PO Not Given DAILY MINAL Lactated Ringer's 1,000 mls @ 70 mls/hr 06/24/21 14:40 06/26/21 08:06 Lr - Lactated Ringers Iv IV CONT 70 mls/hr .[id number] MINAL Administration Albumin Human 100 mls @ 60 mls/hr 06/24/21 18:00 06/26/21 08:06
--- NOTE | 2021-06-26 09:26 | WPDGIPROGNO ---
Progress Note: A&P Assessment and Plan (1) Acute on chronic renal failure: Code(s): N17.9 - Acute kidney failure, unspecified; N18.9 - Chronic kidney disease, unspecified Status: Acute Assessment and Plan: Patient has persistent azotemia. BUN of 59 creatinine 2.6. Likely pre renal because of previous diuresis. She may have a component of hepatorenal syndrome. Nephrology service following appreciate their insight. She has received intravenous albumin and attempt to preserve renal function. (2) Decompensated hepatic cirrhosis: Code(s): K72.90 - Hepatic failure, unspecified without coma; K74.60 - Unspecified cirrhosis of liver Status: Acute Assessment and Plan: Patient has underlying cirrhosis of the liver felt to be secondary to PBC. Now failing appears to be end-stage. Supportive care continues. Patient has previously refused to follow-up with hepatology service in [place]. Patient appears to be encephalopathic. Lactulose enemas as she is NPO. Elevated protime and INR suggest liver is failing at this point. Agree with reconsidering resuscitation status. Supportive care and comfort care measures advised. (3) Primary biliary cholangitis: Code(s): K74.3 - Primary biliary cirrhosis Status: Acute Assessment and Plan: Patient with a known history of PBC is been on ursodeoxycholic acid for many years. (4) Cirrhosis of liver with ascites: Code(s): K74.60 - Unspecified cirrhosis of liver; R18.8 - Other ascites Status: Acute Assessment and Plan: Patient's renal function has precluded diuresis. Now status post several paracenteses for ascitic fluid. Elevated white count raises the question of possible SBP. Placed on empiric antibiotics yesterday cultures pending. (5) Chronic obstructive pulmonary disease: Code(s): J44.9 - Chronic obstructive pulmonary disease, unspecified Status: Acute (6) Leukocytosis: Code(s): D72.829 - Elevated white blood cell count, unspecified Status: Acute Assessment and Plan: Leukocytosis identified today. White count 18. She may have underlying infection. SBP is a concern. Empiric antibiotics started stool cultures continue. Subjective Date/time seen: 06/26/21 09:26 Patient lethargic and poorly arousable again today. Has received lactulose enemas. Appears encephalopathic. Review of Systems Review of Systems: ROS unobtainable: Yes unobtainable due to mental status Exam Narrative: Physical exam patient is poorly arousable. HEENT exam has mild icterus. Lungs are clear. Abdomen is distended. Shifting dullness appreciated. Significant tympany noted. Bowel sounds present. Extremities with proximal [place] wasting. Objective Data Vital Signs Vital Signs: Vital Signs - 24 hr 06/25/21 15:00 06/25/21 20:19 06/26/21 05:09 Temperature 97.0 F L 97 F L 97.1 F L Pulse Rate 91 89 96 Respiratory Rate 16 17 18 Blood Pressure 92/46 L 97/49 L Pulse Oximetry 97 98 94 Intake/Output Intake/Output: Intake & Output 06/23/21 06/24/21 06/25/21 06/26/21 23:59 23:59 23:59 23:59 Intake Total 2158 920 1500 2250 Output Total 175 4400 500 Balance 1983 -3480 1000 2250 Meds/Results Medications: Active Medications Generic Name Dose Route Start Last Admin Trade Name Kikeq PRN Reason Stop Dose Admin Folic Acid 1 mg 06/22/21 09:00 06/26/21 08:04 Folic Acid 1 Mg Tablet PO Not Given DAILY MINAL Lactated Ringer's 1,000 mls @ 70 mls/hr 06/24/21 14:40 06/26/21 08:06 Lr - Lactated Ringers Iv IV CONT 70 mls/hr .[id number] MINAL Administration Albumin Human 100 mls @ 60 mls/hr 06/24/21 18:00 06/26/21 08:06 Albutein IVPB 06/27/21 13:39 Infused Q6HR MINAL Infusion Levofloxacin/Dextrose 500 mg in 100 mls @ 100 mls/hr 06/26/21 08:40 Levaquin 500 Mg/D5w 100 Ml IVPB Q24H MINAL Levofloxacin/Dextrose 500 mg in 100 mls @ 100 mls/hr 06/26/21 09:0
[2021-06-26] MEDS: levoFLOXacin 500 MG/D5W 100 ML 500 MG/100 ML BAG 100 MG IVPB (09:31)
--- NOTE | 2021-06-26 09:57 | PM.PNNEP ---
Progress Note: A&P Assessment and Plan (1) Acute on chronic renal failure: Code(s): N17.9 - Acute kidney failure, unspecified; N18.9 - Chronic kidney disease, unspecified Status: Acute Assessment and Plan: Sheba has chronic kidney disease. Her creatinine seems to run around 2. On renal ultrasound, the patient has smallish kidneys bilaterally. Urine electrolytes show pre renal azotemia. UA was bland on the 1st. CK is okay Her creatinine peaked to 2.6 this admission. this improved and now is back up to 2.6. Most likely this is pre renal azotemia due to her liver disease and pre renal factors related to the liver and to let the low blood pressure. Blood pressure is still somewhat soft. Her albumin level is normal now. We can stop the albumin infusions. (2) Decompensated hepatic cirrhosis: Code(s): K72.90 - Hepatic failure, unspecified without coma; K74.60 - Unspecified cirrhosis of liver Status: Acute Assessment and Plan: the patient is on rifaximin. She is also on lactulose. She had another paracentesis yesterday (3) Normocytic anemia: Code(s): D64.9 - Anemia, unspecified Status: Acute Assessment and Plan: Will follow this along. Hemoglobin up to 9.2. (4) Gastroesophageal reflux disease: Code(s): K21.9 - Gastro-esophageal reflux disease without esophagitis Status: Acute Assessment and Plan: She is on Prevacid at home for this (5) Hypothyroidism: Code(s): E03.9 - Hypothyroidism, unspecified Status: Acute Assessment and Plan: she is on thyroid supplementation. Subjective Date/time seen: 06/26/21 09:57 Interval history: Sheba Seems calmer today but still only moans In response to questions.. Still not very verbal. Exam Narrative: WDWN female with eyes closed and moaning skin no rash head ncat lungs clear bilaterally cor reg no rub abd BS+ tender diffusely but seems a little bit less so ext no edema. Objective Data Vital Signs Vital Signs: Vital Signs - 24 hr 06/25/21 15:00 06/25/21 20:19 06/26/21 05:09 Temperature 36.1 C L 36.1 C L 36.2 C L Pulse Rate 91 89 96 Respiratory Rate 16 17 18 Blood Pressure 92/46 L 97/49 L Pulse Oximetry 97 98 94 Intake/Output Intake/Output: Intake & Output 06/23/21 06/24/21 06/25/21 06/26/21 23:59 23:59 23:59 23:59 Intake Total 2158 920 1500 2250 Output Total 175 4400 500 Balance 1982 1000 2250 Meds/Results Medications: Active Medications Generic Name Dose Route Start Last Admin Trade Name Dami PRN Reason Stop Dose Admin Folic Acid 1 mg 06/22/21 09:00 06/26/21 08:04 Folic Acid 1 Mg Tablet PO Not Given DAILY MINAL Lactated Ringer's 1,000 mls @ 70 mls/hr 06/24/21 14:40 06/26/21 08:06 Lr - Lactated Ringers Iv IV CONT 70 mls/hr .[id number] MINAL Administration Albumin Human 100 mls @ 60 mls/hr 06/24/21 18:00 06/26/21 08:06 Albutein IVPB 06/27/21 13:39 Infused Q6HR MINAL Infusion Levofloxacin/Dextrose 500 mg in 100 mls @ 100 mls/hr 06/26/21 08:40 Levaquin 500 Mg/D5w 100 Ml IVPB Q24H MINAL Levofloxacin/Dextrose 500 mg in 100 mls @ 100 mls/hr 06/26/21 09:00 06/26/21 09:31 Levaquin 500 Mg/D5w 100 Ml IVPB 06/26/21 09:59 100 mls/hr ONCE ONE Administration Lactulose 200 gm 06/25/21 18:00 06/26/21 05:11 Lactulose Enema 200 Gm/1,000 Ml Enema RECTAL 06/28/21 12:01 200 gm Q6HR MINAL Administration Lansoprazole 30 mg 06/22/21 08:00 06/24/21 08:17 Lansoprazole Oral Susp 30 Mg/10 Ml Oral.Susp PO 30 mg DAILY@0800 MINAL Administration Levothyroxine Sodium 150 mcg 06/22/21 06:30 06/26/21 05:24 Levothyroxine Sodium 150 Mcg Tablet PO Not Given DAILY@0630 [facility] Liothyronine Sodium 5 mcg 06/22/21 09:00 06/26/21 08:05 Liothyronine Sodium 5 Mcg Tablet PO Not Given DAILY MINAL Ondansetron HCl 4 mg 10/01/21 15:48 06/22/21 15:11 Ondansetron Inj 4 Mg/
--- NOTE | 2021-06-26 12:10 | PCRCNOTE ---
Window of time for administration has passed. See next scheduled administration.
--- NOTE | 2021-06-26 13:13 | PCOTNOTE ---
Attempted to see patient this pm, however [employer] reported patient not appropriate. Patient has been having significant diarrhea and sleeping all day. Pt not able to eat either.
[2021-06-26 14:35] LABS: Glucose Peritoneal Fluid 88 mg/dL; LDH Peritoneal Fluid 36 U/L (<63); Total Protein Peritoneal Fluid <3.0 g/dL
[2021-06-26 14:45] VITALS: BP 84/41; PULSE 103; RESP 20; TEMP 35.7; O2SAT 93
[2021-06-26] MEDS: MORPHINE SULFATE (*CRX) 2 MG/ML INJ IV PUSH (17:22)
[2021-06-26 17:40] VITALS: BP 81/32; PULSE 105
[2021-06-27 00:56] LABS: Kappa\\Lambda Light Chains 0.57 (0.26-1.65); Lambda Light Chain 173.9 mg/L (5.7-26.3)
[2021-06-27] MEDS: LORazepam INJ (*CRX) 2 MG/ML VIAL 1 MG IV PUSH ×3 (03:59→12:16)
--- NOTE | 2021-06-27 07:20 | WPDGIPROGNO ---
Progress Note: A&P Assessment and Plan (1) Decompensated hepatic cirrhosis: Code(s): K72.90 - Hepatic failure, unspecified without coma; K74.60 - Unspecified cirrhosis of liver Status: Acute Assessment and Plan: Patient with what appears to be end-stage liver disease. Currently appears to be failing. Her INR has risen her white count is elevated. Currently significantly encephalopathic. Unable to take oral intake. Plan to consider Dobbhoff tube feedings but also to instill lactulose. Lactulose enemas may be required given her current mental status. I agree we need to clarify code status. Patient appears to be failing at this time (2) Primary biliary cholangitis: Code(s): K74.3 - Primary biliary cirrhosis Status: Acute Assessment and Plan: PBC is the etiology for her cirrhosis. He had previously on May. Will continue this if she is arousable enough to take it. (3) Ascites: Code(s): R18.8 - Other ascites Status: Acute Assessment and Plan: Patient with significant ascites. Has had several paracenteses. No obvious infection but SBP suspected given her recent leukocytosis. Empiric antibiotics in progress. (4) Hepatic encephalopathy: Code(s): K72.90 - Hepatic failure, unspecified without coma Status: Acute Assessment and Plan: Patient with Hepatic encephalopathy. Briefly was more arousable when taking lactulose. Now on lactulose enemas. Will consider Dobbhoff for NG tube instillation if we can pass feeding tube. (5) Acute on chronic renal failure: Code(s): N17.9 - Acute kidney failure, unspecified; N18.9 - Chronic kidney disease, unspecified Status: Acute Assessment and Plan: Patient with significant azotemia. This is limited diuretic use. Renal service now following. Hepato renal syndrome was considered but may not be the primary etiology at this time. Subjective Date/time seen: 06/27/21 07:20 Patient remains lethargic. Not arousable enough for any conversation. Not able to maintain any oral intake at this point. Review of Systems Review of Systems: ROS unobtainable: Yes unobtainable due to mental status Exam Narrative: Physical exam patient is lying in bed. Moaning. HEENT exam reveals minimal icterus. Lungs are clear. Heart without murmur. Abdomen distended shifting dullness appreciated with some tympany. Extremities with trace edema. Proximal muscle wasting. Objective Data Vital Signs Vital Signs: Vital Signs - 24 hr 06/26/21 14:45 06/26/21 17:40 Temperature 96.2 F L Pulse Rate 103 H 105 H Respiratory Rate 20 Blood Pressure 84/41 L 81/32 L Pulse Oximetry 93 Intake/Output Intake/Output: Intake & Output 06/24/21 06/25/21 06/26/21 06/27/21 23:59 23:59 23:59 23:59 Intake Total 920 1500 2250 Output Total 4400 500 Balance -3480 1000 2250 Meds/Results Medications: Active Medications Generic Name Dose Route Start Last Admin Trade Name Freq PRN Reason Stop Dose Admin Acetaminophen 650 mg 06/26/21 17:11 Acetaminophen 650 Mg Suppository RECTAL Q6H PRN Mild Pain (1-3) or Fever Acetaminophen 650 mg 06/26/21 17:11 Acetaminophen 325 Mg Tablet PO Q4H PRN Mild Pain (1-3) or Fever Lorazepam 1 mg 06/26/21 17:12 06/27/21 03:59 Lorazepam Inj (*Crx) 2 Mg/Ml Vial IV PUSH 1 mg Q1H PRN Administration agitation/anciety Morphine Sulfate 2 mg 06/26/21 17:13 06/26/21 17:22 Morphine Sulfate (*Crx) 2 Mg/Ml Inj IV PUSH 2 mg Q1H PRN Administration Pain Rated 7-10 Morphine Sulfate 1 mg 06/26/21 17:13 Morphine Sulfate (*Crx) 2 Mg/Ml Inj IV PUSH Q1H PRN Pain Rated 4-6 Ondansetron HCl 4 mg 06/21/21 15:48 06/22/21 15:11 Ondansetron Inj 4 Mg/2 Ml Vial IV PUSH 4 mg Q4H PRN Administration Nausea Umeclidinium/Vilanterol 1 puff 06/22/21 08:00 06/26/21 10:30 Umeclidinium/Vilanterol 62.5-25 Mcg Janina
[2021-06-27] MEDS: MORPHINE SULFATE (*CRX) 2 MG/ML INJ IV PUSH (07:25)
[2021-06-27 07:33] VITALS: BP 80/31; PULSE 114; O2SAT 98
--- NOTE | 2021-06-27 08:07 | PM.IMPN ---
Progress Note: A&P Additional Plan START OF DOCTOR JAVAD?S PROGRESS NOTE Subjective: The patient is now comfort care as of the evening of June 26, 2021. She is encephalopathic and does not provide any answers to questions posed to her Objective: General: -encephalopathic -No acute distress -No dyspnea -mildly to moderately tachypneic Heart: -Regular rate -Regular rhythm -No murmurs -No gallops -No rubs Lungs: -No wheeze -bilateral rhonchi -No rales Abdomen: -Normal bowel sounds in all four quadrants -No rebound -No guarding -No tenderness -abdominal distention present Extremities: -2/4 pulse in all four extremities -No clubbing -No cyanosis -2+ by pedal pitting edema present Additional Details / Additional Findings / Exceptions / Miscellaneous: Pertinent Laboratory Results / Pertinent Radiology Results / Pertinent Diagnostic Results / Pertinent Vital Signs: Assessment / Plan: Comfort care for end-stage primary biliary cirrhosis/primary biliary cholangitis. P.r.n. Ativan, p.r.n. Tylenol. Morphine drip starting at 1 milligram/hour titrate respiratory rate of 8-14 breaths per minute. Scopolamine patch 1.5 mg q.72 hours Primary biliary cirrhosis and primary biliary cholangitis, question end-stage. Spontaneous bacterial peritonitis prophylaxis. Gallbladder wall thickening. Ascites, status post paracentesis June 22, 2021 with aspiration of 2.2 L of fluid Hypothyroidism. GERD. COPD. [place] Ellipta: 1 inhalation daily Hypertension Hyperlipidemia Smoker. Patient counseled regarding smoking cessation Psoriasis Hyperammonemia. Acute on chronic kidney disease, baseline creatinine approximately 2. I appreciate Nephrology evaluate the patient. Question of history of medical noncompliance. Patient will be counseled regarding medical compliance Anemia of chronic disease. Fecal occult blood is positive Thrombocytopenia, likely sequelae of primary biliary cirrhosis. Hyponatremia. Elevated lipase. DVT prophylaxis. Not indicated as the patient is comfort care Disposition: Comfort care END OF DOCTOR JAVAD?S PROGRESS NOTE Subjective Date/time seen: 06/27/21 08:07 Objective Data Vital Signs Vital Signs: Vital Signs - 24 hr 06/26/21 14:45 06/26/21 17:40 06/27/21 07:33 Temperature 96.2 F L Pulse Rate 103 H 105 H 114 H Respiratory Rate 20 Blood Pressure 84/41 L 81/32 L 80/31 L Pulse Oximetry 93 98 Intake/Output Intake/Output: Intake & Output 06/24/21 06/25/21 06/26/21 06/27/21 23:59 23:59 23:59 23:59 Intake Total 920 1500 2250 Output Total 4400 500 Balance -3480 1000 2250 Meds/Results Medications: Active Medications Generic Name Dose Route Start Last Admin Trade Name Freq PRN Reason Stop Dose Admin Acetaminophen 650 mg 06/26/21 17:11 Acetaminophen 650 Mg Suppository RECTAL Q6H PRN Mild Pain (1-3) or Fever Acetaminophen 650 mg 06/26/21 17:11 Acetaminophen 325 Mg Tablet PO Q4H PRN Mild Pain (1-3) or Fever Lorazepam 1 mg 06/26/21 17:12 06/27/21 03:59 Lorazepam Inj (*Crx) 2 Mg/Ml Vial IV PUSH 1 mg Q1H PRN Administration agitation/anciety Morphine Sulfate 2 mg 06/26/21 17:13 06/27/21 07:25 Morphine Sulfate (*Crx) 2 Mg/Ml Inj IV PUSH 2 mg Q1H PRN Administration Pain Rated 7-10 Morphine Sulfate 1 mg 06/26/21 17:13 Morphine Sulfate (*Crx) 2 Mg/Ml Inj IV PUSH Q1H PRN Pain Rated 4-6 Ondansetron HCl 4 mg 06/21/21 15:48 06/22/21 15:11 Ondansetron Inj 4 Mg/2 Ml Vial IV PUSH 4 mg Q4H PRN Administration Nausea Umeclidinium/Vilanterol 1 puff 06/22/21 08:00 06/27/21 08:07 Umeclidinium/Vilanterol 62.5-25 Mcg Ellipta INHALATION Not Given DAILYRT [facility] Radiology Results: ITS Impressions Chest X-Ray 06/21/21 14:16 IMPRESSION: Low lung volumes and mild bibasilar atelectasis Head
--- NOTE | 2021-06-27 09:00 | PCOTNOTE ---
Pt. d/c from OT services on 06/27 per chart review and nurse and [facility]OS report. No longer appropriate for skilled OT services at this time, due to change in condition.
[2021-06-27] MEDS: MORPHINE SULFATE INJ (*CRX) 50 MG in SODIUM CHLORIDE 0.9% IV 95 ML IV CONT (09:27)
[2021-06-27] MEDS: SCOPOLAMINE 1.5 MG PATCH TRANSDERM (09:28)
--- NOTE | 2021-06-27 10:55 | PCNFU ---
Nutrition Follow-Up Complete: Inadequate Oral Intake as related to encephalopathy as evidenced by poor po intake reported. Goal: Adequate Intake of at least 75% of meals/supplements patient is not meeting goal. No new goal. Pt current nutrition is NPO. Last recorded weight is 64.5 kg, down from 69.7 kg on admit. Bowel Motility:+BM 06/26 Labs Reviewed:Cr 2.6,GFR 18, BUN 59, Na 136, Hct 24.7, Hgb 8.9 Meds Noted:Morphine Additional Notes: Nutrition follow up. Patient has been changed to NPO/comfort measures only. No further nutritional needs at this time. Monitoring: RD will monitor every 5 days.
[2021-06-27 12:16] VITALS: BP 74/38; PULSE 104
[2021-06-27 13:56] LABS: Complement Total CH50 13 U/mL (31-60)
--- NOTE | 2021-06-27 14:10 | PM.EVENT ---
Event Note Event Note Event Note: I was informed by nursing that the patient is on comfort measures. I will sign off.
[2021-06-27 15:10] VITALS: BP 46/37; PULSE 112
--- NOTE | 2021-06-27 16:05 | PC.NURSE ---
Shashank Benitez RN, Shi RN and this nurse verified patient has at 16:04. POA notified, home [facility] notified they will be out in the morning to molded goods spot picker the patient. Patient checklist completed. Patient has no belonging present.
--- NOTE | 2021-06-27 16:31 | PM.DS ---
DS: Admitting Diagnosis Discharge Date 4:04 p.m. on June 27, 2021 Admitting Diagnosis Hepatic failure DS: Summary Hospital Course Hospital Course: See discharge summary below Time Spent with Patient Time attestation: Total time spent providing and/or coordinating discharge services: START OF DOCTOR YODER DISCHARGE SUMMARY Date of Admission: June 21, 2021 Date of mint: 4:04 p.m. on June 27, 2021 Primary Diagnosis: End-stage primary biliary cirrhosis/primary biliary cholangitis Secondary Diagnosis: Gallbladder wall thickening Ascites, status post paracentesis June 22, 2021 with aspiration of 2.2 L of fluid Hypothyroidism GERD COPD Hypertension Hyperlipidemia Smoker Psoriasis Hyperammonemia Acute on chronic kidney disease, baseline creatinine approximately 2 Question of history of medical noncompliance Anemia of chronic disease with fecal occult blood positive stool Thrombocytopenia, likely sequelae of primary biliary cirrhosis Hyponatremia Elevated lipase Consultations: Nephrology, Gastroenterology Disposition: Patient at 4:04 p.m. on June 27, 2021 Discharge Medications: None dispensed as the patient is END OF DOCTOR PARESH DISCHARGE SUMMARY DS: Data Data Completed and Pending Labs on day of discharge: Labs from last 24 hours 06/24/21 06/24/21 17:28 17:28 Tot Complement (CH50) 13 L [place]/Lambda Ratio 0.57 Free [place] Light Chains 99.9 H Free [place] Light Chain 173.9 H Preliminary micro results at discharge 06/22/21 11:08 Anaerobic Culture - Preliminary Ascites Fluid Discharge Plan Discharge Consulting providers: Nico Carrizales ; Louie Miranda ; Anisa Ledbetter Discharging Clinician: Dr. Ledbetter Patient Disposition: Patient Instructions: Lactulose (By mouth), Acute Kidney Injury (DC), Pain Management (DC), Fall Prevention for Older Adults (DC), Ascites (DC), Weakness (DC), Low-Sodium Diet (DC), Encephalopathy (DC), Paracentesis (DC) Discharge Medications: Discontinued rosuvastatin [Crestor] 20 mg tablet 20 mg PO DAILY Qty: 90 RF: 1 levothyroxine 150 mcg tablet 150 mcg PO DAILY Qty: 90 RF: 1 liothyronine [Cytomel] 5 mcg tablet 5 mcg PO DAILY Qty: 90 RF: 1 lansoprazole [Prevacid] 30 mg capsule,delayed release(DR/EC) 30 mg PO DAILY RF: 0 spironolactone 25 mg Tablet 25 mg PO BID Qty: 60 RF: 0 tamsulosin 0.4 mg Capsule 0.4 mg PO QAM Qty: 30 RF: 1 ursodiol 300 mg capsule 600 mg PO BID RF: 0 folic acid 1 mg tablet 1 mg PO DAILY RF: 0 [place]oro Ellipta 62.5-25 mcg/actuation blister with device 1 inh INHALATION Q24H Qty: 3 RF: 3 Date of admission: 06/21/21 15:48 Primary Care Provider: Solo Alcocer Admitting Provider: Umesh Juares Attending physician on admission: Ellen Woods Condition: Guarded Prognosis Quality VTE Prophylaxis VTE prophylaxis: mechanical ordered
[2021-06-28 04:53] LABS: Anti Nuclear Antibody Pattern Nuclear, Speckled; Anti Nuclear Antibody Titer >=1:1280 (Negative)
--- NOTE | 2021-06-28 13:28 | DS_ITS ---
This report was recreated on [id number] on July 05, 2021. Original report was signed by Dr. Anisa Ledbetter on 2020 at 1408. Discharge Summary Probable Cause of Probable Cause of : End-stage cirrhosis Summary Hospital Course: START OF DOCTOR GLYNNS DISCHARGE SUMMARY Date of Admission: June 21, 2021 Date of mint: 4:04 p.m. on June 27, 2021 Primary Diagnosis: End-stage primary biliary cirrhosis/primary biliary cholangitis Secondary Diagnosis: Gallbladder wall thickening Ascites, status post paracentesis June 22, 2021 with aspiration of 2.2 L of fluid Hypothyroidism GERD COPD Hypertension Hyperlipidemia Smoker Psoriasis Hyperammonemia Acute on chronic kidney disease, baseline creatinine approximately 2 Question of history of medical noncompliance Anemia of chronic disease with fecal occult blood positive stool Thrombocytopenia, likely sequelae of primary biliary cirrhosis Hyponatremia Elevated lipase Consultations: Nephrology, Gastroenterology Disposition: Patient at 4:04 p.m. on June 27, 2021 Discharge Medications: None dispensed as the patient is END OF DOCTOR JAVAD?S DISCHARGE SUMMARY This dictation may have been done utilizing a voice recognition system. Attempts have been made to correct errors. However, there may be uncorrected grammatical, spelling, and recognition errors present. Report Initialized date/time: Anias Ledbetter DO 06/28/21 / 1328 Electronically signed by: Anisa Ledbetter DO 06/28/21 1408 [facility]rac[facility]
[2021-06-29 14:26] LABS: Amylase Peritoneal Fluid 6 U/L
[2021-07-01 07:15] LABS: Albumin Peritoneal Fluid 0.5 g/dL
== END 2021-06-27 16:05 | disposition expired | DRG 432 ==
LOC: ANHED 16:38 → ANH3MED 06-22 16:17
PROVIDERS: Internal Medicine; Internal Medicine Critical Care Medicine; Internal Medicine Gastroenterology; Internal Medicine Nephrology; Physician Assistant; Admitting Provider Family Medicine; Emergency Provider Emergency Medicine; PCP Internal Medicine; Visit Provider Physician Assistant
DX: K74.3 Primary biliary cirrhosis (principal); K72.00 Acute and subacute hepatic failure without coma; R18.8 Other ascites; N17.9 Acute kidney failure, unspecified; E87.1 Hypo-osmolality and hyponatremia; K74.60 Unspecified cirrhosis of liver; N18.9 Chronic kidney disease, unspecified; E03.9 Hypothyroidism, unspecified; K21.9 Gastro-esophageal reflux disease without esophagitis; J44.9 Chronic obstructive pulmonary disease, unspecified; E78.2 Mixed hyperlipidemia; L40.50 Arthropathic psoriasis, unspecified; D63.8 Anemia in other chronic diseases classified elsewhere; I10 Essential (primary) hypertension; D69.59 Other secondary thrombocytopenia; E78.5 Hyperlipidemia, unspecified; R29.6 Repeated falls; Z87.891 Personal history of nicotine dependence; Z91.14 Patient's other noncompliance with medication regimen
CPT/HCPCS: 36415; 36600; 49082; 49083; 70450; 71046; 76705; 76775; 80048; 80053; 80076; 81001; 82042; 82140; 82150; 82274; 82375; 82533; 82550; 82570; 82607; 82728; 82746; 82805; 82945; 83050; 83540; 83550; 83605; 83615; 83690; 83735; 83883; 83970; 84100; 84156; 84157; 84300; 84439; 84443; 84480; 85025; 85027; 85046; 85610; 85730; 86038; 86039; 86140; 86160; 86162; 87070; 87075; 87205; 89051; 92610; 93005; 94640; 97161; 97166; 99285; A9270; C9113; J1956; J2060; J2270; J2405; J2543; J7120; P9047